=== PATIENT | female | born 1990 | race Caucasian/White ===

== ENCOUNTER → 2018-10-27 15:14 | Outpatient (CLI) | payer OTHER, MEDICAID, SELFPAY | PROVIDERS: PCP Family Medicine; Visit Provider Physician Assistant | DX: N89.8 Other specified noninflammatory disorders of vagina (principal) | CPT/HCPCS: 87210 ==

== ENCOUNTER → 2018-11-17 19:17 | Outpatient (CLI) | payer OTHER, MEDICAID, SELFPAY ==
[2018-11-17 21:14] LABS: Urine N gonorrhoeae NOT DETECTED
[2018-11-17 21:57] LABS: Urine Chlamydia NOT DETECTED
== END ==
PROVIDERS: PCP Family Medicine; Visit Provider Physician Assistant
DX: R35.0 Frequency of micturition (principal); Z11.3 Encounter for screening for infections with a predominantly sexual mode of transmission
CPT/HCPCS: 87086; 87491; 87591

== ENCOUNTER → 2018-12-09 16:30 | Outpatient (CLI) | payer OTHER, MEDICAID, SELFPAY ==
[2018-12-09 18:22] LABS: HCG Quantitative /Beta subunit < 2.39 mIU/mL
== END ==
PROVIDERS: PCP Family Medicine; Visit Provider Physician Assistant
DX: R35.0 Frequency of micturition (principal)
CPT/HCPCS: 36415; 84702

== ENCOUNTER → 2019-03-30 14:42 | Outpatient (CLI) | payer OTHER, MEDICAID, SELFPAY ==
[2019-03-30 15:50] LABS: HCG Quantitative /Beta subunit < 2.39 mIU/mL
== END ==
PROVIDERS: PCP Family Medicine; Visit Provider Obstetrics & Gynecology
DX: Z34.81 Encounter for supervision of other normal pregnancy, first trimester (principal)
CPT/HCPCS: 36415; 84702

== ENCOUNTER 2019-05-26 11:27 | Emergency (ER) | payer OTHER, MEDICAID, SELFPAY ==
[2019-05-26 11:30] VITALS: BP 105/52; PULSE 74; RESP 16; TEMP 36.8; O2SAT 97
[2019-05-26 11:52] LABS: Bacteria Urine None Seen
--- NOTE | 2019-05-26 12:01 | DI.US.S_ITS ---
PROCEDURE: US OB <= 14 WEEKS FETUS INDICATIONS: CRAMPING OUTSIDE/PRIOR DATING DATA: Last menstrual period (LMP): Unknown. LMP-based estimated date of delivery (PORSCHE): Unknown. First dating scan (date and location): 05/26/19. Estimated date of delivery (PORSCHE) from first dating scan: 01/21/20. TECHNIQUE: Real-time scanning was performed of the fetus and maternal pelvic organs, with image documentation. Endovaginal scanning was also performed to better visualize the fetus and maternal ovaries. COMPARISON: None. FINDINGS: Embryo: Possible early gestational sac is noted within the endometrium and measures 1 cm in diameter. Estimated gestational age is 5 weeks 5 days. No pole is seen. No cardiac activity is detected. Measurement variability in dating: +/- 4 weeks by LMP, +/- 7 days by mean sac diameter (use before 6 weeks gestation if crown-rump length not able to be measured), +/- 5 days by crown-rump length (up to 8 weeks 6 days gestation), +/- 7 days by crown-rump length (up to 13 weeks 6 days gestation). Maternal organs: 2 cm corpus luteal cyst is noted in left ovary. Right ovary is not well seen on this study Limited images through the kidneys demonstrate no hydronephrosis. IMPRESSION: 1. Single gestational sac seen within the endometrium. No pole or cardiac activity is detected. Followup with serial beta-hCG level and ultrasound is recommended for evaluation of viable . Dictated by: Randy Tineo M.D. on 05/26/2019 at 12:44 Approved by: Randy Tineo M.D. on 05/26/2019 at 12:46
[2019-05-26 12:03] LABS: Culture Indicated Urine Specimen Cultured; Hyaline Casts Urine 0-1/LPF; Mucus Urine 2+ (Negative); RBC Urine 10-30/HPF (0-5/HPF); Squamous Epithelial Cell Urine 1-5 /HPF (0-5/HPF); WBC Urine 5-10/HPF (0-5/HPF)
--- NOTE | 2019-05-26 12:06 | ED.PREGNANCY ---
HPI - <MOSHE Chang - Last Filed: 05/26/19 18:48> General Chief complaint: Urogenital-Female Stated complaint: 6 wks prg in pain Time Seen by Provider: 05/26/19 11:44 Source: patient Mode of arrival: ambulatory Limitations: no limitations History of Present Illness HPI Narrative: 28-year-old female , presents emergency department today complaining of lower abdominal cramping starting yesterday when she was moving linen to different floors while at work. States the cramping in her lower pelvic region started yesterday afternoon and resolved this morning, but returned later today while she was at work. Patient states she has had nausea and vomiting with this and reports 1 episode of syncope a few weeks ago, she felt lightheaded during this time had not been drinking a lot of fluid and had not eaten, she felt weak and collapsed on the floor but was able to hear her grandmother around her. Patient also reports she has had worsening vision over the past few months, was recently seen by her eye doctor and her prescription was updated significantly. She does not have a new prescription at this time. Does report eye strain and a 2/10 dull aching headache that occurs behind her eyes mostly during the day. Denies vaginal bleeding, vaginal spotting, vomiting at this time, recent syncope, double vision, vision loss, confusion, denies hitting her, chest pain, shortness of breath, abdominal pain other than lower pelvic cramping, or increased swelling in her legs. MD Complaint: abdominal pain Onset (ago): day(s) Pain Consistency: intermittent Location: abdomen Severity: moderate Severity scale (1-10): 4 Quality: Cramping Radiation: abdomen Relieving factors: none Exacerbating factors: none Date of Last Menstrual Period: 04/11/19 Patient : Yes Related Data Previous Rx's Medication Instructions Recorded cephalexin 500 mg PO BID 5 Days #10 cap 05/26/19 Allergies Allergy/AdvReac Type Severity Reaction Status Date / Time amoxicillin Allergy Severe UNK Verified 11/17/18 18:45 Penicillins Allergy Severe UNK Verified 11/17/18 18:45 Review of Systems <MOSHE Chang - Last Filed: 05/26/19 18:48> Review of Systems REVIEW OF SYSTEMS: GENERAL: Denies fever or chills. HENT: No head trauma, hearing loss or sore throat. EYES: No loss of vision, double vision. See HPI. CARDIOVASCULAR: No chest pain , see HPI. RESPIRATORY: No shortness of breath or cough. GASTROINTESTINAL: Complains of vomiting, see HPI. GENITOURINARY: Complains of lower abdominal cramping, see HPI. MUSCULOSKELETAL: No pain, weakness, or deformities. INTEGUMENTARY: No rash, lesions, or pruritus. NEURO: No numbness, tingling, memory loss, or confusion. PSYCH: No behavior or mood changes. PMFSH - <MOSHE Chang - Last Filed: 05/26/19 18:48> Past Medical History Medical history: Reports non-contributory Date of Last Menstrual Period: 04/11/19 Patient : Yes Exam <MOSHE Chang - Last Filed: 05/26/19 18:48> Initial Vital Signs Initial Vital Signs: Vital Signs Temperature 98.2 F 05/26/19 11:30 Pulse Rate 74 05/26/19 11:30 Respiratory Rate 16 05/26/19 11:30 Blood Pressure 105/52 L 05/26/19 11:30 Pulse Oximetry 97 05/26/19 11:30 PHYSICAL EXAMINATION: GENERAL: Well groomed, alert, and cooperative. Answers questions promptly and appropriately. Vital signs noted. HENT: Normocephalic, atraumatic. Oral mucosa is pink and moist. EYES: PERRLA, EOMIs, conjunctiva pink, sclera white, no periorbital swelling. NECK: Full range of motion. Nontender with palpation to cervical spine. CHEST: Normal to inspection and without deformities. CARDIOVASCULAR: S1 and S2 sounds normal. Regular rate and rhythm, no murmurs, clicks, or bruits. No pedal edema. RESPIRATORY: Normal respiratory rate, trachea midline, airway patent. No stridor, nasal flaring or accessory muscle use. Lungs are clear in all smith without wheeze, rhonchi, or crackles. GASTROINTESTINAL: Bowel sounds normoactive. Abdomen is soft and non-tender. No organomegaly. MUSCULOSKELETAL: Normal gait and coordination. Equal tone and mass bilaterally. No spinal tenderness or deformities. EXTREMITIES: CMS intact. Moves all extremities. SKIN: Warm, dry, soft, appropriate color for ethnicity. No lesions, rashes, or wounds. NEURO: Alert and Oriented X 3. CN III-XII intact. Good coordination. No ataxia, or sensory deficits, or cognitive issues. PSYCH: Appropriate affect and mood. <Chasity Toussaint DO - Last Filed: 05/27/19 07:16> Initial Vital Signs Initial Vital Signs: Vital Signs Temperature 98.2 F 05/26/19 11:30 Pulse Rate 74 05/26/19 11:30 Respiratory Rate 16 05/26/19 11:30 Blood Pressure 105/52 L 05/26/19 11:30 Pulse Oximetry 97 05/26/19 11:30 Scores <MOSHE Chang - Last Filed: 05/26/19 18:48> Nexus Score for C-Spine Focal Neurologic deficit present: No Midline spinal tenderness present: No Altered level of conciousness present: No Intoxication present: No Distracting Injury Present: No Nexus Criteria for C-spine: 0 Course <MOSHE Chang - Last Filed: 05/26/19 18:48> Orders Ordered: Discontinued Medications Sodium Chloride (Normal Saline 0.9%) 1,000 mls @ 1,000 mls/hr IV BOLUS ONE Stop: 05/26/19 13:00 Last Infusion: 05/26/19 13:53 Dose: 0 mls/hr Admin: 05/26/19 12:18 Dose: 1,000 mls/hr Reevaluation(s) Reevaluation #1: After administration of 1 L of normal saline, patient stated she felt much better and the cramping decreased. At this point patient was wanting to return home. Follow up instructions discussed. Consultations Consultation #1: Patient staffed with Dr. Toussaint. Vital Signs - 8 hr 05/26/19 11:30 05/26/19 14:23 Temperature 98.2 F Pulse Rate 74 70 Respiratory Rate 16 16 Blood Pressure 105/52 L Blood Pressure [Right Arm] 104/64 Pulse Oximetry 97 100 <Chasity Toussaint DO - Last Filed: 05/27/19 07:16> Orders Ordered: Discontinued Medications Sodium Chloride (Normal Saline 0.9%) 1,000 mls @ 1,000 mls/hr IV BOLUS ONE Stop: 05/26/19 13:00 Last Infusion: 05/26/19 13:53 Dose: 0 mls/hr Admin: 05/26/19 12:18 Dose: 1,000 mls/hr Vital Signs - 8 hr 05/26/19 11:30 05/26/19 14:23 Temperature 98.2 F Pulse Rate 74 70 Respiratory Rate 16 16 Blood Pressure 105/52 L Blood Pressure [Right Arm] 104/64 Pulse Oximetry 97 100 MDM - OB/Uterine Contractions <MOSHE Chang - Last Filed: 05/26/19 18:48> Differential Diagnosis Likely normal delivery at term Medical Records Attestation: I reviewed the patient's medical records. Lab Data Attestation: I reviewed the patient's lab results. Result diagrams: 05/26/19 12:10 05/26/19 12:10 Lab Results 05/26/19 05/26/19 05/26/19 Range/Units 11:51 12:10 12:10 WBC 13.0 H (4.5-11.0) X10^3/uL RBC 3.95 L (4.0-5.2) X10^6/uL Hgb 13.1 (12.0-16.0) g/dL Hct 39.4 (36-46) % MCV 99.6 (80-100) fL MCH 33.1 (26-34) PG MCHC 33.3 (30-36) % RDW 13.7 (11.6-14.8) % Plt Count 286 (150-400) X10^3/uL Neut % (Auto) 77.3 H (50-75) % Lymph % (Auto) 14.8 L (25-40) % [place] % (Auto) 5.6 (3-14) % Eos % (Auto) 1.9 L (2-4) % Baso % (Auto) 0.4 (0-2) % Neut # (Auto) 04620 H (1831-7671) /uL Lymph # (Auto) 1900 (8304-1324) /uL [place] # (Auto) 700 (0-900) /uL Eos # (Auto) 300 (0-450) /uL Baso # (Auto) 0 (0-100) /uL Sodium 140 (137-145) mmol/L Potassium 3.9 (3.4-5.1) mmol/L Chloride 106 (98-107) mmol/L Carbon Dioxide 25 (22-32) mmol/L BUN 8 (7-17) mg/dL Creatinine 0.60 (0.52-1.04) mg/dL Estimated GFR > 60.0 (>60) mL/min BUN/Creatinine Ratio 13.3 (6-22) Glucose 80 (70-100) mg/dL Calcium 8.9 (8.4-10.2) mg/dL Total Bilirubin 0.4 (0.2-1.3) mg/dL AST 13 L (14-36) IU/L ALT 13 (9-52) IU/L Alkaline Phosphatase 52 (38-126) U/L Total Protein 6.6 (6.3-8.2) g/dL Albumin 3.9 (3.5-5.0) g/dL Globulin 2.7 (1.7-4.1) g/dL Albumin/Globulin Ratio 1.4 (1.0-2.8) HCG, Quant 98246 mIU/mL Urine RBC 10-30/hpf H (0-5/HPF) Urine WBC 5-10/hpf H (0-5/HPF) Ur Squamous Epith Cells 1-5 /hpf (0-5/HPF) Urine Bacteria None seen (None) Hyaline Casts 0-1/lpf (None) Urine Mucus 2+ H (Negative) Ur Culture Indicated? Specimen cultured Blood Type 05/26/19 Range/Units 12:10 WBC (4.5-11.0) X10^3/uL RBC (4.0-5.2) X10^6/uL Hgb (12.0-16.0) g/dL Hct (36-46) % MCV (80-100) fL MCH (26-34) PG MCHC (30-36) % RDW (11.6-14.8) % Plt Count (150-400) X10^3/uL Neut % (Auto) (50-75) % Lymph % (Auto) (25-40) % [place]undy % (Auto) (3-14) % Eos % (Auto) (2-4) % Baso % (Auto) (0-2) % Neut # (Auto) (4721-8215) /uL Lymph # (Auto) (2940-3545) /uL Dundy # (Auto) (0-900) /uL Eos # (Auto) (0-450) /uL Baso # (Auto) (0-100) /uL Sodium (137-145) mmol/L Potassium (3.4-5.1) mmol/L Chloride (98-107) mmol/L Carbon Dioxide (22-32) mmol/L BUN (7-17) mg/dL Creatinine (0.52-1.04) mg/dL Estimated GFR (>60) mL/min BUN/Creatinine Ratio (6-22) Glucose (70-100) mg/dL Calcium (8.4-10.2) mg/dL Total Bilirubin (0.2-1.3) mg/dL AST (14-36) IU/L ALT (9-52) IU/L Alkaline Phosphatase (38-126) U/L Total Protein (6.3-8.2) g/dL Albumin (3.5-5.0) g/dL Globulin (1.7-4.1) g/dL Albumin/Globulin Ratio (1.0-2.8) HCG, Quant mIU/mL Urine RBC (0-5/HPF) Urine WBC (0-5/HPF) Ur Squamous Epith Cells (0-5/HPF) Urine Bacteria (None) Hyaline Casts (None) Urine Mucus (Negative) Ur Culture Indicated? Blood Type O Positive Point of Care Testing Test Results Positive Urine Dip Bedside Urine Glucose Negative Bedside Urine Bilirubin + 1 Bedside Urine Ketone +/- 5 Urine Specific [place] 1.025 Bedside Urine Occult Blood +++ Bedside Urine pH 5.5 Bedside Urine Protein +/- 15 Bedside Urine Urobilinogen +/- 1mg Bedside Urine Nitrite - Negative Bedside Urine Leukocytes + 70 Esterase MDM Narrative Medical decision making narrative: I suspect that patient has a mild UTI, due to positive leukocytes in her urine, and slightly elevated WBC. Due to patient being , medication was given to treat this condition, cephalexin was used as her allergies penicillin were only rash, and this is safe in . I uncertain the direct cause of her lower abdominal cramping, however less suspicion for a miscarriage due to live gestational sac implanted in uterus, lack of vaginal bleeding,and appropriate levels of serum HCG. Less likely tubal , as gestational sac was seen within the uterus. Strict return precautions given and follow-up instructions discussed. <Chasity Toussaint DO - Last Filed: 05/27/19 07:16> Lab Data Lab Results 05/26/19 05/26/19 05/26/19 Range/Units 11:51 12:10 12:10 WBC 13.0 H (4.5-11.0) X10^3/uL RBC 3.95 L (4.0-5.2) X10^6/uL Hgb 13.1 (12.0-16.0) g/dL Hct 39.4 (36-46) % MCV 99.6 (80-100) fL MCH 33.1 (26-34) PG MCHC 33.3 (30-36) % RDW 13.7 (11.6-14.8) % Plt Count 286 (150-400) X10^3/uL Neut % (Auto) 77.3 H (50-75) % Lymph % (Auto) 14.8 L (25-40) % Dundy % (Auto) 5.6 (3-14) % Eos % (Auto) 1.9 L (2-4) % Baso % (Auto) 0.4 (0-2) % Neut # (Auto) 29368 H (3723-7511) /uL Lymph # (Auto) 1900 (1294-6584) /uL Dundy # (Auto) 700 (0-900) /uL Eos # (Auto) 300 (0-450) /uL Baso # (Auto) 0 (0-100) /uL Sodium 140 (137-145) mmol/L Potassium 3.9 (3.4-5.1) mmol/L Chloride 106 (98-107) mmol/L Carbon Dioxide 25 (22-32) mmol/L BUN 8 (7-17) mg/dL Creatinine 0.60 (0.52-1.04) mg/dL Estimated GFR > 60.0 (>60) mL/min BUN/Creatinine Ratio 13.3 (6-22) Glucose 80 (70-100) mg/dL Calcium 8.9 (8.4-10.2) mg/dL Total Bilirubin 0.4 (0.2-1.3) mg/dL AST 13 L (14-36) IU/L ALT 13 (9-52) IU/L Alkaline Phosphatase 52 (38-126) U/L Total Protein 6.6 (6.3-8.2) g/dL Albumin 3.9 (3.5-5.0) g/dL Globulin 2.7 (1.7-4.1) g/dL Albumin/Globulin Ratio 1.4 (1.0-2.8) HCG, Quant 46305 mIU/mL Urine RBC 10-30/hpf H (0-5/HPF) Urine WBC 5-10/hpf H (0-5/HPF) Ur Squamous Epith Cells 1-5 /hpf (0-5/HPF) Urine Bacteria None seen (None) Hyaline Casts 0-1/lpf (None) Urine Mucus 2+ H (Negative) Ur Culture Indicated? Specimen cultured Blood Type 05/26/19 Range/Units 12:10 WBC (4.5-11.0) X10^3/uL RBC (4.0-5.2) X10^6/uL Hgb (12.0-16.0) g/dL Hct (36-46) % MCV (80-100) fL MCH (26-34) PG MCHC (30-36) % RDW (11.6-14.8) % Plt Count (150-400) X10^3/uL Neut % (Auto) (50-75) % Lymph % (Auto) (25-40) % [place]undy % (Auto) (3-14) % Eos % (Auto) (2-4) % Baso % (Auto) (0-2) % Neut # (Auto) (0350-6357) /uL Lymph # (Auto) (5726-3715) /uL [place]undy # (Auto) (0-900) /uL Eos # (Auto) (0-450) /uL Baso # (Auto) (0-100) /uL Sodium (137-145) mmol/L Potassium (3.4-5.1) mmol/L Chloride (98-107) mmol/L Carbon Dioxide (22-32) mmol/L BUN (7-17) mg/dL Creatinine (0.52-1.04) mg/dL Estimated GFR (>60) mL/min BUN/Creatinine Ratio (6-22) Glucose (70-100) mg/dL Calcium (8.4-10.2) mg/dL Total Bilirubin (0.2-1.3) mg/dL AST (14-36) IU/L ALT (9-52) IU/L Alkaline Phosphatase (38-126) U/L Total Protein (6.3-8.2) g/dL Albumin (3.5-5.0) g/dL Globulin (1.7-4.1) g/dL Albumin/Globulin Ratio (1.0-2.8) HCG, Quant mIU/mL Urine RBC (0-5/HPF) Urine WBC (0-5/HPF) Ur Squamous Epith Cells (0-5/HPF) Urine Bacteria (None) Hyaline Casts (None) Urine Mucus (Negative) Ur Culture Indicated? Blood Type O Positive Point of Care Testing Test Results Positive Urine Dip Bedside Urine Glucose Negative Bedside Urine Bilirubin + 1 Bedside Urine Ketone +/- 5 Urine Specific [place] 1.025 Bedside Urine Occult Blood +++ Bedside Urine pH 5.5 Bedside Urine Protein +/- 15 Bedside Urine Urobilinogen +/- 1mg Bedside Urine Nitrite - Negative Bedside Urine Leukocytes + 70 Esterase Discharge Plan Departure Patient Disposition: Home Clinical Impression: UTI (urinary tract infection) Discharge Date/Time: 05/26/19 14:29 Interventions: ED Discharge Assessment Last Done: 05/26/19 14:28 Instructions: DI for Urinary Tract Infection (UTI) Activity Restrictions/Additional Instructions: Thank you for entrusting me with your care today. As discussed, her laboratory work and ultrasound show a healthy gestational sac within the uterus. However follow-up with her OB is recommended for further testing. Your urinalysis showed and urinary tract infection, I have prescribed a medication that is safe to take during . Please monitor yourself for hives, shortness of breath, chest pain, nausea vomiting or diarrhea, if these occur please return emergency department. Additionally return if you of heavy bleeding. Prescriptions: New cephalexin 500 mg capsule 500 mg PO BID 5 Days Qty: 10 RF: 0 Referrals: Criselda Griffin MD [Primary Care Provider] - <Chasity Toussaint DO - Last Filed: 05/27/19 07:16> Cosign ED Attending Coscindyature Attestation: I was immediately available in the department for consultation. Documentation has been reviewed. I agree with assessment and plan.
--- NOTE | 2019-05-26 12:10 | ED_ITS ---
HPI - <MOHSE Chang - Last Filed: 05/26/19 18:48> General Chief complaint: Urogenital-Female Stated complaint: 6 wks prg in pain Time Seen by Provider: 05/26/19 11:44 Source: patient Mode of arrival: ambulatory Limitations: no limitations History of Present Illness HPI Narrative: 28-year-old female , presents emergency department today complaining of lower abdominal cramping starting yesterday when she was moving linen to different floors while at work. States the cramping in her lower pelvic region started yesterday afternoon and resolved this morning, but retur nora later today while she was at work. Patient states she has had nausea and vomiting with this and reports 1 episode of syncope a few weeks ago, she felt lightheaded during this time had not been drinking a lot of fluid and had not eaten, she felt weak and collapsed on the floor but was able to hear her grandmother around her. Patient also reports she has had worsening vision over the past few months, was recently seen by her eye doctor and her prescription was updated significantly. She does not have a new prescription at this time. Does report eye strain and a 2/10 dull aching headache that occurs behind her eyes mostly during the day. Denies vaginal bleeding, vaginal spotting, vomiting at this time, recent syncope, double vision, vision loss, confusion, denies hitting her, chest pain, shortness of breath, abdominal pain other than lower pelvic cramping, or increased swelling in her legs. MD Complaint: abdominal pain Onset (ago): day(s) Pain Consistency: intermittent Location: abdomen Severity: moderate Severity scale (1-10): 4 Quality: Cramping Radiation: abdomen Relieving factors: none Exacerbating factors: none Date of Last Menstrual Period: 04/11/19 Patient : Yes Related Data Previous Rx's Medication Instructions Recorded cephalexin 500 mg PO BID 5 Days #10 cap 05/26/19 Allergies Allergy/AdvReac Type Severity Reaction Status Date / Time amoxicillin Allergy Severe UNK Verified 11/17/18 18:45 Penicillins Allergy Severe UNK Verified 11/17/18 18:45 Review of Systems <MOSHE Chang - Last Filed: 05/26/19 18:48> Review of Systems REVIEW OF SYSTEMS: GENERAL: Denies fever or chills. HENT: No head trauma, hearing loss or sore throat. EYES: No loss of vision, double vision. See HPI. CARDIOVASCULAR: No chest pain , see HPI. RESPIRATORY: No shortness of breath or cough. GASTROINTESTINAL: Complains of vomiting, see HPI. GENITOURINARY: Complains of lower abdominal cramping, see HPI. MUSCULOSKELETAL: No pain, weakness, or deformities. INTEGUMENTARY: No rash, lesions, or pruritus. NEURO: No numbness, tingling, memory loss, or confusion. PSYCH: No behavior or mood changes. PMFSH - <MOSHE Chang - Last Filed: 05/26/19 18:48> Past Medical History Medical history: Reports non-contributory Date of Last Menstrual Period: 04/11/19 Patient : Yes Exam <MOSHE Chang - Last Filed: 05/26/19 18:48> Initial Vital Signs Initial Vital Signs: Vital Signs Temperature 98.2 F 05/26/19 11:30 Pulse Rate 74 05/26/19 11:30 Respiratory Rate 16 05/26/19 11:30 Blood Pressure 105/52 L 05/26/19 11:30 Pulse Oximetry 97 05/26/19 11:30 PHYSICAL EXAMINATION: GENERAL: Well groomed, alert, and cooperative. Answers questions promptly and appropriately. Vital signs noted. HENT: Normocephalic, atraumatic. Oral mucosa is pink and moist. EYES: PERRLA, EOMIs, conjunctiva pink, sclera white, no periorbital swelling. NECK: Full range of motion. Nontender with palpation to cervical spine. CHEST: Normal to inspection and without deformities. CARDIOVASCULAR: S1 and S2 sounds normal. Regular rate and rhythm, no murmurs, clicks, or bruits. No pedal edema. RESPIRATORY: Normal respiratory rate, trachea midline, airway patent. No stridor, nasal flaring or accessory muscle use. Lungs are clear in all smith without wheeze, rhonchi, or crackles. GASTROINTESTINAL: Bowel sounds normoactive. Abdomen is soft and non-tender. No organomegaly. MUSCULOSKELETAL: Normal gait and coordination. Equal tone and mass bilaterally. No spinal tenderness or deformities. EXTREMITIES: CMS intact. Moves all extremities. SKIN: Warm, dry, soft, appropriate color for ethnicity. No lesions, rashes, or wounds. NEURO: Alert and Oriented X 3. CN III-XII intact. Good coordination. No ataxia, or sensory deficits, or cognitive issues. PSYCH: Appropriate affect and mood. <Chasity Toussaint DO - Last Filed: 05/27/19 07:16> Initial Vital Signs Initial Vital Signs: Vital Signs Temperature 98.2 F 05/26/19 11:30 Pulse Rate 74 05/26/19 11:30 Respiratory Rate 16 05/26/19 11:30 Blood Pressure 105/52 L 05/26/19 11:30 Pulse Oximetry 97 05/26/19 11:30 Scores <MOSHE Chang - Last Filed: 05/26/19 18:48> Nexus Score for C-Spine Focal Neurologic deficit present: No Midline spinal tenderness present: No Altered level of conciousness present: No Intoxication present: No Distracting Injury Present: No Nexus Criteria for C-spine: 0 Course <MOSHE Chang - Last Filed: 05/26/19 18:48> Orders Ordered: Discontinued Medications Sodium Chloride (Normal Saline 0.9%) 1,000 mls @ 1,000 mls/hr IV BOLUS ONE Stop: 05/26/19 13:00 Last Infusion: 05/26/19 13:53 Dose: 0 mls/hr Admin: 05/26/19 12:18 Dose: 1,000 mls/hr Reevaluation(s) Reevaluation #1: After administration of 1 L of normal saline, patient stated she felt much better and the cramping decreased. At this point patient was wanting to return home. Follow up instructions discussed. Consultations Consultation #1: Patient staffed with Dr. Toussaint. Vital Signs - 8 hr 05/26/19 11:30 05/26/19 14:23 Temperature 98.2 F Pulse Rate 74 70 Respiratory Rate 16 16 Blood Pressure 105/52 L Blood Pressure [Right Arm] 104/64 Pulse Oximetry 97 100 <Chasity Toussaint DO - Last Filed: 05/27/19 07:16> Orders Ordered: Discontinued Medications Sodium Chloride (Normal Saline 0.9%) 1,000 mls @ 1,000 mls/hr IV BOLUS ONE Stop: 05/26/19 13:00 Last Infusion: 05/26/19 13:53 Dose: 0 mls/hr Admin: 05/26/19 12:18 Dose: 1,000 mls/hr Vital Signs - 8 hr 05/26/19 11:30 05/26/19 14:23 Temperature 98.2 F Pulse Rate 74 70 Respiratory Rate 16 16 Blood Pressure 105/52 L Blood Pressure [Right Arm] 104/64 Pulse Oximetry 97 100 MDM - OB/Uterine Contractions <MOSHE Chang - Last Filed: 05/26/19 18:48> Differential Diagnosis Likely normal delivery at term Medical Records Attestation: I reviewed the patient's medical records. Lab Data Attestation: I reviewed the patient's lab results. Result diagrams: 05/26/19 12:10 05/26/19 12:10 Lab Results 05/26/19 05/26/19 05/26/19 Range/Units 11:51 12:10 12:10 WBC 13.0 H (4.5-11.0) X10^3/uL RBC 3.95 L (4.0-5.2) X10^6/uL Hgb 13.1 (12.0-16.0) g/dL Hct 39.4 (36-46) % MCV 99.6 (80-100) fL MCH 33.1 (26-34) PG MCHC 33.3 (30-36) % RDW 13.7 (11.6-14.8) % Plt Count 286 (150-400) X10^3/uL Neut % (Auto) 77.3 H (50-75) % Lymph % (Auto) 14.8 L (25-40) % Donley % (Auto) 5.6 (3-14) % Eos % (Auto) 1.9 L (2-4) % Baso % (Auto) 0.4 (0-2) % Neut # (Auto) 37506 H (1714-8538) /uL Lymph # (Auto) 1900 (1410-7206) /uL Donley # (Auto) 700 (0-900) /uL Eos # (Auto) 300 (0-450) /uL Baso # (Auto) 0 (0-100) /uL Sodium 140 (137-145) mmol/L Potassium 3.9 (3.4-5.1) mmol/L Chloride 106 (98-107) mmol/L Carbon Dioxide 25 (22-32) mmol/L BUN 8 (7-17) mg/dL Creatinine 0.60 (0.52-1.04) mg/dL Estimated GFR > 60.0 (>60) mL/min BUN/Creatinine Ratio 13.3 (6-22) Glucose 80 (70-100) mg/dL Calcium 8.9 (8.4-10.2) mg/dL Total Bilirubin 0.4 (0.2-1.3) mg/dL AST 13 L (14-36) IU/L ALT 13 (9-52) IU/L Alkaline Phosphatase 52 (38-126) U/L Total Protein 6.6 (6.3-8.2) g/dL Albumin 3.9 (3.5-5.0) g/dL Globulin 2.7 (1.7-4.1) g/dL Albumin/Globulin Ratio 1.4 (1.0-2.8) HCG, Quant 93973 mIU/mL Urine RBC 10-30/hpf H (0-5/HPF) Urine WBC 5-10/hpf H (0-5/HPF) Ur Squamous Epith Cells 1-5 /hpf (0-5/HPF) Urine Bacteria None seen (None) Hyaline Casts 0-1/lpf (None) Urine Mucus 2+ H (Negative) Ur Culture Indicated? Specimen cultured Blood Type 05/26/19 Range/Units 12:10 WBC (4.5-11.0) X10^3/uL RBC (4.0-5.2) X10^6/uL Hgb (12.0-16.0) g/dL Hct (36-46) % MCV (80-100) fL MCH (26-34) PG MCHC (30-36) % RDW (11.6-14.8) % Plt Count (150-400) X10^3/uL Neut % (Auto) (50-75) % Lymph % (Auto) (25-40) % Donley % (Auto) (3-14) % Eos % (Auto) (2-4) % Baso % (Auto) (0-2) % Neut # (Auto) (2260-2636) /uL Lymph # (Auto) (1878-2405) /uL Donley # (Auto) (0-900) /uL Eos # (Auto) (0-450) /uL Baso # (Auto) (0-100) /uL Sodium (137-145) mmol/L Potassium (3.4-5.1) mmol/L Chloride (98-107) mmol/L Carbon Dioxide (22-32) mmol/L BUN (7-17) mg/dL Creatinine (0.52-1.04) mg/dL Estimated GFR (>60) mL/min BUN/Creatinine Ratio (6-22) Glucose (70-100) mg/dL Calcium (8.4-10.2) mg/dL Total Bilirubin (0.2-1.3) mg/dL AST (14-36) IU/L ALT (9-52) IU/L Alkaline Phosphatase (38-126) U/L Total Protein (6.3-8.2) g/dL Albumin (3.5-5.0) g/dL Globulin (1.7-4.1) g/dL Albumin/Globulin Ratio (1.0-2.8) HCG, Quant mIU/mL Urine RBC (0-5/HPF) Urine WBC (0-5/HPF) Ur Squamous Epith Cells (0-5/HPF) Urine Bacteria (None) Hyaline Casts (None) Urine Mucus (Negative) Ur Culture Indicated? Blood Type O Positive Point of Care Testing Test Results Positive Urine Dip Bedside Urine Glucose Negative Bedside Urine Bilirubin + 1 Bedside Urine Ketone +/- 5 Urine Specific Champion 1.025 Bedside Urine Occult Blood +++ Bedside Urine pH 5.5 Bedside Urine Protein +/- 15 Bedside Urine Urobilinogen +/- 1mg Bedside Urine Nitrite - Negative Bedside Urine Leukocytes + 70 Esterase MDM Narrative Medical decision making narrative: I suspect that patient has a mild UTI, due to positive leukocytes in her urine, and slightly elevated WBC. Due to patient being , medication was given to treat this condition, cephalexin was used as her allergies penicillin were only rash, and this is safe in . I uncertain the direct cause of her lower abdominal cramping, however less suspicion for a miscarriage due to live gestational sac implanted in uterus, lack of vaginal bleeding,and appropriate levels of serum HCG. Less likely tubal , as gestational sac was seen within the uterus. Strict return precautions given and follow-up instructions discussed. <Chasity Toussaint DO - Last Filed: 05/27/19 07:16> Lab Data Lab Results 05/26/19 05/26/19 05/26/19 Range/Units 11:51 12:10 12:10 WBC 13.0 H (4.5-11.0) X10^3/uL RBC 3.95 L (4.0-5.2) X10^6/uL Hgb 13.1 (12.0-16.0) g/dL Hct 39.4 (36-46) % MCV 99.6 (80-100) fL MCH 33.1 (26-34) PG MCHC 33.3 (30-36) % RDW 13.7 (11.6-14.8) % Plt Count 286 (150-400) X10^3/uL Neut % (Auto) 77.3 H (50-75) % Lymph % (Auto) 14.8 L (25-40) % Donley % (Auto) 5.6 (3-14) % Eos % (Auto) 1.9 L (2-4) % Baso % (Auto) 0.4 (0-2) % Neut # (Auto) 76291 H (1271-3455) /uL Lymph # (Auto) 1900 (8949-7076) /uL Donley # (Auto) 700 (0-900) /uL Eos # (Auto) 300 (0-450) /uL Baso # (Auto) 0 (0-100) /uL Sodium 140 (137-145) mmol/L Potassium 3.9 (3.4-5.1) mmol/L Chloride 106 (98-107) mmol/L Carbon Dioxide 25 (22-32) mmol/L BUN 8 (7-17) mg/dL Creatinine 0.60 (0.52-1.04) mg/dL Estimated GFR > 60.0 (>60) mL/min BUN/Creatinine Ratio 13.3 (6-22) Glucose 80 (70-100) mg/dL Calcium 8.9 (8.4-10.2) mg/dL Total Bilirubin 0.4 (0.2-1.3) mg/dL AST 13 L (14-36) IU/L ALT 13 (9-52) IU/L Alkaline Phosphatase 52 (38-126) U/L Total Protein 6.6 (6.3-8.2) g/dL Albumin 3.9 (3.5-5.0) g/dL Globulin 2.7 (1.7-4.1) g/dL Albumin/Globulin Ratio 1.4 (1.0-2.8) HCG, Quant 15016 mIU/mL Urine RBC 10-30/hpf H (0-5/HPF) Urine WBC 5-10/hpf H (0-5/HPF) Ur Squamous Epith Cells 1-5 /hpf (0-5/HPF) Urine Bacteria None seen (None) Hyaline Casts 0-1/lpf (None) Urine Mucus 2+ H (Negative) Ur Culture Indicated? Specimen cultured Blood Type 05/26/19 Range/Units 12:10 WBC (4.5-11.0) X10^3/uL RBC (4.0-5.2) X10^6/uL Hgb (12.0-16.0) g/dL Hct (36-46) % MCV (80-100) fL MCH (26-34) PG MCHC (30-36) % RDW (11.6-14.8) % Plt Count (150-400) X10^3/uL Neut % (Auto) (50-75) % Lymph % (Auto) (25-40) % Donley % (Auto) (3-14) % Eos % (Auto) (2-4) % Baso % (Auto) (0-2) % Neut # (Auto) (4920-1606) /uL Lymph # (Auto) (6716-6530) /uL Donley # (Auto) (0-900) /uL Eos # (Auto) (0-450) /uL Baso # (Auto) (0-100) /uL Sodium (137-145) mmol/L Potassium (3.4-5.1) mmol/L Chloride (98-107) mmol/L Carbon Dioxide (22-32) mmol/L BUN (7-17) mg/dL Creatinine (0.52-1.04) mg/dL Estimated GFR (>60) mL/min BUN/Creatinine Ratio (6-22) Glucose (70-100) mg/dL Calcium (8.4-10.2) mg/dL Total Bilirubin (0.2-1.3) mg/dL AST (14-36) IU/L ALT (9-52) IU/L Alkaline Phosphatase (38-126) U/L Total Protein (6.3-8.2) g/dL Albumin (3.5-5.0) g/dL Globulin (1.7-4.1) g/dL Albumin/Globulin Ratio (1.0-2.8) HCG, Quant mIU/mL Urine RBC (0-5/HPF) Urine WBC (0-5/HPF) Ur Squamous Epith Cells (0-5/HPF) Urine Bacteria (None) Hyaline Casts (None) Urine Mucus (Negative) Ur Culture Indicated? Blood Type O Positive Point of Care Testing Test Results Positive Urine Dip Bedside Urine Glucose Negative Bedside Urine Bilirubin + 1 Bedside Urine Ketone +/- 5 Urine Specific Champion 1.025 Bedside Urine Occult Blood +++ Bedside Urine pH 5.5 Bedside Urine Protein +/- 15 Bedside Urine Urobilinogen +/- 1mg Bedside Urine Nitrite - Negative Bedside Urine Leukocytes + 70 Esterase Discharge Plan Departure Patient Disposition: Home Clinical Impression: UTI (urinary tract infection) Discharge Date/Time: 05/26/19 14:29 Interventions: ED Discharge Assessment Last Done: 05/26/19 14:28 Instructions: DI for Urinary Tract Infection (UTI) Activity Restrictions/Additional Instructions: Thank you for entrusting me with your care today. As discussed, her laboratory work and ultrasound show a healthy gestational sac within the uterus. However follow-up with her OB is recommended for further testing. Your urinalysis showed and urinary tract infection, I have prescribed a medication that is safe to take during . Please monitor yourself for hives, shortness of breath, chest pain, nausea vomiting or diarrhea, if these occur please return emergency department. Additionally return if you of heavy bleeding. Prescriptions: New cephalexin 500 mg capsule 500 mg PO BID 5 Days Qty: 10 RF: 0 Referrals: Criselda Griffin MD [Primary Care Provider] - <Chasity Toussaint DO - Last Filed: 05/27/19 07:16> Cosign ED Attending Miature Attestation: I was immediately available in the department for consultation. Documentation has been reviewed. I agree with assessment and plan.
--- NOTE | 2019-05-26 12:14 | PC.NURSE ---
PIV placed, bloodwork drawn and labelled at bedside after 2 [employer] supervisor check with pt, conveyed to lab via tube system
[2019-05-26] MEDS: SODIUM CHLORIDE 0.9% 1,000 ML 1000 ML IV (12:18)
[2019-05-26 12:25] LABS: Add Manual Diff / Slide Review NO; Basophils Absolute Auto 0 /uL (0-100); Basophils Percent Auto 0.4 % (0-2); Eosinophils Absolute Auto 300 /uL (0-450); Eosinophils Percent Auto 1.9 % (2-4); Hematocrit 39.4 % (36-46); Hemoglobin 13.1 g/dL (12.0-16.0); Lymphocytes Absolute Auto 1900 /uL (1100-4500); Lymphocytes Percent Auto 14.8 % (25-40); Mean Corpuscular HGB Conc 33.3 % (30-36); Mean Corpuscular Hemoglobin 33.1 PG (26-34); Mean Corpuscular Volume 99.6 fL (80-100); Monocytes Absolute Auto 700 /uL (0-900); Monocytes Percent Auto 5.6 % (3-14); Neutrophils Absolute Auto 10100 /uL (1500-7000); Neutrophils Percent Auto 77.3 % (50-75); Platelet Count 286 X10^3/uL (150-400); Red Blood Cell Count 3.95 X10^6/uL (4.0-5.2); Red Cell Distribution Width 13.7 % (11.6-14.8)
[2019-05-26 12:36] LABS: Alanine Aminotransferase 13 IU/L (9-52); Albumin 3.9 g/dL (3.5-5.0); Albumin Globulin Ratio 1.4 (1.0-2.8); Alkaline Phosphatase 52 U/L (38-126); Aspartate Aminotransferase 13 IU/L (14-36); BUN Creatinine Ratio 13.3 (6-22); Bilirubin Total 0.4 mg/dL (0.2-1.3); Blood Urea Nitrogen 8 mg/dL (7-17); Calcium 8.9 mg/dL (8.4-10.2); Carbon Dioxide 25 mmol/L (22-32); Chloride 106 mmol/L (98-107); Estimated Glomerular Filt Rate > 60.0 mL/min (>60); Globulin 2.7 g/dL (1.7-4.1); Glucose 80 mg/dL (70-100); HEMOLYSIS < 15 (0-50); Potassium 3.9 mmol/L (3.4-5.1); Sodium 140 mmol/L (137-145); Total Protein 6.6 g/dL (6.3-8.2)
[2019-05-26 12:53] LABS: HCG Quantitative /Beta subunit 10829 mIU/mL
[2019-05-26 14:23] VITALS: BP 104/64; PULSE 70; RESP 16; O2SAT 100
== END 2019-05-26 14:29 | disposition home or self-care (01) ==
PROVIDERS: Emergency Provider Nurse Practitioner; PCP Family Medicine
DX: O23.41 Unspecified infection of urinary tract in pregnancy, first trimester (principal); Z3A.01 Less than 8 weeks gestation of pregnancy
CPT/HCPCS: 36415; 36591; 76801; 76817; 80053; 81003; 81015; 81025; 84702; 85025; 86900; 86901; 87077; 87086; 96360; 96361; 99283; 99284

== ENCOUNTER → 2019-05-28 10:38 | Outpatient (CLI) | payer OTHER, MEDICAID, SELFPAY ==
[2019-05-28 12:22] LABS: HCG Quantitative /Beta subunit 16099 mIU/mL
== END ==
PROVIDERS: PCP Family Medicine; Visit Provider Obstetrics & Gynecology
DX: O20.0 Threatened abortion (principal)
CPT/HCPCS: 36415; 84702

== ENCOUNTER → 2019-06-06 09:29 | Outpatient (CLI) | payer OTHER, MEDICAID, SELFPAY ==
--- NOTE | 2019-06-06 09:31 | DI.US.S_ITS ---
PROCEDURE: US OB <= 14 WEEKS FETUS INDICATIONS: DATING OUTSIDE/PRIOR DATING DATA: Last menstrual period (LMP): Unknown. LMP-based estimated date of delivery (PORSCHE): Unknown. First dating scan (date and location): 06/06/19, [facility], based upon crown-rump length Estimated date of delivery (PORSCHE) from first dating scan: 01/21/20. TECHNIQUE: Real-time scanning was performed of the fetus and maternal pelvic organs, with image documentation. Endovaginal scanning was also performed to better visualize the fetus and maternal ovaries. COMPARISON: [facility], , OB <= 14 WEEKS FETUS, 05/26/2019, 13:05. FINDINGS: Embryo: A single live intrauterine is seen. The measured heart rate is 133 beats per minute. The crown-rump length measures 1.1 cm, corresponding to an estimated gestational age of 7 weeks 1 day. It is too early for detailed anatomic assessment. By visual inspection, the amount of amniotic fluid is within normal limits. Along the left fundus, there is apparent subchorionic hemorrhage seen and measures 1.9 x 1.3 x 1 cm. Measurement variability in dating: +/- 4 weeks by LMP, +/- 7 days by mean sac diameter (use before 6 weeks gestation if crown-rump length not able to be measured), +/- 5 days by crown-rump length (up to 8 weeks 6 days gestation), +/- 7 days by crown-rump length (up to 13 weeks 6 days gestation). Maternal organs: Ovaries are unremarkable, with an apparent left corpus luteum. Limited images through the kidneys demonstrate no hydronephrosis. Incidental note is made of maternal horseshoe kidney. IMPRESSION: A single live intrauterine is seen. Subchorionic hemorrhage is incidentally noted. 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 Dictated by: Arron Kearney M.D. on 06/06/2019 at 11:11 Approved by: Arron Kearney M.D. on 06/06/2019 at 11:14
== END ==
PROVIDERS: PCP Family Medicine; Visit Provider Obstetrics & Gynecology
DX: Z34.81 Encounter for supervision of other normal pregnancy, first trimester (principal); Z3A.08 8 weeks gestation of pregnancy
CPT/HCPCS: 76801; 76817

== ENCOUNTER → 2019-06-24 13:24 | Outpatient (CLI) | payer OTHER, MEDICAID, SELFPAY ==
[2019-06-24 13:49] LABS: Appearance Urine UA SL CLOUDY; Bilirubin Urine UA NEGATIVE (NEGATIVE); Color Urine UA YELLOW; Glucose Urine UA NEGATIVE (Negative); Ketones Urine UA NEGATIVE (NEGATIVE); Leukocyte Esterase Urine UA NEGATIVE (NEGATIVE); Nitrite Urine UA NEGATIVE (Negative); Occult Blood Urine UA NEGATIVE (Negative); Protein Urine UA NEGATIVE (Negative); Specific Gravity Urine UA >=1.030 (1.000-1.035); Urobilinogen Urine UA 0.2 E.U./dL (0.2)
[2019-06-24 13:51] LABS: Add Manual Diff / Slide Review NO; Basophils Absolute Auto 100 /uL (0-100); Basophils Percent Auto 0.5 % (0-2); Eosinophils Absolute Auto 200 /uL (0-450); Eosinophils Percent Auto 1.4 % (2-4); Hematocrit 36.2 % (36-46); Hemoglobin 12.1 g/dL (12.0-16.0); Lymphocytes Absolute Auto 2400 /uL (1100-4500); Lymphocytes Percent Auto 20.7 % (25-40); Mean Corpuscular HGB Conc 33.5 % (30-36); Mean Corpuscular Hemoglobin 33.2 PG (26-34); Mean Corpuscular Volume 99.3 fL (80-100); Monocytes Absolute Auto 600 /uL (0-900); Monocytes Percent Auto 5.1 % (3-14); Neutrophils Absolute Auto 8200 /uL (1500-7000); Neutrophils Percent Auto 72.3 % (50-75); Platelet Count 258 X10^3/uL (150-400); Red Blood Cell Count 3.65 X10^6/uL (4.0-5.2); Red Cell Distribution Width 13.6 % (11.6-14.8); White Blood Cell Count 11.3 X10^3/uL (4.5-11.0)
[2019-06-24 16:06] LABS: Hepatitis B Surface Antigen NEGATIVE s/c (NEGATIVE); Rubella Antibody IgG 51.6 IU/mL (>15)
[2019-06-24 16:24] LABS: Hep C Virus Ab w/Reflex Quant NEGATIVE s/c (NEGATIVE)
[2019-06-26 16:08] LABS: RPR Screen Nonreactive (Nonreactive)
[2019-06-29 16:49] LABS: HIV 1 & 2 Ab/Ag 4th Gen Combo NEGATIVE (NEGATIVE)
== END ==
PROVIDERS: PCP Family Medicine; Visit Provider Obstetrics & Gynecology
DX: Z34.81 Encounter for supervision of other normal pregnancy, first trimester (principal)
CPT/HCPCS: 36415; 80055; 81003; 86787; 86803; 86850; 86900; 86901; 87086; 87389

== ENCOUNTER 2019-06-28 16:13 | Emergency (ER) | payer OTHER, MEDICAID, SELFPAY ==
[2019-06-28 16:14] VITALS: BP 132/86; PULSE 130; RESP 22; TEMP 36.4; O2SAT 97
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
[2019-06-28 16:30] VITALS: BP 114/80; PULSE 104; RESP 22; O2SAT 95
[2019-06-28 16:43] LABS: Bacteria Urine None Seen; RBC Urine None Seen (0-5/HPF)
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
[2019-06-28 16:51] LABS: Squamous Epithelial Cell Urine 10-30 /HPF (0-5/HPF); WBC Urine 5-10/HPF (0-5/HPF)
[2019-06-28 16:52] LABS: Calcium Oxalate Crystals Urine Few; Culture Indicated Urine Cult Not Indicated; Mucus Urine 2+ (Negative)
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
[2019-06-28] MEDS: SODIUM CHLORIDE 0.9% 1,000 ML 1000 ML IV (16:59)
[2019-06-28 17:11] VITALS: BP 102/70; PULSE 89; RESP 19
[2019-06-28 17:12] LABS: Add Manual Diff / Slide Review NO; Basophils Absolute Auto 0 /uL (0-100); Basophils Percent Auto 0.2 % (0-2); Eosinophils Absolute Auto 100 /uL (0-450); Eosinophils Percent Auto 0.8 % (2-4); Hemoglobin 11.8 g/dL (12.0-16.0); Lymphocytes Absolute Auto 2100 /uL (1100-4500); Lymphocytes Percent Auto 12.4 % (25-40); Mean Corpuscular HGB Conc 33.7 % (30-36); Mean Corpuscular Hemoglobin 33.4 PG (26-34); Mean Corpuscular Volume 99.2 fL (80-100); Monocytes Absolute Auto 800 /uL (0-900); Monocytes Percent Auto 4.9 % (3-14); Neutrophils Absolute Auto 13800 /uL (1500-7000); Neutrophils Percent Auto 81.7 % (50-75); Platelet Count 246 X10^3/uL (150-400); Red Blood Cell Count 3.53 X10^6/uL (4.0-5.2); White Blood Cell Count 16.9 X10^3/uL (4.5-11.0)
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
[2019-06-28 17:18] LABS: Alanine Aminotransferase 22 IU/L (9-52); Albumin 4.1 g/dL (3.5-5.0); Albumin Globulin Ratio 1.5 (1.0-2.8); Alkaline Phosphatase 46 U/L (38-126); Aspartate Aminotransferase 18 IU/L (14-36); Bilirubin Total 0.6 mg/dL (0.2-1.3); Blood Urea Nitrogen 7 mg/dL (7-17); Calcium 8.8 mg/dL (8.4-10.2); Carbon Dioxide 21 mmol/L (22-32); Chloride 103 mmol/L (98-107); Estimated Glomerular Filt Rate > 60.0 mL/min (>60); Globulin 2.7 g/dL (1.7-4.1); Glucose 80 mg/dL (70-100); HEMOLYSIS < 15 (0-50); Lipase 115 U/L (23-300); Potassium 3.4 mmol/L (3.4-5.1); Sodium 136 mmol/L (137-145); Total Protein 6.8 g/dL (6.3-8.2)
[2019-06-28 17:30] VITALS: BP 92/56; PULSE 83; RESP 23; O2SAT 98
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
[2019-06-28 17:58] LABS: HCG Quantitative /Beta subunit 69423 mIU/mL
[2019-06-28 18:00] VITALS: BP 95/56; PULSE 94; RESP 19; O2SAT 98
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
== END 2019-06-28 19:07 | disposition home or self-care (01) ==
PROVIDERS: Emergency Provider Emergency Medicine; PCP Family Medicine
DX: O26.91 Pregnancy related conditions, unspecified, first trimester (principal); S50.10XA Contusion of unspecified forearm, initial encounter; Y04.2XXA Assault by strike against or bumped into by another person, initial encounter; Z3A.10 10 weeks gestation of pregnancy
CPT/HCPCS: 36591; 73130; 76801; 80053; 81003; 81015; 81025; 83690; 84702; 85025; 86900; 86901; 87086; 93041; 96360; 96361; 99284

== ENCOUNTER → 2019-07-01 11:47 | Outpatient (CLI) | payer OTHER, MEDICAID, SELFPAY ==
[2019-07-01 17:27] LABS: Urine N gonorrhoeae NOT DETECTED
[2019-07-01 19:50] LABS: Urine Chlamydia NOT DETECTED
== END ==
PROVIDERS: PCP Family Medicine; Visit Provider Obstetrics & Gynecology
DX: Z34.81 Encounter for supervision of other normal pregnancy, first trimester (principal)
CPT/HCPCS: 87491; 87591

== ENCOUNTER → 2019-07-01 12:05 | Outpatient (CLI) | payer OTHER, MEDICAID, SELFPAY ==
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
== END ==
PROVIDERS: PCP Family Medicine; Visit Provider Family Medicine
DX: T14.8XXA Other injury of unspecified body region, initial encounter (principal); M24.812 Other specific joint derangements of left shoulder, not elsewhere classified
CPT/HCPCS: 73030; 73110

== ENCOUNTER 2019-08-07 10:21 | Emergency (ER) | payer OTHER, MEDICAID, SELFPAY ==
[2019-08-07 10:38] VITALS: BP 105/59; PULSE 87; RESP 18; TEMP 36.6; O2SAT 100
--- NOTE | 2019-08-07 10:45 | DI.US.S_ITS ---
PROCEDURE: US OB LIMITED INDICATIONS: PAIN OUTSIDE/PRIOR DATING DATA: Last menstrual period (LMP): 04/11/19. LMP-based estimated date of delivery (PORSCHE): 01/16/20. First dating scan (date and location): 06/06/19. Estimated date of delivery (PORSCHE) from first dating scan: 01/22/20. TECHNIQUE: Real-time scanning was performed of the fetus, with image documentation. Endovaginal scanning: Not performed COMPARISON: [facility], [facility], 11/22/2014, 14:41. FINDINGS: A single living intrauterine gestation is present. Presentation: Breech Placenta: Placental position is anterior, without placenta previa. However, the placental edge comes in close proximity to the internal os. No evidence for placental abruption. heart rate: 145 beats per minute. Maternal cervical canal: 3.4 cm long. Normal lower limit is 2.5 cm. Estimated gestational age from initial scan: 16 weeks and 0 days. 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 IMPRESSION: Single living intrauterine gestation. No placenta previa; however, the lower placental edge measures a short distance from the internal cervical os. No placental abruption identified. Recommend continued clinical and imaging surveillance. This area can be reevaluated on followup routine second trimester anatomic screening survey. Dictated by: Seferino Rutherford M.D. on 08/07/2019 at 10:27 Approved by: Seferino Rutherford M.D. on 08/07/2019 at 10:34
[2019-08-07 11:44] LABS: Amorphous Sediment Urine 2+; Bacteria Urine Many (>30); Culture Indicated Urine Cult Not Indicated; RBC Urine 0-1/HPF (0-5/HPF); Squamous Epithelial Cell Urine 5-10 /HPF (0-5/HPF); WBC Urine 1-5/HPF (0-5/HPF)
[2019-08-07] MEDS: ACETAMINOPHEN 325 MG TABLET 650 MG PO (12:06)
[2019-08-07 12:47] VITALS: BP 106/78; PULSE 76; RESP 16; O2SAT 100
--- NOTE | 2019-08-07 20:30 | ED.ABDPAIN ---
HPI - Abdominal Pain <MOSHE Trinidad - Last Filed: 08/08/19 01:23> General Chief Complaint: Abdominal Pain Stated Complaint: Stomach and Back pain Time Seen by Provider: 08/07/19 11:25 Source: patient Mode of arrival: ambulatory Limitations: no limitations History of Present Illness HPI narrative: This is a 29-year-old female, former smoker, came in with low bilateral abdominal and back pain for weeks but today she felt increase in severity of pain. The patient was told she has hemorrhagic gestational sac per Dr. Ibrahim per US test and is being monitored during last OB visit. She is 16 week EGA and is AB1 with LMP 04/11/19. She has associated symptoms such as vomiting and nausea which started today. She reports pain is constant she sharp and cramping. She reports she had diarrhea for 1 week in previous week but now she feels constipated and has been taking increased fiber and water intake for this. Patient does not want to take medications including Tylenol but with this pain she had to take 2 tabs of Tylenol once a day. Patient is concerned since she had deliver her 1st child prematurely at 27 weeks by due to breech presentation. She denies urinary symptoms. Related Data Home Medications Medication Instructions Recorded Confirmed prenat.vits,tennille,ofq-btom-kpnkv 1 tab PO DAILY 06/06/19 07/26/19 Previous Rx's Medication Instructions Recorded hydroxyprogest(PF)(preg presv) 275 275 mg SUBCUT QWEEK #4.4 ml 06/24/19 mg/1.1 mL subcut auto-inject ondansetron HCl 4 mg tablet 4 mg PO BID-TID PRN #20 tab 06/24/19 arm brace #1 each 07/01/19 arm brace #1 each 07/05/19 cephalexin [Keflex] 500 mg PO BID 3 Days #6 cap 08/07/19 hydroxyzine HCl 25 mg tablet 25 mg PO Q6-8H PRN #30 tab 08/09/19 venlafaxine 37.5 mg See Rx Instructions PO DAILY #60 08/09/19 tablet,extended release 24 hr tab Allergies Allergy/AdvReac Type Severity Reaction Status Date / Time amoxicillin Allergy Severe Hives Verified 08/07/19 10:44 Penicillins Allergy Severe UNK Verified 08/07/19 10:44 Review of Systems <MOSHE Trinidad - Last Filed: 08/08/19 01:23> Review of Systems ROS Unobtainable: All systems reviewed & are unremarkable except as noted in HPI and below PFSH <MOSHE Trinidad - Last Filed: 08/08/19 01:23> Medical History Acne (Chronic) Anxiety (Chronic) Depression (Chronic) Foot pain (Chronic 2006) Surgical History Anesthesia (Resolved) History of surgery (Resolved 1999) History of third molar tooth extraction (Resolved ~2008) Status post left foot surgery (Resolved ~2009) Family History Grandfather Heart attack Brother No problems noted. Brother No problems noted. Father No problems noted. Grandmother No problems noted. Grandfather No problems noted. Grandmother No problems noted. Mother No problems noted. Social History marital status: unmarried,single number of children: 1 caregiver/support person: No housing: apartment pets and animals: No education level: college occupational status: employed current occupational exposures/hazards: No seatbelt use: always helmet use: Yes water heater temp set < 120 deg: Yes working smoke detector in home: Yes fire extinguisher in home: Yes carbon monox detector in home: Yes firearms in home: No do you feel safe at home: Yes Smoking Status: Former smoker substance use type: does not use during the past year weight has: increased > 10 lbs well-balanced diet: about half the time daily servings fruits/ve-4 caffeine: Yes eating out: 1-3 times/week Type(s) of exercise: walking frequency: 3-4 times per week duration: decline to answer Family History Grandfather Heart attack Brother No problems noted. Brother No problems noted. Father No problems noted. Grandmother No problems noted. Grandfather No problems noted. Grandmother No problems noted. Mother No problems noted. Social History marital status: unmarried,single number of children: 1 caregiver/support person: No housing: apartment pets and animals: No education level: college occupational status: employed current occupational exposures/hazards: No seatbelt use: always helmet use: Yes water heater temp set < 120 deg: Yes working smoke detector in home: Yes fire extinguisher in home: Yes carbon monox detector in home: Yes firearms in home: No do you feel safe at home: Yes Smoking Status: Former smoker substance use type: does not use during the past year weight has: increased > 10 lbs well-balanced diet: about half the time daily servings fruits/ve-4 caffeine: Yes eating out: 1-3 times/week Type(s) of exercise: walking frequency: 3-4 times per week duration: decline to answer Exam <MOSHE Trinidad - Last Filed: 08/08/19 01:23> Narrative Exam Narrative: GEN: Alert, oriented x 3, well appearing and nourished, and in no acute distress. Head: Normal cephalic, atraumatic. No scalp or temporal tenderness, palpable mass or rash. EYES: Pupils are equal, round, and reactive to light and accommodation. Extraocular muscles are intact bilaterally. There is no subconjunctival hemorrhage, exudate and sclera non-icteric. ENT: Bilateral auditory canals and tympanic membranes clear. Hearing grossly intact. Nose without bleeding, purulent discharge or deviation. Facial sinuses nontender to palpate. Mucous membrane moist, no mucosal lesion. Throat without erythema, tonsillar hypertrophy or exudate. Uvula in midline, airway patent. Neck: Trachea in midline. No JVD, non-tender without lymphadenopathy. No masses or thyroid megaly. Supple, non-tender and no meningeal signs. CARDIAC: Normal regular rate and rhythm without murmurs, gallops, or rubs. No chest wall tenderness. No peripheral edema, cyanosis or pallor. Capillary refill is less than 2 seconds. RESPIRATORY: Lungs are cleat to auscultate bilaterally. No cough, wheezes, rales, or rhonchi. No stridor, respiratory distress, increase work of breathing, or accessary muscle used. ABD: Tender to palpate in left lower quadrant. Abdomen soft and non-distended. No guarding or rebound tenderness to palpate. Bowel sounds are normal in all 4 quadrants. There is no palpable masses or organomegaly. EXT: Full painless ROM of all extremities with no loss of sensation, strength, effusion or edema. SKIN: Warm, dry, normal color for patient. No erythema, lesions or rash over visible areas. BACK: Nontender without deformity or crepitance. No flank tenderness. NEUROLOGICAL: Alert and oriented to place, time and person. Sensation and motor function intact bilaterally. No facial droops, dysphasia. PSYCHIATRIC: Good judgement and reason, without hallucinations, abnormal affect or abnormal behaviors during the examination. Patient is not suicidal. Initial Vital Signs Initial Vital Signs: Vital Signs Temperature 97.9 F 08/07/19 10:38 Pulse Rate 87 08/07/19 10:38 Respiratory Rate 18 08/07/19 10:38 Blood Pressure 105/59 L 08/07/19 10:38 Pulse Oximetry 100 08/07/19 10:38 <aCssie Slater DO - Last Filed: 08/09/19 18:34> Initial Vital Signs Initial Vital Signs: Vital Signs Temperature 97.9 F 08/07/19 10:38 Pulse Rate 87 08/07/19 10:38 Respiratory Rate 18 08/07/19 10:38 Blood Pressure 105/59 L 08/07/19 10:38 Pulse Oximetry 100 08/07/19 10:38 Scores <MOSHE Trinidad - Last Filed: 08/08/19 01:23> GCS Lance coma scale eye opening: Spontaneous Lance coma scale verbal response: Orientated Lance coma scale motor response: Obey commands [place] coma scale total score: 15 Course <MOSHE Trinidad - Last Filed: 08/08/19 01:23> Orders Ordered: Discontinued Medications Acetaminophen (Tylenol) 650 mg PO NOW ONE Stop: 08/07/19 11:44 Last Admin: 08/07/19 12:06 Dose: 650 mg Documented by: GARRETT Vital Signs Vital signs: Vital Signs - 8 hr 08/07/19 12:47 Pulse Rate 76 Respiratory Rate 16 Blood Pressure 106/78 Pulse Oximetry 100 <Cassie Slater DO - Last Filed: 08/09/19 18:34> Orders Ordered: Discontinued Medications Acetaminophen (Tylenol) 650 mg PO NOW ONE Stop: 08/07/19 11:44 Last Admin: 08/07/19 12:06 Dose: 650 mg Documented by: GARRETT Vital Signs Vital signs: Vital Signs - 8 hr 08/07/19 12:47 Pulse Rate 76 Respiratory Rate 16 Blood Pressure 106/78 Pulse Oximetry 100 MDM - Abdominal Pain <Avila Gibbs-DavidMOSHE rivera - Last Filed: 08/08/19 01:23> Differential Diagnosis Differential diagnosis: Likely abdominal pain and other (UTI, placenta previa, placenta abruptio) Medical Records Attestation: I reviewed the patient's medical records. Lab Data Labs: Lab Results 08/07/19 Range/Units 11:10 Urine RBC 0-1/hpf (0-5/HPF) Urine WBC 1-5/hpf (0-5/HPF) Ur Squamous Epith Cells 5-10 /hpf H (0-5/HPF) Amorphous Sediment 2+ Urine Bacteria Many (>30) H (None) Ur Culture Indicated? Cult not indicated Point of care testing: Point of Care Testing Test Results Positive Urine Dip Bedside Urine Glucose Negative Bedside Urine Bilirubin - Negative Bedside Urine Ketone - Negative Urine Specific [place] 1.010 Bedside Urine Occult Blood - Negative Bedside Urine pH 8.0 Bedside Urine Protein +/- 15 Bedside Urine Urobilinogen - Negative Bedside Urine Nitrite - Negative Bedside Urine Leukocytes +/- 15 Esterase Imaging Data US-OB : Radiologist's impression: [address] [address] Ultrasound Report Signed Patient: Chap[place]ito Johnson [facility]#: [id number] : 1990Acct:[id number] Age/Sex: 29 / FDate of Service: 08/07/19 Loc: ED Accession Number: [id number] Procedure: US OB limited Ordering Provider: Cassie Slater D.O. PROCEDURE: US OB LIMITED INDICATIONS: PAIN OUTSIDE/PRIOR DATING DATA: Last menstrual period (LMP): 04/11/19. LMP-based estimated date of delivery (PORSCHE): 01/16/20. First dating scan (date and location): 06/06/19. Estimated date of delivery (PORSCHE) from first dating scan: 01/22/20. TECHNIQUE: Real-time scanning was performed of the fetus, with image documentation. Endovaginal scanning: Not performed COMPARISON: [facility], [facility] [facility], 11/22/2014, 14:41. FINDINGS: A single living intrauterine gestation is present. Presentation: Breech Placenta: Placental position is anterior, without placenta previa. However, the placental edge comes in close proximity to the internal os. No evidence for placental abruption. heart rate: 145 beats per minute. Maternal cervical canal: 3.4 cm long. Normal lower limit is 2.5 cm. Estimated gestational age from initial scan: 16 weeks and 0 days. 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 IMPRESSION: Single living intrauterine gestation. No placenta previa; however, the lower placental edge measures a short distance from the internal cervical os. No placental abruption identified. Recommend continued clinical and imaging surveillance. This area can be reevaluated on followup routine second trimester anatomic screening survey. Dictated by: Seferino Rutherford M.D. on 08/07/2019 at 10:27 Approved by: Seferino Rutherford M.D. on 08/07/2019 at 10:34 MDM Narrative Medical decision making narrative: This patient presents to ED with low abdominal pain and L low back pain which has been constant since yesterday and she had nausea and vomiting today. Patient denies fever and chills stable in ED and afebrile. Urine test shows +/-15 urine leukocytes esterase without nitrite. Micro test shows many bacteria with squamous epithelial cell. Although it was not indicated for culture, urine culture has been ordered and waiting for C&S test. OB ultrasound was ordered and shows no acute findings such as, placenta abruptio and shows single living intrauterine gestation with heart rate of 145 per minute. Patient did not have any vaginal bleeding or unusual discharge. Tylenol prior DC to home. Patient was prescribed with Keflex 500 mg b.i.d. dose for 3 days for possible UTI prior waiting for the culture test result. Patient advised to take [id number] Tylenol which is safe for during as needed for discomfort. Patient advised to follow up with Dr. Ibrahim by calling her office next week and return precautions were discussed with patient. Patient agrees with treatment plan and no further questions were expressed at this time. <Cassie Slater, DO - Last Filed: 08/09/19 18:34> Lab Data Labs: Lab Results 08/07/19 Range/Units 11:10 Urine RBC 0-1/hpf (0-5/HPF) Urine WBC 1-5/hpf (0-5/HPF) Ur Squamous Epith Cells 5-10 /hpf H (0-5/HPF) Amorphous Sediment 2+ Urine Bacteria Many (>30) H (None) Ur Culture Indicated? Cult not indicated Point of care testing: Point of Care Testing Test Results Positive Urine Dip Bedside Urine Glucose Negative Bedside Urine Bilirubin - Negative Bedside Urine Ketone - Negative Urine Specific [place] 1.010 Bedside Urine Occult Blood - Negative Bedside Urine pH 8.0 Bedside Urine Protein +/- 15 Bedside Urine Urobilinogen - Negative Bedside Urine Nitrite - Negative Bedside Urine Leukocytes +/- 15 Esterase Discharge Plan Departure Patient Disposition: Home Clinical Impression: Abdominal pain during in second trimester UTI (urinary tract infection) Qualifiers: Urinary tract infection type: site unspecified Hematuria presence: without hematuria Qualified Code(s): N39.0 - Urinary tract infection, site not specified Discharge Date/Time: 08/07/19 12:48 Instructions: DI for Urinary Tract Infection (UTI), DI for Abdominal Pain -- Early Activity Restrictions/Additional Instructions: You have been diagnosed with [abdominal pain during in 2nd trimester. Ultrasound test today shows no placenta previa or abruptio and 1 single living in intra urine with normal heart tone. Your urine test does not show obvious infection at this time but is is being cultured. You will receive a phone call if you need a treatment with different antibiotic medication from ED next 2-4 days]. What to do: *Take your medications as directed. You take aopf-izn-ccvfqwh Tylenol as needed for discomfort up to 4 times a day extra strength 2 tabs for discomfort. *Follow up with your primary care provider/Dr. Ibrahim in 2-3 days, call for an appointment. Let them know you were seen in the ED and that we asked you to be seen in follow up. *Return to ED if you have any new, worsening, or concerning symptoms, such as [vaginal bleeding, severe abdominal pain, chest pain, breathing difficulty, unable to tolerate fluids, or any acute concerns]. Prescriptions: New cephalexin [Keflex] 500 mg capsule 500 mg PO BID 3 Days Qty: 6 RF: 0 No Action (DME) Wrist Brace misc See Dose Instructions .ROUTE .MEDSUPPLY Qty: 1 RF: 0 venlafaxine 37.5 mg tablet extended release 24hr See Rx Instructions PO DAILY Qty: 60 RF: 1 (DME) Wrist Brace misc See Dose Instructions .ROUTE .MEDSUPPLY Qty: 1 RF: 0 hydroxyzine HCl 25 mg tablet 25 mg PO Q6-8H PRN (Reason: severe anxiety) Qty: 30 RF: 0 Da[place]hin (PF) 275 mg/1.1 mL auto-injector 275 mg SUBCUT QWEEK Qty: 4.4 RF: 7 ondansetron HCl [Zofran] 4 mg tablet 4 mg PO BID-TID PRN (Reason: nausea and vomiting) Qty: 20 RF: 2 prenat.vits,tennille,ykq-doio-gjiul tablet 1 tab PO DAILY RF: 0 Referrals: Deborah Ibrahim MD [Physician] - Criselda Griffin MD [Primary Care Provider] -
== END 2019-08-07 12:48 | disposition home or self-care (01) ==
PROVIDERS: Emergency Medicine; Emergency Provider Nurse Practitioner Family; PCP Family Medicine
DX: O26.892 Other specified pregnancy related conditions, second trimester (principal); R10.9 Unspecified abdominal pain; N39.0 Urinary tract infection, site not specified; Z3A.16 16 weeks gestation of pregnancy
CPT/HCPCS: 76815; 81003; 81015; 81025; 87077; 87086; 99282; 99283

== ENCOUNTER 2019-08-10 17:00 | Emergency (ER) | payer OTHER, MEDICAID, SELFPAY ==
[2019-08-10 17:02] VITALS: BP 96/59; PULSE 91; RESP 20; TEMP 36.9; O2SAT 98
--- NOTE | 2019-08-10 17:11 | DI.RAD.S_ITS ---
PROCEDURE: XR CHEST 2V INDICATIONS: Chest pain and shortness of breath TECHNIQUE: 2 views of the chest were acquired. COMPARISON: None. FINDINGS: Surgical changes and devices: None. Lungs and pleura: Lungs are clear. No pleural effusions or pneumothorax. Mediastinum: Mediastinal contours are normal. Heart size is normal. Bones and chest wall: No suspicious bony abnormalities. Soft tissues appear unremarkable. IMPRESSION: No acute cardiopulmonary process is seen. Dictated by: Arron Kearney M.D. on 08/10/2019 at 17:41 Approved by: Arron Kearney M.D. on 08/10/2019 at 17:41
[2019-08-10 17:40] LABS: Add Manual Diff / Slide Review NO; Basophils Absolute Auto 100 /uL (0-100); Basophils Percent Auto 0.4 % (0-2); Eosinophils Absolute Auto 0 /uL (0-450); Eosinophils Percent Auto 0.3 % (2-4); Hematocrit 34.2 % (36-46); Hemoglobin 11.6 g/dL (12.0-16.0); Lymphocytes Absolute Auto 1600 /uL (1100-4500); Lymphocytes Percent Auto 11.6 % (25-40); Monocytes Absolute Auto 400 /uL (0-900); Monocytes Percent Auto 3.2 % (3-14); Neutrophils Absolute Auto 11300 /uL (1500-7000); Neutrophils Percent Auto 84.5 % (50-75); Platelet Count 241 X10^3/uL (150-400); Red Blood Cell Count 3.42 X10^6/uL (4.0-5.2); Red Cell Distribution Width 13.4 % (11.6-14.8); White Blood Cell Count 13.3 X10^3/uL (4.5-11.0)
[2019-08-10 17:53] LABS: Albumin 3.6 g/dL (3.5-5.0); Albumin Globulin Ratio 1.3 (1.0-2.8); Alkaline Phosphatase 41 U/L (38-126); Aspartate Aminotransferase 16 IU/L (14-36); BUN Creatinine Ratio 17.5 (6-22); Bilirubin Total 0.4 mg/dL (0.2-1.3); Blood Urea Nitrogen 7 mg/dL (7-17); Calcium 8.7 mg/dL (8.4-10.2); Carbon Dioxide 21 mmol/L (22-32); Creatine Kinase 47 U/L (30-135); Estimated Glomerular Filt Rate > 60.0 mL/min (>60); Globulin 2.7 g/dL (1.7-4.1); Glucose 114 mg/dL (70-100); Total Protein 6.3 g/dL (6.3-8.2)
[2019-08-10 17:59] LABS: Chloride 106 mmol/L (98-107); HEMOLYSIS < 15 (0-50); Potassium 3.9 mmol/L (3.4-5.1); Sodium 136 mmol/L (137-145)
[2019-08-10 18:02] LABS: Alanine Aminotransferase < 6 IU/L (9-52)
[2019-08-10 18:05] LABS: Troponin I < 0.012 ng/mL (0.01-0.034)
[2019-08-10 18:30] VITALS: BP 110/78; PULSE 72; RESP 18; O2SAT 98
--- NOTE | 2019-08-10 18:43 | ED.CHESTPAIN ---
HPI - Chest Pain General Chief Complaint: Chest Pain Stated Complaint: chest pain, eye pain s/p allergic rxn earlier Time Seen by Provider: 08/10/19 18:43 Source: patient Mode of arrival: ambulatory Limitations: no limitations History of Present Illness HPI narrative: The patient is a 29-year-old female currently 4 months who took Bentyl fact seen today for the 1st time. She took it this morning she had changes in her vision she felt like she was breathing fast. She was seen evaluated Lisa Gray who told her it was anxiety. She called her PCP office all few hours later because she was having some chest discomfort and she came here for further evaluation. She still has some mild chest discomfort but overall is feeling much better. She feels like she had a reaction to the venalfaxine. She took hydroxyzine for the 1st time last evening for anxiety she did not have any sort of reaction to that. At no time did she have any lip swelling or tongue swelling difficulty breathing rash or hives. She did not notice her chest pain and till all of her other symptoms have subsided. Her chest pain is nonradiating. She denies any nausea or diaphoresis. MD complaint: chest pain Pain location: substernal Severity: mild Pain radiation: none Relieving factors: nothing Exacerbating factors: nothing Related Data Home Medications Medication Instructions Recorded Confirmed prenat.vits,tennille,mck-[id number] 1 tab PO DAILY 06/06/19 07/26/19 Previous Rx's Medication Instructions Recorded hydroxyprogest(PF)(preg presv) 275 275 mg SUBCUT QWEEK #4.4 ml 06/24/19 mg/1.1 mL subcut auto-inject ondansetron HCl 4 mg tablet 4 mg PO BID-TID PRN #20 tab 06/24/19 arm brace #1 each 07/01/19 arm brace #1 each 07/05/19 cephalexin [Keflex] 500 mg PO BID 3 Days #6 cap 08/07/19 hydroxyzine HCl 25 mg tablet 25 mg PO Q6-8H PRN #30 tab 08/09/19 venlafaxine 37.5 mg See Rx Instructions PO DAILY #60 08/09/19 tablet,extended release 24 hr tab Allergies Allergy/AdvReac Type Severity Reaction Status Date / Time amoxicillin Allergy Severe Hives Verified 08/07/19 10:44 Penicillins Allergy Severe UNK Verified 08/07/19 10:44 Review of Systems Review of Systems Narrative: GENERAL: Denies chills, fatigue, malaise, fever, sweats, travel HEENT: Denies sinus pain, ear pain, sore throat, difficulty swallowing, neck pain RESPIRATORY: Denies dyspnea, cough, wheezing, hemoptysis, sputum. CARDIOVASCULAR: See HPI GASTROINTESTINAL: Denies nausea, vomiting, abdominal pain, diarrhea, constipation, melena. : Denies dysuria, frequency, incontinence, hematuria, urinary retention, flank pain. MUSCULOSKELETAL: Denies weakness, joint pain, or bony pain SKIN: No rash, no erythema, no pruritus NEUROLOGIC: Denies weakness, dizziness, headache, numbness, change in speech, confusion PSYCHIATRIC: No concerning psychosocial issues. 12 point review of systems is negative except for those stated above and HPI [facility] Medical History Acne (Chronic) Anxiety (Chronic) Depression (Chronic) Foot pain (Chronic 2006) Surgical History Anesthesia (Resolved) History of surgery (Resolved 1999) History of third molar tooth extraction (Resolved ~2008) Status post left foot surgery (Resolved ~2009) Family History Grandfather Heart attack Brother No problems noted. Brother No problems noted. Father No problems noted. Grandmother No problems noted. Grandfather No problems noted. Grandmother No problems noted. Mother No problems noted. Social History marital status: unmarried,single number of children: 1 caregiver/support person: No housing: apartment pets and animals: No education level: college occupational status: employed current occupational exposures/hazards: No seatbelt use: always helmet use: Yes water heater temp set < 120 deg: Yes working smoke detector in home: Yes fire extinguisher in home: Yes carbon monox detector in home: Yes firearms in home: No do you feel safe at home: Yes Smoking Status: Former smoker substance use type: does not use during the past year weight has: increased > 10 lbs well-balanced diet: about half the time daily servings fruits/ve-4 caffeine: Yes eating out: 1-3 times/week Type(s) of exercise: walking frequency: 3-4 times per week duration: decline to answer Family History Grandfather Heart attack Brother No problems noted. Brother No problems noted. Father No problems noted. Grandmother No problems noted. Grandfather No problems noted. Grandmother No problems noted. Mother No problems noted. Social History marital status: unmarried,single number of children: 1 caregiver/support person: No housing: apartment pets and animals: No education level: college occupational status: employed current occupational exposures/hazards: No seatbelt use: always helmet use: Yes water heater temp set < 120 deg: Yes working smoke detector in home: Yes fire extinguisher in home: Yes carbon monox detector in home: Yes firearms in home: No do you feel safe at home: Yes Smoking Status: Former smoker substance use type: does not use during the past year weight has: increased > 10 lbs well-balanced diet: about half the time daily servings fruits/ve-4 caffeine: Yes eating out: 1-3 times/week Type(s) of exercise: walking frequency: 3-4 times per week duration: decline to answer Exam Initial Vital Signs Initial Vital Signs: Vital Signs Temperature 98.4 F 08/10/19 17:02 Pulse Rate 91 H 08/10/19 17:02 Respiratory Rate 20 08/10/19 17:02 Blood Pressure 96/59 L 08/10/19 17:02 Pulse Oximetry 98 08/10/19 17:02 GENERAL: Well-appearing, well-nourished and in no acute distress. HEENT: Head atraumatic,EOMI, pupils reactive, face symmetric, moist mucous membranes CARDIOVASCULAR: Regular rate and rhythm without murmurs, rubs or gallops. RESPIRATORY: Breath sounds equal bilaterally, no wheezes rales or rhonchi. ABDOMEN: Soft, nontender. Normoactive bowel sounds all 4 quadrants. No guarding or rebound. EXTREMITIES: Normal range of motion, no clubbing or edema. Neurovascularly intact NEUROLOGICAL: Alert and oriented x4.Normal gait and speech. Cranial nerves II through XII grossly intact. SKIN: Warm, dry, no laceration, no petechiae, no rashes or lesions. Scores HEART Score Heart Score history: Slightly Suspicious Heart Score EKG: Normal Heart Score Age: < 45 years old Heart Score risk factors: No known risk factors Heart Score troponin: < or = to normal limit Heart Score Total: 0 Course Orders Ordered: ED Orders 08/10/19 17:11 Chest [XR chest 2V] Stat EKG-12 Lead Stat 08/10/19 17:24 Complete Blood Count AUTO DIFF Stat Comprehensive Metabolic Panel Stat Troponin & CK Cardiac Panel Stat Vital Signs Vital signs: Vital Signs - 8 hr 08/10/19 18:30 Pulse Rate 72 Respiratory Rate 18 Blood Pressure [Left Arm] 110/78 Pulse Oximetry 98 MDM - Chest Pain Lab Data Attestation: I reviewed the patient's lab results. Result diagrams: 08/10/19 17:24 08/10/19 17:24 Labs: Lab Results 08/10/19 08/10/19 Range/Units 17:24 17:24 WBC 13.3 H (4.5-11.0) X10^3/uL RBC 3.42 L (4.0-5.2) X10^6/uL Hgb 11.6 L (12.0-16.0) g/dL Hct 34.2 L (36-46) % MCV 100.0 (80-100) fL MCH 34.0 (26-34) PG MCHC 34.0 (30-36) % RDW 13.4 (11.6-14.8) % Plt Count 241 (150-400) X10^3/uL Neut % (Auto) 84.5 H (50-75) % Lymph % (Auto) 11.6 L (25-40) % [place] % (Auto) 3.2 (3-14) % Eos % (Auto) 0.3 L (2-4) % Baso % (Auto) 0.4 (0-2) % Neut # (Auto) 70444 H (4375-4936) /uL Lymph # (Auto) 1600 (3547-8230) /uL [place] # (Auto) 400 (0-900) /uL Eos # (Auto) 0 (0-450) /uL Baso # (Auto) 100 (0-100) /uL Sodium 136 L (137-145) mmol/L Potassium 3.9 (3.4-5.1) mmol/L Chloride 106 (98-107) mmol/L Carbon Dioxide 21 L (22-32) mmol/L BUN 7 (7-17) mg/dL Creatinine 0.40 L (0.52-1.04) mg/dL Estimated GFR > 60.0 (>60) mL/min BUN/Creatinine Ratio 17.5 (6-22) Glucose 114 H (70-100) mg/dL Calcium 8.7 (8.4-10.2) mg/dL Total Bilirubin 0.4 (0.2-1.3) mg/dL AST 16 (14-36) IU/L ALT < 6 L (9-52) IU/L Alkaline Phosphatase 41 (38-126) U/L Total Creatine Kinase 47 (30-135) U/L CK-MB (CK-2) TNP CK-MB (CK-2) Rel Index TNP Troponin I < 0.012 (0.01-0.034) ng/mL Total Protein 6.3 (6.3-8.2) g/dL Albumin 3.6 (3.5-5.0) g/dL Globulin 2.7 (1.7-4.1) g/dL Albumin/Globulin Ratio 1.3 (1.0-2.8) Imaging Data Chest x-ray: Radiologist's impression: PROCEDURE: XR CHEST 2V INDICATIONS: Chest pain and shortness of breath TECHNIQUE: 2 views of the chest were acquired. COMPARISON: None. FINDINGS: Surgical changes and devices: None. Lungs and pleura: Lungs are clear. No pleural effusions or pneumothorax. Mediastinum: Mediastinal contours are normal. Heart size is normal. Bones and chest wall: No suspicious bony abnormalities. Soft tissues appear unremarkable. IMPRESSION: No acute cardiopulmonary process is seen. Dictated by: Arron Kearney M.D. on 08/10/2019 at 17:41 ECG Data Attestation: I personally reviewed and interpreted this ECG as follows: Prior ECG tracings: not available for review Interpretation: Normal sinus rhythm rate 73 p.r. interval [address] changes no T-wave inversions MDM Narrative Medical decision making narrative: The patient overall feeling much better. This likely reaction to medication. She is no longer going to take this medication. I recommend she discuss this with her PCP Discharge Plan Departure Patient Disposition: Home Clinical Impression: Atypical chest pain Adverse reaction to antidepressant drug Qualifiers: Encounter type: initial encounter Qualified Code(s): T43.205A - Adverse effect of unspecified antidepressants, initial encounter Discharge Date/Time: 08/10/19 19:06 Instructions: DI for Atypical Chest Pain Activity Restrictions/Additional Instructions: *You have been diagnosed with atypical chest pain and likely medication reaction. *What to do: Recommend you do not take that medication any longer. Please discuss with her PCP in regards to other medications *Continue to take medications as directed *Follow up with your primary care provider in 2-3 days *Return to ER if you should have increasing chest pain shortness of breath dizziness lightheadedness visual change or any new, worsening or concerning symptoms Prescriptions: No Action (DME) Wrist Brace misc See Dose Instructions .ROUTE .MEDSUPPLY Qty: 1 RF: 0 venlafaxine 37.5 mg tablet extended release 24hr See Rx Instructions PO DAILY Qty: 60 RF: 1 (DME) Wrist Brace misc See Dose Instructions .ROUTE .MEDSUPPLY Qty: 1 RF: 0 hydroxyzine HCl 25 mg tablet 25 mg PO Q6-8H PRN (Reason: severe anxiety) Qty: 30 RF: 0 [place] (PF) 275 mg/1.1 mL auto-injector 275 mg SUBCUT QWEEK Qty: 4.4 RF: 7 ondansetron HCl [Zofran] 4 mg tablet 4 mg PO BID-TID PRN (Reason: nausea and vomiting) Qty: 20 RF: 2 prenat.vits,tennille,[id number]-[id number]-[id number] tablet 1 tab PO DAILY RF: 0 cephalexin [Keflex] 500 mg capsule 500 mg PO BID 3 Days Qty: 6 RF: 0 Referrals: Criselda Griffin MD [Primary Care Provider] -
== END 2019-08-10 19:06 | disposition home or self-care (01) ==
PROVIDERS: Emergency Medicine; Emergency Provider Emergency Medicine; Family Provider Family Medicine; PCP Family Medicine
DX: O26.899 Other specified pregnancy related conditions, unspecified trimester (principal); R07.89 Other chest pain; T43.205A Adverse effect of unspecified antidepressants, initial encounter
CPT/HCPCS: 36415; 71046; 80053; 82550; 84484; 85025; 93005; 99282; 99285

== ENCOUNTER → 2019-08-22 14:57 | Outpatient (CLI) | payer OTHER, MEDICAID, SELFPAY ==
[2019-08-25 21:59] LABS: AFP, Serum 23.5 ng/mL; Brief History NTD NG; Calc Gestational Age 18.1; Cigarette Smoker NO; Donated Egg N; Donor Egg Age NOT GIVEN; Estriol, Free 1.23 ng/mL; Inhibin A, Dimeric 251 pg/mL; Maternal Weight 145 lbs; Number of Fetuses 1; Previous Pregnancy Down Syndro N; hCG, MoM 0.61; hCG, Serum 14.7 IU/mL
== END ==
PROVIDERS: Family Provider Family Medicine; PCP Family Medicine; Visit Provider Obstetrics & Gynecology
DX: Z34.82 Encounter for supervision of other normal pregnancy, second trimester (principal); Z3A.18 18 weeks gestation of pregnancy
CPT/HCPCS: 36415; 82105; 82677; 84702; 86336

== ENCOUNTER → 2019-09-05 13:18 | Outpatient (CLI) | payer OTHER, MEDICAID, SELFPAY ==
--- NOTE | 2019-09-05 13:20 | DI.US.S_ITS ---
PROCEDURE: US OB >= 14 WEEKS FETUS INDICATIONS: ANATOMY OUTSIDE/PRIOR DATING DATA: Last menstrual period (LMP): 04/11/2019. LMP-based estimated date of delivery (PORSCHE): 01/16/2020. First dating scan (date and location): 06/06/2019. Estimated date of delivery (PORSCHE) from first dating scan: 01/31/2019. TECHNIQUE: Real-time scanning was performed of the fetus, with image documentation and biometric measurements. COMPARISON: [facility], , OB >= 14 WEEKS FETUS, 08/22/2019, 14:43. FINDINGS: General: A single living intrauterine gestation is present. Presentation: Breech. Placenta: Placental position is anterior. Marginal. Amniotic fluid index: 14.1 cm, normal range is 5-24 cm. heart rate: 160 beats per minute. Maternal cervical canal: 5.8 cm long. Normal lower limit is 2.5 cm. biometrics: Biparietal diameter: 4.9 cm. 20 weeks 6/7 days. Head circumference: 18.5 cm. 20 weeks 6/7 days. Abdominal circumference: 15.1 cm. 20 weeks 2/7 days. Femur length: 3.2 cm. 19 weeks 6/7 days. Estimated gestational age from initial scan: 20 weeks 1/7 days. Composite gestational age from present scan: 20 weeks 3/7 days. Estimated weight and percentile: 340 g. 50 percentile. Measurement variability for biometric dating: +/- 7 days from 14 weeks to 15 weeks 6 days gestation, +/- 10 days from 16 weeks to 21 weeks 6 days gestation, +/- 2 weeks from 22 weeks to 27 weeks 6 days gestation, +/- 3 weeks for 28 weeks gestation or later. weight reference: 4500 g or EFW >90/95% is considered macrosomia or large for gestational age. EFW <10% is small for gestational age. EFW 5% or less is considered intra-uterine growth restriction. Anatomic survey: Neuro: Ventricles are non-dilated at less than 10 mm. Cisterna magna is normal at 3-11 mm. Cerebellum is normal in size and morphology. Nuchal skin fold: Normal at less than 6 mm between 14-21 weeks gestational age. Face: Nose and lips, facial profile are normal. Spine: No evidence for spina bifida. Heart: 4-chambered heart is present, with normal ventricular outflow tracts. Questionable left ventricle echogenic focus does not appear bright enough to suggest calcification of papillary muscle. Diaphragm: Diaphragm is intact. Stomach: Left-sided stomach is present. Kidneys: No hydronephrosis. Normal is less than 5 mm in 2nd trimester, less than 7 mm in 3rd trimester. Cord: 3-vessel cord has orthotopic insertion. Bladder: Normal in size. Extremities: All 4 extremities identified. IMPRESSION: 1. [place] living intrauterine at 20 weeks 3/7 days based on today's ultrasound. This is concordant with the external assessment. There is expected interval growth. 2. Normal amniotic fluid. Marginal placenta previa. Followup ultrasound is recommended. 3. profiles not well-seen. Otherwise normal anatomic survey. Dictated by: Norman Goldsmith M.D. on 09/05/2019 at 15:37 Approved by: Norman Goldsmith M.D. on 09/05/2019 at 15:47
== END ==
PROVIDERS: PCP Family Medicine; Visit Provider Obstetrics & Gynecology
DX: Z34.82 Encounter for supervision of other normal pregnancy, second trimester (principal); Z3A.20 20 weeks gestation of pregnancy
CPT/HCPCS: 76811

== ENCOUNTER → 2019-09-12 12:25 | Outpatient (CLI) | payer OTHER, MEDICAID, SELFPAY | PROVIDERS: PCP Family Medicine; Visit Provider Obstetrics & Gynecology | DX: O26.892 Other specified pregnancy related conditions, second trimester (principal); R10.2 Pelvic and perineal pain; Z34.82 Encounter for supervision of other normal pregnancy, second trimester; Z3A.21 21 weeks gestation of pregnancy | CPT/HCPCS: 87086 ==

== ENCOUNTER 2019-11-11 21:08 | Observation (INO) | payer OTHER, MEDICAID, SELFPAY ==
[2019-11-11 21:58] LABS: Bacteria Urine None Seen; RBC Urine None Seen (0-5/HPF)
[2019-11-11 22:00] LABS: Appearance Urine UA CLEAR; Bilirubin Urine UA NEGATIVE (NEGATIVE); Color Urine UA YELLOW; Glucose Urine UA NEGATIVE (Negative); Ketones Urine UA 1+ (NEGATIVE); Leukocyte Esterase Urine UA NEGATIVE (NEGATIVE); Nitrite Urine UA NEGATIVE (Negative); Occult Blood Urine UA NEGATIVE (Negative); Protein Urine UA TRACE (Negative); Urobilinogen Urine UA 0.2 E.U./dL (0.2)
[2019-11-11] MEDS: NIFEdipine 10 MG CAPSULE PO ×4 (22:21→23:24)
[2019-11-11 22:27] LABS: Culture Indicated Urine Cult Not Indicated; Mucus Urine 1+ (Negative); Squamous Epithelial Cell Urine 1-5 /HPF (0-5/HPF); WBC Urine 0-1/HPF (0-5/HPF)
[2019-11-11 22:40] LABS: UR Morphine/Opiate cutoff 300 Negative (Negative); Ur Creatinine 50 (Normal); Ur Specific Gravity 1.025 (Normal); Urine Amphetamines Negative (Negative); Urine Barbiturates Negative (Negative); Urine Benzodiazepines Negative (Negative); Urine Cocaine Negative (Negative); Urine MDMA Negative (Negative); Urine Methadone Negative (Negative); Urine Methamphetamines Negative (Negative); Urine Oxycodone Negative (Negative); Urine Phencyclidine Negative (Negative); Urine Tetrahydrocannabinol Positive (Negative); Urine Tricyclic Antidepressant Negative (Negative); Urine pH 5 (Normal)
--- NOTE | 2019-11-11 23:45 | PM.OBTRLD ---
Visit Information Visit Information Date of evaluation: 11/11/19 Primary OB Provider: Deborah Ibrahim On-call OB Provider: Tiara Sandhu Reason for Evaluation: Yes pre-term labor [facility] Social History marital status: unmarried,single number of children: 1 caregiver/support person: No housing: apartment pets and animals: No education level: college occupational status: employed current occupational exposures/hazards: No seatbelt use: always helmet use: Yes water heater temp set < 120 deg: Yes working smoke detector in home: Yes fire extinguisher in home: Yes carbon monox detector in home: Yes firearms in home: No do you feel safe at home: Yes Smoking Status: Former smoker substance use type: does not use during the past year weight has: increased > 10 lbs well-balanced diet: about half the time daily servings fruits/ve-4 caffeine: Yes eating out: 1-3 times/week Type(s) of exercise: walking frequency: 3-4 times per week duration: decline to answer Review of Systems Review of Systems Narrative: Patient came in complaining of contractions starting approximately 1 hour before admission. She had been doing more physical activity this week. No vaginal bleeding. No leakage of fluid. Good movement. ROS Unobtainable: All systems reviewed & are unremarkable except as noted in HPI and below Exam Narrative Exam Narrative: Abdomen is soft, nontender. Extremities without edema and nontender Objective Labs Labs: Laboratory Results - last 24 hr 11/11/19 11/11/19 21:45 21:45 Urine Color Yellow Urine Appearance Clear Urine pH 6.0 Ur Specific [place] 1.020 Urine Protein Trace H Urine Glucose (UA) Negative Urine Ketones 1+ H Urine Occult Blood Negative Urine Nitrate Negative Urine Bilirubin Negative Urine Urobilinogen 0.2 Ur Leukocyte Esterase Negative Urine RBC None seen Urine WBC 0-1/hpf Ur Squamous Epith Cells 1-5 /hpf Urine Bacteria None seen Urine Mucus 1+ H Ur Culture Indicated? Cult not indicated U Morph 300 ng/mL cutoff Negative Ur Oxycodone Screen Negative Urine Methadone Screen Negative Ur Barbiturates Screen Negative U Tricyclic Antidepress Negative Ur Phencyclidine Scrn Negative Ur Amphetamines Screen Negative U Methamphetamines Scrn Negative Ur MDMA Scrn (Ecstasy) Negative U Benzodiazepines Scrn Negative Urine Cocaine Screen Negative U Marijuana (THC) Screen Positive H Evaluation Evaluation Baseline heart rate: 140 Variability: Moderate (11-25) monitor accelerations: Present monitor decelerations: Absent Contraction Frequency (minutes): 3 Uterine Contraction Intensity: Mild Category of Tracing: I Cervical dilation (cm): 0 station: -4 Laboratory results: Laboratory Tests 11/11/19 11/11/19 21:45 21:45 Urine Color Yellow Urine Appearance Clear Urine pH 6.0 Ur Specific [place] 1.020 Urine Protein Trace H Urine Glucose (UA) Negative Urine Ketones 1+ H Urine Occult Blood Negative Urine Nitrate Negative Urine Bilirubin Negative Urine Urobilinogen 0.2 Ur Leukocyte Esterase Negative Urine RBC None seen Urine WBC 0-1/hpf Ur Squamous Epith Cells 1-5 /hpf Urine Bacteria None seen Urine Mucus 1+ H Ur Culture Indicated? Cult not indicated U Morph 300 ng/mL cutoff Negative Ur Oxycodone Screen Negative Urine Methadone Screen Negative Ur Barbiturates Screen Negative U Tricyclic Antidepress Negative Ur Phencyclidine Scrn Negative Ur Amphetamines Screen Negative U Methamphetamines Scrn Negative Ur MDMA Scrn (Ecstasy) Negative U Benzodiazepines Scrn Negative Urine Cocaine Screen Negative U Marijuana (THC) Screen Positive H Diagnosis, Plan/Disposition Final Diagnosis (1) 29 weeks gestation of : Current Visit: Yes Status: Acute (2) uterine contractions in third trimester, antepartum: Current Visit: Yes Status: Acute Plan/Disposition Plan: Patient with contractions that resolved with p.o. fluid hydration and nifedipine x3. Patient was sent home with oral long-acting nifedipine to keep her appointment on 11/14 or return sooner if contractions recur. OB Disposition: home
[2019-11-11] MEDS: NIFEdipine 30 MG TAB ER PO (23:59)
[2019-11-12 00:07] LABS: Fetal Fibronectin Negative
== END 2019-11-11 23:55 | disposition home or self-care (01) ==
PROVIDERS: Specialist; Admitting Provider Obstetrics & Gynecology; PCP Family Medicine; Visit Provider Obstetrics & Gynecology
DX: O47.03 False labor before 37 completed weeks of gestation, third trimester (principal); Z3A.29 29 weeks gestation of pregnancy
CPT/HCPCS: 59025; 59050; 80305; 81001; 82731; G0378; G0379

== ENCOUNTER → 2019-11-28 11:44 | Outpatient (CLI) | payer OTHER, MEDICAID, SELFPAY ==
[2019-11-28 13:34] LABS: Hematocrit 32.9 % (36-46); Hemoglobin 11.4 g/dL (12.0-16.0)
[2019-11-28 13:52] LABS: GTT (PREG) 1 Hour PP 50gm Dose 171 mg/dL (76-139)
== END ==
PROVIDERS: PCP Family Medicine; Visit Provider Obstetrics & Gynecology
DX: Z34.82 Encounter for supervision of other normal pregnancy, second trimester (principal)
CPT/HCPCS: 36415; 82950; 85014; 85018

== ENCOUNTER → 2019-12-05 08:05 | Outpatient (CLI) | payer OTHER, MEDICAID, SELFPAY ==
[2019-12-05 10:03] LABS: Glucose Fasting Gestational 69 mg/dL (76-95)
[2019-12-05 11:13] LABS: Glucose 2 Hour Gest 93 mg/dL (76-155)
[2019-12-05 11:13] LABS: Glucose 1 Hour Gest 117 mg/dL (76-180)
[2019-12-05 11:35] LABS: Glucose Tol Interp,Gestational INTERPRETATION
[2019-12-05 12:08] LABS: Glucose 3 Hour Gest 91 mg/dL (76-140)
== END ==
PROVIDERS: PCP Family Medicine
DX: O99.810 Abnormal glucose complicating pregnancy (principal); Z34.83 Encounter for supervision of other normal pregnancy, third trimester
CPT/HCPCS: 36415; 82951; 82952

== ENCOUNTER 2019-12-16 16:28 | Observation (INO) | payer OTHER, MEDICAID, SELFPAY ==
--- NOTE | 2019-12-16 17:16 | PM.OBTRLD ---
Visit Information Visit Information Date of evaluation: 12/16/19 Primary OB Provider: Dawson Walker On-call OB Provider: Rosalina Branham Reason for Evaluation: Yes other Comments/Additional reasons for admission: Patient comes in due to pelvic pressure without contractions and mid back pain. She has had increased frequency of urination but no pain with urination. She has a h/o delivery at 27 weeks via and is on [place] this . Vital Signs Vital Signs: Temperature 36.7? blood pressure 95/55 heart rate 84 PFSH Social History marital status: unmarried,single number of children: 1 caregiver/support person: No housing: apartment pets and animals: No education level: college occupational status: employed current occupational exposures/hazards: No seatbelt use: always helmet use: Yes water heater temp set < 120 deg: Yes working smoke detector in home: Yes fire extinguisher in home: Yes carbon monox detector in home: Yes firearms in home: No do you feel safe at home: Yes Smoking Status: Former smoker substance use type: does not use during the past year weight has: increased > 10 lbs well-balanced diet: about half the time daily servings fruits/ve-4 caffeine: Yes eating out: 1-3 times/week Type(s) of exercise: walking frequency: 3-4 times per week duration: decline to answer Evaluation Evaluation Baseline heart rate: 130 Variability: Moderate (11-25) monitor accelerations: Present monitor decelerations: Absent Diagnosis, Plan/Disposition Final Diagnosis (1) 34 weeks gestation of : Current Visit: No Status: Acute (2) H/O: : Current Visit: No Status: Chronic (3) H/O delivery, currently : Current Visit: No Status: Chronic Plan/Disposition Plan: 29 year old at 34+5 weeks gestation with pelvic pressure and back pain. No significant contractions on the monitor and last CL was 4.5 cm 4 days ago. RN checked patient on arrival due to complaints of pressure and cervix was closed. UA showed 1+ LE and few bacteria. Will send for culture and treat if indicated. Patient will follow up in clinic as scheduled next week. OB Disposition: home
[2019-12-16 17:37] LABS: Appearance Urine UA CLEAR; Bilirubin Urine UA NEGATIVE (NEGATIVE); Color Urine UA YELLOW; Glucose Urine UA NEGATIVE (Negative); Ketones Urine UA NEGATIVE (NEGATIVE); Leukocyte Esterase Urine UA 1+ (NEGATIVE); Nitrite Urine UA NEGATIVE (Negative); Occult Blood Urine UA NEGATIVE (Negative); Protein Urine UA NEGATIVE (Negative); Specific Gravity Urine UA <=1.005 (1.000-1.035); Urobilinogen Urine UA 0.2 E.U./dL (0.2)
[2019-12-16 17:39] LABS: Bacteria Urine Few (2-10); Culture Indicated Urine Specimen Cultured; RBC Urine 0-1/HPF (0-5/HPF); Squamous Epithelial Cell Urine 0-1 /HPF (0-5/HPF); WBC Urine 1-5/HPF (0-5/HPF); pH Urine UA 6.5 (4.5-8.0)
[2019-12-16 17:40] LABS: Urine Comments LEU ESTERASE +
== END 2019-12-16 18:35 | disposition home or self-care (01) ==
PROVIDERS: Family Medicine; PCP Family Medicine
DX: O09.219 Supervision of pregnancy with history of pre-term labor, unspecified trimester (principal); O26.893 Other specified pregnancy related conditions, third trimester; Z98.891 History of uterine scar from previous surgery; Z3A.34 34 weeks gestation of pregnancy; R10.2 Pelvic and perineal pain; M54.9 Dorsalgia, unspecified
CPT/HCPCS: 59025; 59050; 81001; 87077; 87086; G0378; G0379

== ENCOUNTER → 2019-12-19 12:21 | Outpatient (CLI) | payer OTHER, MEDICAID, SELFPAY ==
[2019-12-20 09:57] LABS: Strep Grp B PCR NEG for Grp B Strep
== END ==
PROVIDERS: PCP Family Medicine; Visit Provider Obstetrics & Gynecology
DX: Z34.83 Encounter for supervision of other normal pregnancy, third trimester (principal)
CPT/HCPCS: 87653

== ENCOUNTER 2020-01-03 13:41 | Observation (INO) | payer OTHER, MEDICAID, SELFPAY ==
--- NOTE | 2020-01-03 15:07 | PM.OBTRLD ---
Visit Information Visit Information Date of evaluation: 01/03/20 Primary OB Provider: Dawson Walker On-call OB Provider: Criselda Griffin Reason for Evaluation: Yes rupture of membranes Comments/Additional reasons for admission: Pt with concerns for LOF. [facility] Social History marital status: unmarried,single number of children: 1 caregiver/support person: No housing: apartment pets and animals: No education level: college occupational status: employed current occupational exposures/hazards: No seatbelt use: always helmet use: Yes water heater temp set < 120 deg: Yes working smoke detector in home: Yes fire extinguisher in home: Yes carbon monox detector in home: Yes firearms in home: No do you feel safe at home: Yes Smoking Status: Former smoker substance use type: does not use during the past year weight has: increased > 10 lbs well-balanced diet: about half the time daily servings fruits/ve-4 caffeine: Yes eating out: 1-3 times/week Type(s) of exercise: walking frequency: 3-4 times per week duration: decline to answer Evaluation Evaluation Baseline heart rate: 130 Variability: Moderate (11-25) monitor accelerations: Present monitor decelerations: Absent Diagnosis, Plan/Disposition Final Diagnosis (1) uterine contractions in third trimester, antepartum: Current Visit: No Status: Acute (2) 37 weeks gestation of : Current Visit: Yes Status: Acute Plan/Disposition Plan: Amnisure negative - no concern for ROM. Very infrequent contractions on monitoring. FHT reassuring. Stable to d/c home. OB Disposition: home
== END 2020-01-03 15:00 | disposition home or self-care (01) ==
PROVIDERS: PCP Family Medicine
DX: Z34.83 Encounter for supervision of other normal pregnancy, third trimester (principal); Z3A.37 37 weeks gestation of pregnancy
CPT/HCPCS: 59025; 59050; 59200; 84112; G0378; G0379

== ENCOUNTER 2020-01-16 07:59 | Inpatient (IN) | payer OTHER, MEDICAID, SELFPAY ==
[2020-01-16] MEDS: LACTATED RINGERS 1,000 ML 120 ML IV ×2 (08:30→10:36)
[2020-01-16 08:46] LABS: Add Manual Diff / Slide Review NO; Basophils Absolute Auto 100 /uL (0-100); Basophils Percent Auto 0.5 % (0-2); Eosinophils Absolute Auto 100 /uL (0-450); Eosinophils Percent Auto 0.5 % (2-4); Hematocrit 32.8 % (36-46); Hemoglobin 11.2 g/dL (12.0-16.0); Lymphocytes Absolute Auto 1600 /uL (1100-4500); Lymphocytes Percent Auto 9.9 % (25-40); Mean Corpuscular HGB Conc 34.1 % (30-36); Mean Corpuscular Hemoglobin 34.1 PG (26-34); Mean Corpuscular Volume 99.9 fL (80-100); Monocytes Absolute Auto 700 /uL (0-900); Monocytes Percent Auto 4.6 % (3-14); Neutrophils Absolute Auto 13500 /uL (1500-7000); Neutrophils Percent Auto 84.5 % (50-75); Platelet Count 266 X10^3/uL (150-400); Red Blood Cell Count 3.28 X10^6/uL (4.0-5.2); Red Cell Distribution Width 13.8 % (11.6-14.8)
[2020-01-16 09:13] VITALS: BP 100/55
[2020-01-16] MEDS: CEFOTETAN 2 GM/50 ML PIGGYBACK IV (10:19)
--- NOTE | 2020-01-16 10:33 | SUR.OPER ---
Supine on Padded OR bed, head on pillow, safety belt at thigh, arms secured on padded arm boards at <90 degrees abduction. Bump under right buttock. Legs uncrossed with pillow under knees, gel pad to heels, tape over blanket to lower legs.
--- NOTE | 2020-01-16 10:41 | SUR.OPER ---
FHT's 120. TOB 1033 live male. Cord blood x 2 and placenta to OB with OB Rn.
--- NOTE | 2020-01-16 11:01 | PM.GYNOP.1 ---
Operative Date/Time/Diagnoses Date of procedure: 01/16/20 Time of procedure: 11:01 Pre-op diagnosis: Term intrauterine History prior section Desire for repeat section Post-op diagnosis: same Procedure & Clinicians Procedure: Procedures Operation Date: 01/16/20 09:45 Actual Procedures Side Surgeon p Repeat Section Dawson Walker MD Indications: Term intrauterine History of prior section Desire for repeat section Surgeon: Dawson Walker Administrative Representative: Paula Santiago Anesthesia Type: Spinal Operative Notes Findings: Live-born male Normal tubes and ovaries Closure Type: primary Specimen(s): none Applied: catheter Estimated blood loss (mL): 500 Blood products transfused: none Procedure in detail: The patient was placed supine and anesthetized. She is placed in the dorsal lithotomy position examined under anesthesia. The head which have been well down the pelvis appeared higher up. The patient was then draped and prepared in the usual fashion. Transverse incision was made across the old scar. Subcutaneous was incised to the fascia. This was white blood finger dissection. Fascia was incised with a knife transversely each direction. Pyramidalis muscles were incised in the midline. This was widened by blunt finger dissection. Perineum was picked up and incised but the bladder flap had been extended high and was pushed down words. The bladder was well out of the way though it would appear this was extraperitoneal. Transverse incision was then made in uterine muscles and a perforating incision was made centrally and this was widened by blunt finger dissection. Membranes were ruptured and fluid was clear. Was a vertex presentation. Patient was delivered without difficulty. Cord was clamped incised cord blood was obtained. Infant was passed to the respiratory therapist and nursery pronounced the male infant normal in good condition. The placenta was removed by cord traction. All membranes were stripped from the endometrial cavity and the endometrial cavity is massaged with a lap sponge. Lateral edges of grasped with Allis Arnoldo clamps. Uterine incision was closed in imbricating fashion using a two layer technique with 1. Her period no bleeding points were seen. 2nd layer was then performed an imbricating fashion without difficulty. There was no bladder flap to close is is appeared to be extraperitoneal. Parietal peritoneum was closed with a running three 0 Vicryl suture. Area was copiously irrigated. For pyramidal is muscles reapproximated the midline using 1. Vicryl suture. Fascia was then closed with two continuous 1. Vicryl suture. Subcutaneous tissue was copiously irrigated. Subcutaneous tissue was closed in two layers. 1st layer was closed with interrupted three 0 Vicryl suture. The 2nd was closed using a Clement needle in a subcuticular stitch using three 0 Monocryl. At the end of procedure the wound was dry. There is minimal vaginal bleeding. Urine was clear. Patient was taken to the recovery room in satisfactory condition. Complications: none Post-operative Condition: stable Disposition: PACU Plan for aftercare: Routine care an obstetric
[2020-01-16 11:15] VITALS: BP 99/50; PULSE 79; RESP 17; O2SAT 92
[2020-01-16 11:16] VITALS: BP 94/60; PULSE 72; RESP 10; TEMP 36.1; O2SAT 96
[2020-01-16 11:25] VITALS: BP 90/52; PULSE 64; RESP 21; O2SAT 95
--- NOTE | 2020-01-16 11:36 | SUR.PHASEI ---
Transferred patient to center in stable condition. VSS. Report given to Tricia. Bedside check of patient done on arrival to Birthing center
[2020-01-16] MEDS: KETOROLAC 30 MG/ML VIAL IV ×2 (12:20→18:36)
[2020-01-16] MEDS: diphenhydrAMINE 50 MG/ML VIAL 25 MG IV ×2 (12:45→13:45)
[2020-01-16] MEDS: HYDROCODONE/ACET 5/325 TABLET 1 TAB PO ×2 (13:09→17:13)
[2020-01-16] MEDS: LACTATED RINGERS 1,000 ML 100 ML IV (13:11)
[2020-01-16] MEDS: hydrOXYzine pamoate 25 MG CAPSULE 50 MG PO (17:10)
[2020-01-16 17:13] VITALS: TEMP 36.6
[2020-01-16] MEDS: DOCUSATE 250 MG CAPSULE PO (18:42)
[2020-01-16] MEDS: FERROUS GLUCONATE 324 MG TABLET PO (18:43)
[2020-01-17] MEDS: hydrOXYzine pamoate 25 MG CAPSULE 50 MG PO (05:56)
[2020-01-17] MEDS: LACTATED RINGERS 1,000 ML 100 ML IV (05:56)
[2020-01-17] MEDS: KETOROLAC 30 MG/ML VIAL IV ×2 (05:56)
[2020-01-17] MEDS: HYDROCODONE/ACET 5/325 TABLET 1 TAB PO ×2 (05:56→16:09)
[2020-01-17 06:55] LABS: Hematocrit 29.2 % (36-46)
[2020-01-17 07:00] VITALS: BP 93/59; PULSE 65; RESP 18; TEMP 36.9
--- NOTE | 2020-01-17 08:14 | PM.OBPN.1 ---
Subjective - OB Subjective Patient comments: no complaints [place] baby status: doing well feeding status: exclusively breast feeding Narrative: Baby and mother doing well Date Patient Seen: 01/17/20 Time Patient Seen: 08:15 Exam Vital Signs (past 8 hours): Oxygen Delivery Method Room Air Narrative Exam Narrative: Fundus U minus three Incision with Aquacel dressing Lochia scant Objective Labs Result Diagrams: 01/17/20 06:30 Labs: Laboratory Results - last 24 hr 01/16/20 01/16/20 01/17/20 08:20 08:20 06:30 WBC 16.0 H RBC 3.28 L Hgb 11.2 L 10.0 L Hct 32.8 L 29.2 L MCV 99.9 MCH 34.1 H MCHC 34.1 RDW 13.8 Plt Count 266 Neut % (Auto) 84.5 H Lymph % (Auto) 9.9 L Cameron % (Auto) 4.6 Eos % (Auto) 0.5 L Baso % (Auto) 0.5 Neut # (Auto) 48667 H Lymph # (Auto) 1600 Cameron # (Auto) 700 Eos # (Auto) 100 Baso # (Auto) 100 Blood Type O Positive Antibody Screen Negative Assessment & Plan Assessment and Plan (1) examination following delivery: Problem details: DC hep lock Ambulating Status: Acute Current Visit: Yes Time Spent With Patient Time: Total time spent is greater than 50% in coordination of care (as documented) at patient's floor/unit and/or counseling patient: Time with patient: less than 15 minutes
[2020-01-17] MEDS: IBUPROFEN 600 MG TABLET PO (16:09)
--- NOTE | 2020-01-17 17:56 | PM.OBDS.1 ---
Discharge Providers Provider Date of admission: 01/16/20 07:59 Discharge Date: 01/17/20 Primary care physician: Criselda Griffin MD Consults: 01/16/20 11:55 Consult to Tarp Repairer Routine Comment: Discharge provider: Dawson Walker MD Summary Hospital Course Date Patient Seen: 01/17/20 Time Patient Seen: 17:57 Procedures: Spinal anesthesia Repeat section Hospital Course: Patient is a 29 year two para one with history of prior section. Patient was admitted for elective repeat section. Patient underwent elective repeat section without incident. She was delivered of a live-born female without difficulties. Postoperative she did well. She remained afebrile with stable vital signs and progressively was ambulate and taking p.o. well. She was discharged home for follow-up in one week for dressing Peripartum Data Delivery Method: Section Status at Discharge Cognitive/behavioral status at discharge: oriented Functional status at discharge: independent ambulation Overall status at discharge: patient is progressing back to baseline Time Spent with Patient Time attestation: Total time spent providing and/or coordinating discharge services: Time spent: Less than 30 minutes Specific discharge activities: May shower Limit stair Objective Labs Result Diagrams: 01/17/20 06:30 Labs: Laboratory Results - last 24 hr 01/17/20 06:30 Hgb 10.0 L Hct 29.2 L Exam Vital Signs (past 8 hours): Oxygen Delivery Method Room Air Narrative Exam Narrative: Fundus U minus two Incision covered by Aquacel dressing Lochia scant Discharge Plan Discharge Plan Patient Disposition: Home Discharge orders & Medications Prescriptions: New oxycodone 10 mg Tablet 10 mg PO Q4HR PRN (Reason: Pain, Severe (7-10)) Qty: 10 RF: 0 ibuprofen 600 mg Tablet 600 mg PO Q6HR PRN (Reason: Fever/Mild Pain (1-3)) Qty: 16 RF: 0 Tkv-V-Rdtnol Cream 1 applic topical PRN PRN (Reason: ) Qty: 1 RF: 0 docusate sodium 250 mg Capsule 250 mg PO DAILY Qty: 16 RF: 0 ferrous gluconate 324 mg (38 mg iron) Tablet 324 mg PO DAILY Qty: 30 RF: 0 Prenatabs Rx 29 mg iron- 1 mg Tablet 1 tab PO DAILY Qty: 30 RF: 0 Discontinued hydroxyzine HCl 25 mg tablet 25 mg PO Q6-8H PRN (Reason: severe anxiety) Qty: 30 RF: 3 maternity support belt See Rx Instructions .ROUTE .COMPLEX Qty: 1 RF: 0 prenat.vits,tennille,asr-dvih-nhzve tablet 1 tab PO DAILY RF: 0 No Action (DME) Wrist Brace misc See Dose Instructions .ROUTE .MEDSUPPLY Qty: 1 RF: 0 (DME) Wrist Brace misc See Dose Instructions .ROUTE .MEDSUPPLY Qty: 1 RF: 0 (DME) Double Electric Breast Pump Qty: 1 RF: 0 Follow up/Referrals: Criselda Griffin MD [Primary Care Provider] - Dawson Walker MD [Physician] - 1 Week Discharge Health Status Multidrug resistant organism: No MDRO Diet/Activity/Treatments Diet: Diet as Tolerated Activity: Up ad kathia Skin/Wound/Dressing Care Skin care: Keep Aquacel dressing dry Report to your healthcare provider any signs of infection, such as:: chills, fever, increased pain, unusual drainage and unusual redness Dressing: Aquacel dressing Visit Report/Discharge Packet Instructions: DI for Prescription Opioid Use Discharge Data Primary Care Provider: Criselda Griffin
== END 2020-01-17 19:05 | disposition home or self-care (01) | DRG 540 ==
PROVIDERS: PCP Family Medicine
PROC: 10D00Z1 Extraction of Products of Conception, Low, Open Approach (ICD-10-PCS; CPT 59514; principal; 2020-01-16 09:45)
DX: O34.219 Maternal care for unspecified type scar from previous cesarean delivery (principal); Z3A.39 39 weeks gestation of pregnancy; Z37.0 Single live birth; D62 Acute posthemorrhagic anemia
CPT/HCPCS: 36415; 59050; 59514; 85014; 85018; 85025; 86850; 86900; 86901; J1200; J1885; J2274; J2405; J2704

== ENCOUNTER 2020-03-09 18:40 | Emergency (ER) | payer OTHER, MEDICAID, SELFPAY ==
[2020-03-09 18:50] VITALS: BP 101/64; PULSE 82; RESP 14; TEMP 37.1; O2SAT 97; BMI 29.2
--- NOTE | 2020-03-09 19:11 | DI.RAD.S_ITS ---
PROCEDURE: XR CHEST 2V INDICATIONS: chest pain, productive cough TECHNIQUE: 2 views of the chest were acquired. COMPARISON: [facility], CR, XR CHEST 2V, 08/10/2019, 17:27. FINDINGS: Surgical changes and devices: None. Lungs and pleura: Lungs are clear. No pleural effusions or pneumothorax. Mediastinum: Mediastinal contours are normal. Heart size is normal. Bones and chest wall: No suspicious bony abnormalities. Soft tissues appear unremarkable. IMPRESSION: No acute cardiopulmonary findings. Dictated by: Ida Parson M.D. on 03/09/2020 at 19:30 Approved by: Ida Parson M.D. on 03/09/2020 at 19:30
[2020-03-09 20:04] LABS: Add Manual Diff / Slide Review NO; Basophils Absolute Auto 100 /uL (0-100); Basophils Percent Auto 0.9 % (0-2); Eosinophils Absolute Auto 300 /uL (0-450); Eosinophils Percent Auto 3.8 % (2-4); Hemoglobin 12.9 g/dL (12.0-16.0); Lymphocytes Absolute Auto 2200 /uL (1100-4500); Lymphocytes Percent Auto 28.8 % (25-40); Mean Corpuscular Hemoglobin 32.7 PG (26-34); Monocytes Absolute Auto 500 /uL (0-900); Monocytes Percent Auto 5.9 % (3-14); Neutrophils Absolute Auto 4700 /uL (1500-7000); Neutrophils Percent Auto 60.6 % (50-75); Platelet Count 280 X10^3/uL (150-400); Red Blood Cell Count 3.96 X10^6/uL (4.0-5.2); Red Cell Distribution Width 13.5 % (11.6-14.8); White Blood Cell Count 7.7 X10^3/uL (4.5-11.0)
[2020-03-09 20:14] LABS: Alanine Aminotransferase 8 IU/L (<35); Albumin 3.8 g/dL (3.5-5.0); Albumin Globulin Ratio 1.4 (1.0-2.8); Alkaline Phosphatase 75 U/L (38-126); Aspartate Aminotransferase 14 IU/L (14-36); BUN Creatinine Ratio 9.5 (6-22); Bilirubin Total 0.1 mg/dL (0.2-1.3); Blood Urea Nitrogen 8 mg/dL (7-17); Calcium 9.1 mg/dL (8.4-10.2); Carbon Dioxide 24 mmol/L (22-32); Chloride 109 mmol/L (98-107); Creatine Kinase 31 U/L (30-135); D Dimer < 200 ng/mL (<230); Estimated Glomerular Filt Rate > 60.0 mL/min (>60); Globulin 2.8 g/dL (1.7-4.1); Glucose 88 mg/dL (70-100); HEMOLYSIS < 15 (0-50); Sodium 138 mmol/L (137-145); Total Protein 6.6 g/dL (6.3-8.2)
[2020-03-09 20:15] VITALS: BP 95/68; PULSE 68; RESP 25; O2SAT 97
[2020-03-09 20:15] LABS: Lipase 63 U/L (23-300)
[2020-03-09 20:26] LABS: Troponin I < 0.012 ng/mL (0.01-0.034)
[2020-03-09 20:30] VITALS: BP 97/55; PULSE 72; O2SAT 96
[2020-03-09] MEDS: ALBUTEROL HFA 60 PUFF/8 GM INH INH (20:36)
[2020-03-09 21:00] VITALS: BP 95/52; PULSE 65; RESP 27; O2SAT 94
[2020-03-09] MEDS: ACETAMINOPHEN 325 MG TABLET 650 MG PO (21:05)
--- NOTE | 2020-03-09 21:19 | ED.SOB ---
HPI - SOB/Dyspnea <MOSHE Trinidad - Last Filed: 03/09/20 22:58> General Chief Complaint: Shortness of Breath/Dyspnea Stated Complaint: COUGH CHEST DISCOMFORT SOB Time Seen by Provider: 03/09/20 18:59 Source: patient Mode of arrival: Ambulatory Limitations: no limitations History of Present Illness HPI Narrative: This is a 29-year-old female, smoker, presents to ED with productive cough for several months with 2 week period of chest pain. Patient reports her discomfort locates in all over chest and right posterior shoulder and sore throat which started today. Patient reports her phlegm is sometimes clear, green, black color with specks of blood. Patient denies fever, chills, nausea or vomiting, calf pain. Patient states she has frequent back pain after epidural injection during in 01/12/20. Patient is not sure her chest pain is related to her anxiety. She contacted her primary care physician, Dr. Griffin's office in request of antibiotic medication and she was instructed to go to ED for an evaluation and treatment. Patient is smoking to cope with her depression, anxiety and also has an eating disorder with over eating and anorexia and bulimia. Patient currently sees counseling therapy and denies homicidal or suicidal ideation. Patient denies history of DVT, blood clots, PE, prolonged bed rest except in 01/12/20. Related Data Previous Rx's Medication Instructions Recorded arm brace #1 each 07/01/19 arm brace #1 each 07/05/19 Double Electric Breast Pump #1 ea 11/21/19 docusate sodium 250 mg PO DAILY #16 cap 01/17/20 lanolin [[id number]] 1 applic TOPICAL PRN PRN #1 g 01/17/20 vit,[id number] 1 tab PO DAILY #30 tab 01/17/20 [Prenatabs Rx] hydrocodone 5 mg-acetaminophen 325 1 tab PO Q8H PRN #20 tab 02/22/20 mg tablet prednisone 50 mg PO DAILY #5 tab 03/09/20 Allergies Allergy/AdvReac Type Severity Reaction Status Date / Time amoxicillin Allergy Severe Hives Verified 03/09/20 18:57 Penicillins Allergy Severe UNK Verified 03/09/20 18:57 venlafaxine AdvReac Severe loss of Verified 03/09/20 18:57 control of her eyes, visual changes, vomiting Review of Systems <MOSHE Trinidad - Last Filed: 03/09/20 22:58> Review of Systems Narrative: General: Denies fever, chills, fatigue, malaise, sweats. HEENT: Denies sinus pain, ear pain, (+) sore throat, difficulty swallowing, dizziness. Respiratory: See HPI Cardiovascular: Denies (+) chest pain and right posterior shoulder pain, palpitations, orthopnea, edema. Gastrointestinal: Denies nausea, vomiting, abdominal pain, diarrhea, constipation, melena. : Denies dysuria, frequency, incontinence, hematuria, urinary retention. Musculoskeletal: Denies weakness, joint pain or bony pain. Skin: Denies rash, skin lesions, or other. Neurologic: Denies weakness, headache, numbness, change in speech, confusion, seizures, incoordination. Psychiatric: No concerning psychosocial issues. 12-point review of systems is negative except for those stated above. Patient History <MOSHE Trinidad - Last Filed: 03/09/20 22:58> Medical History Acne (Chronic) Anxiety (Chronic) Depression (Chronic) Eating disorder (Acute) Foot pain (Chronic 2006) Surgical History Anesthesia (Resolved) History of surgery (Resolved 1999) History of third molar tooth extraction (Resolved ~2008) Status post left foot surgery (Resolved ~2009) Family History Grandfather Heart attack Brother No problems noted. Brother No problems noted. Father No problems noted. Grandmother No problems noted. Grandfather No problems noted. Grandmother No problems noted. Mother No problems noted. Social History marital status: unmarried,single number of children: 1 caregiver/support person: No housing: apartment pets and animals: No education level: college occupational status: employed current occupational exposures/hazards: No seatbelt use: always helmet use: Yes water heater temp set < 120 deg: Yes working smoke detector in home: Yes fire extinguisher in home: Yes carbon monox detector in home: Yes firearms in home: No do you feel safe at home: Yes Smoking Status: Current every day smoker substance use type: does not use during the past year weight has: increased > 10 lbs well-balanced diet: about half the time daily servings fruits/ve-4 caffeine: Yes eating out: 1-3 times/week Type(s) of exercise: walking frequency: 3-4 times per week duration: decline to answer Smoking Status: Current every day smoker alcohol intake frequency: 0-2 drinks per day Substance Use Type: does not use Exam <MOSHE Trinidad - Last Filed: 03/09/20 22:58> Narrative Exam Narrative: GEN: Alert, oriented x 3, well appearing and nourished, and in no acute distress. Head: Normal cephalic, atraumatic. No scalp or temporal tenderness, palpable mass or rash. EYES: Pupils are equal, round, and reactive to light and accommodation. Extraocular muscles are intact bilaterally. There is no subconjunctival hemorrhage, exudate and sclera non-icteric. ENT: Hearing grossly intact. Nose without bleeding, purulent discharge. Mucous membrane moist, no mucosal lesion. Throat without erythema, tonsillar hypertrophy or exudate. Uvula in midline, airway patent. Neck: Trachea in midline. No JVD, non-tender without lymphadenopathy. No masses or thyroid megaly. Supple, non-tender and no meningeal signs. CARDIAC: Normal regular rate and rhythm without murmurs, gallops, or rubs. No chest wall tenderness. No peripheral edema, cyanosis or pallor. Capillary refill is less than 2 seconds. RESPIRATORY: Lungs are wheezing and rhonchi in bilateral upper lobes to auscultate. Occasional cough witnessed during exam. No stridor, respiratory distress, increase work of breathing, or accessary muscle used. ABD: Abdomen soft, nontender and non-distended. No guarding or rebound tenderness to palpate. Bowel sounds are normal in all 4 quadrants. There is no palpable masses or organomegaly. EXT: Full painless ROM of all extremities with no loss of sensation, strength, effusion or edema. SKIN: Warm, dry, normal color for patient. No erythema, lesions or rash over visible areas. BACK: Nontender without deformity or crepitance. No flank tenderness. NEUROLOGICAL: Alert and oriented to place, time and person. Sensation and motor function intact bilaterally. No facial droops, dysphasia. PSYCHIATRIC: Good judgement and reason, without hallucinations, abnormal affect or abnormal behaviors during the examination. Patient is not suicidal. Initial Vital Signs Initial Vital Signs: Vital Signs Temperature 98.8 F 03/09/20 18:50 Pulse Rate 82 03/09/20 18:50 Respiratory Rate 14 03/09/20 18:50 Blood Pressure 101/64 03/09/20 18:50 Pulse Oximetry 97 03/09/20 18:50 <Casimiro García DO - Last Filed: 03/09/20 23:23> Initial Vital Signs Initial Vital Signs: Vital Signs Temperature 98.8 F 03/09/20 18:50 Pulse Rate 82 03/09/20 18:50 Respiratory Rate 14 03/09/20 18:50 Blood Pressure 101/64 03/09/20 18:50 Pulse Oximetry 97 03/09/20 18:50 Scores <MOSHE Trinidad - Last Filed: 03/09/20 22:58> PERC Score Age greater than or equal to 50 years: No Heart rate greater than or equal to 100 bpm: No Room Air O2 Sat less than 95%: No Unilateral leg swelling: No Recent trauma or surgery: No Hemoptysis: Yes Prior PE or DVT: No Hormone Use: No Total PERC Score: 1 Wells' Criteria for PE Clinical signs and symptoms of DVT: No PE is #1 Dx or equally likely: No Heart rate > 100: No Immobilization at least 3 days or surg in previous 4 weeks: No History of PE or DVT: No Hemoptysis: Yes Malignancy w/Treatment within 6 months or palliative: No Wells' PE Score total: 1 Course <MOSHE Trinidad - Last Filed: 03/09/20 22:58> Orders Ordered: ED Orders 03/09/20 18:57 EKG-12 Lead Routine 03/09/20 19:11 XR chest 2V Stat 03/09/20 19:54 Complete Blood Count AUTO DIFF Stat Comprehensive Metabolic Panel Stat D Dimer Stat Lipase Stat Troponin & CK Cardiac Panel Stat Discontinued Medications Acetaminophen (Tylenol) 650 mg PO NOW ONE Stop: 03/09/20 21:01 Last Admin: 03/09/20 21:05 Dose: 650 mg Documented by: KASSIEEAVE Albuterol (Ventolin Hfa) 4 puff INH NOW ONE Stop: 03/09/20 19:13 Last Admin: 03/09/20 20:36 Dose: 4 puff Documented by: JOS Bacitracin (Bacitracin) 1 applic TOP NOW ONE Stop: 03/09/20 19:37 Diphtheria/Tetanus/Acell Pertussis (Adacel) 0.5 ml IM .ONCE ONE Stop: 03/09/20 19:37 Lidocaine/Sodium Bicarbonate (Buffered Lidocaine 10 Ml Syr) 10 ml INJ NOW ONE Stop: 03/09/20 19:37 Vital Signs Vital signs: Vital Signs - 8 hr 03/09/20 18:50 03/09/20 20:15 03/09/20 20:30 Temperature 98.8 F Pulse Rate 82 68 72 Respiratory Rate 14 25 H Blood Pressure 101/64 Blood Pressure [Left Arm] 95/68 97/55 L Pulse Oximetry 97 97 96 03/09/20 21:00 03/09/20 21:45 Temperature Pulse Rate 65 82 Respiratory Rate 27 H 16 Blood Pressure Blood Pressure [Left Arm] 95/52 L 95/62 Pulse Oximetry 94 100 <Casimiro García DO - Last Filed: 03/09/20 23:23> Orders Ordered: ED Orders 03/09/20 18:57 EKG-12 Lead Routine 03/09/20 19:11 XR chest 2V Stat 03/09/20 19:54 Complete Blood Count AUTO DIFF Stat Comprehensive Metabolic Panel Stat D Dimer Stat Lipase Stat Troponin & CK Cardiac Panel Stat Discontinued Medications Acetaminophen (Tylenol) 650 mg PO NOW ONE Stop: 03/09/20 21:01 Last Admin: 03/09/20 21:05 Dose: 650 mg Documented by: LESIA Albuterol (Ventolin Hfa) 4 puff INH NOW ONE Stop: 03/09/20 19:13 Last Admin: 03/09/20 20:36 Dose: 4 puff Documented by: JOS Bacitracin (Bacitracin) 1 applic TOP NOW ONE Stop: 03/09/20 19:37 Diphtheria/Tetanus/Acell Pertussis (Adacel) 0.5 ml IM .ONCE ONE Stop: 03/09/20 19:37 Lidocaine/Sodium Bicarbonate (Buffered Lidocaine 10 Ml Syr) 10 ml INJ NOW ONE Stop: 03/09/20 19:37 Vital Signs Vital signs: Vital Signs - 8 hr 03/09/20 18:50 03/09/20 20:15 03/09/20 20:30 Temperature 98.8 F Pulse Rate 82 68 72 Respiratory Rate 14 25 H Blood Pressure 101/64 Blood Pressure [Left Arm] 95/68 97/55 L Pulse Oximetry 97 97 96 03/09/20 21:00 03/09/20 21:45 Temperature Pulse Rate 65 82 Respiratory Rate 27 H 16 Blood Pressure Blood Pressure [Left Arm] 95/52 L 95/62 Pulse Oximetry 94 100 MDM - SOB/Dyspnea <Avila MOSHE Mobley - Last Filed: 03/09/20 22:58> Differential Diagnosis Differential diagnosis: Likely community acquired pneumonia, pulmonary embolism and other (bronchitis, atypical chest pain) Medical Records Attestation: I reviewed the patient's medical records. Lab Data Attestation: I reviewed the patient's lab results. Result diagrams: 03/09/20 19:54 03/09/20 19:54 Labs: Lab Results 03/09/20 03/09/20 03/09/20 Range/Units 19:54 19:54 19:54 WBC 7.7 (4.5-11.0) X10^3/uL RBC 3.96 L (4.0-5.2) X10^6/uL Hgb 12.9 (12.0-16.0) g/dL Hct 38.0 (36-46) % MCV 96.0 (80-100) fL MCH 32.7 (26-34) PG MCHC 34.0 (30-36) % RDW 13.5 (11.6-14.8) % Plt Count 280 (150-400) X10^3/uL Neut % (Auto) 60.6 (50-75) % Lymph % (Auto) 28.8 (25-40) % [place] % (Auto) 5.9 (3-14) % Eos % (Auto) 3.8 (2-4) % Baso % (Auto) 0.9 (0-2) % Neut # (Auto) 4700 (1843-6672) /uL Lymph # (Auto) 2200 (3300-7574) /uL [place] # (Auto) 500 (0-900) /uL Eos # (Auto) 300 (0-450) /uL Baso # (Auto) 100 (0-100) /uL D-Dimer < 200 (<230) ng/mL Sodium 138 (137-145) mmol/L Potassium 4.0 (3.4-5.1) mmol/L Chloride 109 H (98-107) mmol/L Carbon Dioxide 24 (22-32) mmol/L BUN 8 (7-17) mg/dL Creatinine 0.84 (0.52-1.04) mg/dL Estimated GFR > 60.0 (>60) mL/min BUN/Creatinine Ratio 9.5 (6-22) Glucose 88 (70-100) mg/dL Calcium 9.1 (8.4-10.2) mg/dL Total Bilirubin 0.1 L (0.2-1.3) mg/dL AST 14 (14-36) IU/L ALT 8 (<35) IU/L Alkaline Phosphatase 75 (38-126) U/L Total Creatine Kinase 31 (30-135) U/L CK-MB (CK-2) TNP CK-MB (CK-2) Rel Index TNP Troponin I < 0.012 (0.01-0.034) ng/mL Total Protein 6.6 (6.3-8.2) g/dL Albumin 3.8 (3.5-5.0) g/dL Globulin 2.8 (1.7-4.1) g/dL Albumin/Globulin Ratio 1.4 (1.0-2.8) Lipase (23-300) U/L 03/09/20 Range/Units 19:54 WBC (4.5-11.0) X10^3/uL RBC (4.0-5.2) X10^6/uL Hgb (12.0-16.0) g/dL Hct (36-46) % MCV (80-100) fL MCH (26-34) PG MCHC (30-36) % RDW (11.6-14.8) % Plt Count (150-400) X10^3/uL Neut % (Auto) (50-75) % Lymph % (Auto) (25-40) % [place] % (Auto) (3-14) % Eos % (Auto) (2-4) % Baso % (Auto) (0-2) % Neut # (Auto) (0160-7662) /uL Lymph # (Auto) (6891-0561) /uL [place] # (Auto) (0-900) /uL Eos # (Auto) (0-450) /uL Baso # (Auto) (0-100) /uL D-Dimer (<230) ng/mL Sodium (137-145) mmol/L Potassium (3.4-5.1) mmol/L Chloride (98-107) mmol/L Carbon Dioxide (22-32) mmol/L BUN (7-17) mg/dL Creatinine (0.52-1.04) mg/dL Estimated GFR (>60) mL/min BUN/Creatinine Ratio (6-22) Glucose (70-100) mg/dL Calcium (8.4-10.2) mg/dL Total Bilirubin (0.2-1.3) mg/dL AST (14-36) IU/L ALT (<35) IU/L Alkaline Phosphatase (38-126) U/L Total Creatine Kinase (30-135) U/L CK-MB (CK-2) CK-MB (CK-2) Rel Index Troponin I (0.01-0.034) ng/mL Total Protein (6.3-8.2) g/dL Albumin (3.5-5.0) g/dL Globulin (1.7-4.1) g/dL Albumin/Globulin Ratio (1.0-2.8) Lipase 63 (23-300) U/L Imaging Data Chest x-ray: My Impression: [address] [address] XRay Report Signed Patient: Chapincito Johnson [facility]#: [id number] : 1990Acct:[id number] Age/Sex: 29 / FDate of Service: 03/09/20 Loc: ED Accession Number: [id number] Procedure: XR chest 2V Ordering Provider: Avila Mobley PROCEDURE: XR CHEST 2V INDICATIONS: chest pain, productive cough TECHNIQUE: 2 views of the chest were acquired. COMPARISON: [facility], , XR CHEST 2V, 08/10/2019, 17:27. FINDINGS: Surgical changes and devices: None. Lungs and pleura: Lungs are clear. No pleural effusions or pneumothorax. Mediastinum: Mediastinal contours are normal. Heart size is normal. Bones and chest wall: No suspicious bony abnormalities. Soft tissues appear unremarkable. IMPRESSION: No acute cardiopulmonary findings. Dictated by: Ida Parson M.D. on 03/09/2020 at 19:30 Approved by: Ida Parson M.D. on 03/09/2020 at 19:30 ECG Data Attestation: I personally reviewed and interpreted this ECG as follows: Interpretation: Sinus rhythm with sinus arrhythmia rate at 74. Normal axis. OH int 125, QRS duration 88, QT/QTC 378/[address] elevation or depression noted. No significant changes from previous EKG. MDM Narrative Medical decision making narrative: This is a 29-year-old female who presents to ED with productive cough with clear, green mucus or occasional hemoptysis for several months and 2 week duration of chest pain. Lung sounds were wheezing and rhonchi to auscultate in bilateral upper lobes without increased work of breathing or respiratory distress. Respiratory rate was 14 and O2 sat was 97% in room air. Chest x-ray indicates no acute findings. Patient was provided with 4 puffs of albuterol inhaler with spacer which improved short of breath. Wells criteria for pulmonary embolism score was 1. PERC score was 1 as a low risk. D-dimer was negative and no further imaging test was done today. EKG shows normal sinus rhythm with sinus arrhythmia rate at 74. Cardiac enzymes were negative. There was no leukocytosis today. Chemistry test for unremarkable. Patient was medicated with Tylenol for chest discomfort and this is likely due to costo chondritis from frequent coughing. Patient requested antibiotic medication treatment and discussed in detail that it is not indicated to treat her symptoms with antibiotic medication at this time since patient does not have fever, increased WBC, clear chest x-ray. Frequently bronchitis is likely from viral infection and patient encouraged to stop smoking. Patient discharged to home with albuterol inhaler with spacer. Patient advised to start prednisone from tomorrow morning for 5 day course. Return precautions were discussed with the patient and patient verbalized understanding and in agreement with treatment plan. Patient also advised to follow-up with PCP with her mood disorders and eating disorders. Patient again verbalized understanding and denies suicidal or homicidal ideation. <Casimiro García, DO - Last Filed: 03/09/20 23:23> Lab Data Labs: Lab Results 03/09/20 03/09/20 03/09/20 Range/Units 19:54 19:54 19:54 WBC 7.7 (4.5-11.0) X10^3/uL RBC 3.96 L (4.0-5.2) X10^6/uL Hgb 12.9 (12.0-16.0) g/dL Hct 38.0 (36-46) % MCV 96.0 (80-100) fL MCH 32.7 (26-34) PG MCHC 34.0 (30-36) % RDW 13.5 (11.6-14.8) % Plt Count 280 (150-400) X10^3/uL Neut % (Auto) 60.6 (50-75) % Lymph % (Auto) 28.8 (25-40) % [place] % (Auto) 5.9 (3-14) % Eos % (Auto) 3.8 (2-4) % Baso % (Auto) 0.9 (0-2) % Neut # (Auto) 4700 (8076-0333) /uL Lymph # (Auto) 2200 (7357-2109) /uL [place] # (Auto) 500 (0-900) /uL Eos # (Auto) 300 (0-450) /uL Baso # (Auto) 100 (0-100) /uL D-Dimer < 200 (<230) ng/mL Sodium 138 (137-145) mmol/L Potassium 4.0 (3.4-5.1) mmol/L Chloride 109 H (98-107) mmol/L Carbon Dioxide 24 (22-32) mmol/L BUN 8 (7-17) mg/dL Creatinine 0.84 (0.52-1.04) mg/dL Estimated GFR > 60.0 (>60) mL/min BUN/Creatinine Ratio 9.5 (6-22) Glucose 88 (70-100) mg/dL Calcium 9.1 (8.4-10.2) mg/dL Total Bilirubin 0.1 L (0.2-1.3) mg/dL AST 14 (14-36) IU/L ALT 8 (<35) IU/L Alkaline Phosphatase 75 (38-126) U/L Total Creatine Kinase 31 (30-135) U/L CK-MB (CK-2) TNP CK-MB (CK-2) Rel Index TNP Troponin I < 0.012 (0.01-0.034) ng/mL Total Protein 6.6 (6.3-8.2) g/dL Albumin 3.8 (3.5-5.0) g/dL Globulin 2.8 (1.7-4.1) g/dL Albumin/Globulin Ratio 1.4 (1.0-2.8) Lipase (23-300) U/L 03/09/20 Range/Units 19:54 WBC (4.5-11.0) X10^3/uL RBC (4.0-5.2) X10^6/uL Hgb (12.0-16.0) g/dL Hct (36-46) % MCV (80-100) fL MCH (26-34) PG MCHC (30-36) % RDW (11.6-14.8) % Plt Count (150-400) X10^3/uL Neut % (Auto) (50-75) % Lymph % (Auto) (25-40) % [place] % (Auto) (3-14) % Eos % (Auto) (2-4) % Baso % (Auto) (0-2) % Neut # (Auto) (8515-3630) /uL Lymph # (Auto) (8376-1454) /uL [place] # (Auto) (0-900) /uL Eos # (Auto) (0-450) /uL Baso # (Auto) (0-100) /uL D-Dimer (<230) ng/mL Sodium (137-145) mmol/L Potassium (3.4-5.1) mmol/L Chloride (98-107) mmol/L Carbon Dioxide (22-32) mmol/L BUN (7-17) mg/dL Creatinine (0.52-1.04) mg/dL Estimated GFR (>60) mL/min BUN/Creatinine Ratio (6-22) Glucose (70-100) mg/dL Calcium (8.4-10.2) mg/dL Total Bilirubin (0.2-1.3) mg/dL AST (14-36) IU/L ALT (<35) IU/L Alkaline Phosphatase (38-126) U/L Total Creatine Kinase (30-135) U/L CK-MB (CK-2) CK-MB (CK-2) Rel Index Troponin I (0.01-0.034) ng/mL Total Protein (6.3-8.2) g/dL Albumin (3.5-5.0) g/dL Globulin (1.7-4.1) g/dL Albumin/Globulin Ratio (1.0-2.8) Lipase 63 (23-300) U/L Discharge Plan Departure Patient Disposition: Home Clinical Impression: Bronchitis Discharge Date/Time: 03/09/20 21:50 Instructions: DI for Cough -- Adult, DI for Acute Bronchitis Activity Restrictions/Additional Instructions: You have been diagnosed with [cough, bronchitis. Chest x-ray does not show acute findings such as pneumonia. CBC does not show elevated white count indicating infection. Chemistry test were unremarkable. Troponin/cardiac enzymes were negative. D-dimer was normal. EKG was normal sinus rhythm. No indication of heart attack or blood clots.]. What to do: *Take your medications as directed. Please use dispensed albuterol inhaler 2 puffs every 4-6 hours as needed for chest tightness, frequent cough. You can take [id number] Tylenol and or Motrin as needed for discomfort. Tylenol 650-1000 mg 3 times a day as needed. Ibuprofen 400 mg 3 times a day as needed for discomfort with food. Prednisone 50 mg once a day for next 5 days. This medication has been transmitted to [facility] in [place]. *Follow up with your primary care provider in 2-3 days, call for an appointment. Let them know you were seen in the ED and that we asked you to be seen in follow up. *Return to ED if you have any new, worsening, or concerning symptoms, such as [increasing pain, breathing difficulty, unable to tolerate fluids, fever, suicidal ideation or homicidal ideation or any worsening symptoms or acute concerns. Also please discussed with your PCP with your current difficulty with emotions, anxiety, depression, eating disorders and please continue with counseling therapy.]. Prescriptions: New prednisone 50 mg tablet 50 mg PO DAILY Qty: 5 RF: 0 No Action hydrocodone-acetaminophen 5-325 mg tablet 1 tab PO Q8H PRN (Reason: pain) Qty: 20 RF: 0 (DME) Wrist Brace misc See Dose Instructions .ROUTE .MEDSUPPLY Qty: 1 RF: 0 (DME) Wrist Brace misc See Dose Instructions .ROUTE .MEDSUPPLY Qty: 1 RF: 0 (DME) Double Electric Breast Pump Qty: 1 RF: 0 docusate sodium 250 mg Capsule 250 mg PO DAILY Qty: 16 RF: 0 Ivr-F-Dchesy Cream 1 applic topical PRN PRN (Reason: ) Qty: 1 RF: 0 Prenatabs Rx 29 mg iron- 1 mg Tablet 1 tab PO DAILY Qty: 30 RF: 0 Referrals: Criselda Griffin MD [Primary Care Provider] - <Casimiro García DO - Last Filed: 03/09/20 23:23> Cosign ED Attending Cosignature Attestation: I was immediately available in the department for consultation. This documentation has been reviewed and I agree with assessment and plan. Supervised by Casimiro Gracía DO
[2020-03-09 21:45] VITALS: BP 95/62; PULSE 82; RESP 16; O2SAT 100
== END 2020-03-09 21:50 | disposition home or self-care (01) ==
PROVIDERS: Emergency Provider Nurse Practitioner Family; PCP Family Medicine
DX: J40 Bronchitis, not specified as acute or chronic (principal); R07.9 Chest pain, unspecified; R05 Cough
CPT/HCPCS: 71046; 80053; 82550; 83690; 84484; 85025; 85379; 93005; 93010; 94640; 99284

== ENCOUNTER → 2020-03-15 13:56 | Outpatient (CLI) | payer OTHER, MEDICAID, SELFPAY ==
[2020-03-17 02:09] LABS: COVID19 Sendout Not Detected (Not Detected)
== END ==
PROVIDERS: PCP Family Medicine; Visit Provider Family Medicine
DX: R05 Cough (principal)
CPT/HCPCS: 87635

== ENCOUNTER → 2020-10-24 16:09 | Outpatient (CLI) | payer OTHER, MEDICAID, SELFPAY ==
--- NOTE | 2020-10-24 16:12 | DI.RAD.S_ITS ---
PROCEDURE: XR SCAPULA RT INDICATIONS: fell from a stool on top of the toilet TECHNIQUE: 2 views of the scapula were acquired. COMPARISON: None. FINDINGS: Bones: No fractures or dislocations. No suspicious bony lesions. Visualized ribs appear intact. Soft tissues: Overlying soft tissues appear normal. IMPRESSION: Normal for age, source of current pain after trauma symptoms is not seen. Dictated by: Vito Abdullahi M.D. on 10/24/2020 at 16:39 Approved by: Vito Abdullahi M.D. on 10/24/2020 at 16:40
--- NOTE | 2020-10-24 16:12 | DI.RAD.S_ITS ---
PROCEDURE: XR CLAVICLE RT INDICATIONS: fell from a stool on top of the toilet TECHNIQUE: 2 views of the clavicle were acquired. COMPARISON: None. FINDINGS: Bones: No fractures or dislocations. No suspicious bony lesions. Soft tissues: No suspicious soft tissue calcifications. IMPRESSION: Normal for age, source of current pain after trauma symptoms is not seen. Dictated by: Vito Abdullahi M.D. on 10/24/2020 at 16:39 Approved by: Vito Abdullahi M.D. on 10/24/2020 at 16:39
--- NOTE | 2020-10-24 16:12 | DI.RAD.S_ITS ---
PROCEDURE: XR SHOULDER RT MIN 2V INDICATIONS: fell from a stool on top of the toilet TECHNIQUE: 3 views of the shoulder were acquired. COMPARISON: [facility], CR, XR SHOULDER LT MIN 2V, 07/01/2019, 12:11. FINDINGS: Bones: No fractures or dislocations. No suspicious bony lesions. Visualized ribs appear intact. Soft tissues: No suspicious soft tissue calcifications. IMPRESSION: No trauma found, no appreciable degenerative change seen. Dictated by: Vito Abdullahi M.D. on 10/24/2020 at 16:38 Approved by: Vito Abdullahi M.D. on 10/24/2020 at 16:39
== END ==
PROVIDERS: PCP Family Medicine; Referring Provider Nurse Practitioner Family; Visit Provider Nurse Practitioner Family
DX: M25.511 Pain in right shoulder (principal); M89.8X1 Other specified disorders of bone, shoulder
CPT/HCPCS: 73000; 73010; 73030

== ENCOUNTER → 2021-03-28 13:55 | Outpatient (CLI) | payer OTHER, MEDICAID, SELFPAY ==
[2021-03-28 15:16] LABS: HCG Quantitative /Beta subunit < 2.4 mIU/mL
== END ==
PROVIDERS: PCP Family Medicine; Referring Provider Family Medicine; Visit Provider Family Medicine
DX: Z32.01 Encounter for pregnancy test, result positive (principal)
CPT/HCPCS: 36415; 84702

== ENCOUNTER 2021-04-16 14:53 | Emergency (ER) | payer OTHER, MEDICAID, SELFPAY ==
[2021-04-16] VITALS (7 sets, daily range): BP systolic 112–125; BP diastolic 63–78; PULSE 61–102; RESP 20–23; TEMP 36.9; O2SAT 95–99
--- NOTE | 2021-04-16 15:04 | DI.RAD.S_ITS ---
PROCEDURE: XR CHEST 1V INDICATIONS: Chest pain TECHNIQUE: One view of the chest was acquired. COMPARISON: [facility], CR, XR CHEST 2V, 03/09/2020, 19:07. FINDINGS: Surgical changes and devices: None. Lungs and pleura: Lungs are clear. No pleural effusions or pneumothorax. Mediastinum: Mediastinal contours appear normal. Heart size is normal. Bones and chest wall: No suspicious bony lesions. Overlying soft tissues appear unremarkable. IMPRESSION: No acute disease. Dictated by: Bill Avila M.D. on 04/16/2021 at 15:41 Approved by: Bill Avila M.D. on 04/16/2021 at 15:42
--- NOTE | 2021-04-16 15:36 | PC.NURSE ---
pt states she was placed on fluoxetine 20mg QD. abruptly stopped and then started again some time later without consult from her Dr. Pt highly anxious and states am i going to ? reassured pt she was safe. made aware and order for EKG and CXR. NAD. resting in bed on cardiac monitoring
--- NOTE | 2021-04-16 15:53 | ED_ITS ---
HPI - Chest Pain General Chief Complaint: Chest Pain Stated Complaint: lots of chest pain Time Seen by Provider: 04/16/21 15:03 Source: patient Mode of arrival: Ambulatory Limitations: no limitations History of Present Illness HPI narrative: Patient is a 30-year-old female with a history of anxiety. Was on fluoxetine and hydroxyzine for while but several months ago. These medications. Approximately 4 days ago she started taking the fluoxetine again. This was done after her mother stated that she was starting to have quite a bit of anxiety/PTSD issues. Around the same time as starting the fluoxetine she was having chest discomfort. Describes it on both sides of her chest. Describes it as a pressure and also a sharp sensation. Has some associated shortness of breath with. She is very anxious about the symptoms. Related Data Previous Rx's Medication Instructions Recorded vit,[id number] 1 tab PO DAILY #30 tab 01/17/20 [Prenatabs Rx] fluoxetine 40 mg capsule 40 mg PO DAILY #30 cap 12/21/20 fluticasone propionate 50 1 spray INTRANASAL DAILY PRN #9.9 12/28/20 mcg/actuation nasal ml spray,suspension pseudoephedrine HCl 30 mg tablet 60 mg PO Q4-6H PRN #14 tab 12/28/20 hydroxyzine HCl 25 mg tablet 25 mg PO BEDTIME PRN #30 tab 04/16/21 Allergies Allergy/AdvReac Type Severity Reaction Status Date / Time amoxicillin Allergy Severe Hives Verified 12/28/20 17:17 Penicillins Allergy Severe UNK Verified 12/28/20 17:17 venlafaxine AdvReac Severe loss of Verified 12/28/20 17:17 control of her eyes, visual changes, vomiting Review of Systems Constitutional Constitutional: Reports system reviewed and no additional complaints, except as documented Cardiovascular Cardiovascular: Reports chest pain and Reports dyspnea Respiratory Respiratory: Reports dyspnea Gastrointestinal Gastrointestinal: Reports system reviewed and no additional complaints, except as documented Integumentary/Breasts Skin/Breast: Reports system reviewed and no additional complaints, except as documented Neurologic Neurologic: Reports system reviewed and no additional complaints, except as documented Psychiatric Psychiatric: Reports anxiety Hematologic/Lymphatic On Anticoagulants: No Allergic/Immunologic Allergic/Immunologic: Reports system reviewed and no additional complaints, except as documented Patient History Medical History Acne Anxiety Depression Eating disorder Foot pain (2006) Surgical History Anesthesia History of surgery (1999) History of third molar tooth extraction (~2008) Status post left foot surgery (~2009) Family History Grandfather Heart attack Brother No problems noted. Brother No problems noted. Father No problems noted. Grandmother No problems noted. Grandfather No problems noted. Grandmother No problems noted. Mother No problems noted. Social History marital status: unmarried,single number of children: 1 caregiver/support person: No housing: apartment pets and animals: No education level: college occupational status: employed current occupational exposures/hazards: No seatbelt use: always helmet use: Yes water heater temp set < 120 deg: Yes working smoke detector in home: Yes fire extinguisher in home: Yes carbon monox detector in home: Yes firearms in home: No do you feel safe at home: Yes Smoking Status: Current every day smoker substance use type: does not use during the past year weight has: increased > 10 lbs well-balanced diet: about half the time daily servings fruits/ve-4 caffeine: Yes eating out: 1-3 times/week Type(s) of exercise: walking frequency: 3-4 times per week duration: decline to answer Smoking Status: Current every day smoker alcohol intake frequency: 0-2 drinks per day Substance Use Type: does not use Exam Initial Vital Signs Initial Vital Signs: Vital Signs Temperature 98.5 F 04/16/21 14:57 Pulse Rate 83 04/16/21 14:57 Respiratory Rate 20 04/16/21 14:57 Blood Pressure 125/63 04/16/21 14:57 Pulse Oximetry 99 04/16/21 14:57 Const General: cooperative Limitations: mental status not altered HENMT Head: normal to inspection and normocephalic Chest Chest: No crepitus and No tenderness Resp Effort & Inspection: normal respiratory effort Auscultation: clear to auscultation bilaterally Cardio Rate: regular rate Rhythm: regular rhythm Skin Lesions: no lesions Rashes: no rashes Neuro General: patient alert and patient awake Cognition: normal cognition Speech: speech normal Extrem General: normal to inspection and capillary refill normal Psych Appearance: well kempt Speech and Movement: restless Mood: anxious mood Course Orders Ordered: Discontinued Medications Acetaminophen (Acetaminophen 325 Mg Tablet) 650 mg PO NOW ONE Stop: 04/16/21 16:43 Last Admin: 04/16/21 16:56 Dose: 650 mg Documented by: CARLO Lorazepam (Lorazepam 0.5 Mg Tablet) 1 mg PO NOW ONE Stop: 04/16/21 15:54 Last Admin: 04/16/21 16:08 Dose: 1 mg Documented by: LAKESHIA Vital Signs Vital signs: Vital Signs - 8 hr 04/16/21 14:57 04/16/21 15:09 04/16/21 15:10 Temperature 98.5 F Pulse Rate 83 102 H Respiratory Rate 20 Blood Pressure 125/63 112/78 Pulse Oximetry 99 96 98 04/16/21 15:30 Temperature Pulse Rate 73 Respiratory Rate 21 Blood Pressure Pulse Oximetry 97 MDM - Chest Pain Imaging Data Chest x-ray: Radiologist's Impression: [address] [id number] ReportSigned Patient: Chapinctio Johnson NMR#: [id number]: 1990Acct:[id number]/Sex: 30 / FDate of Service: 04/16/21Loc: EDAccession Number: [id number] Procedure: XR chest 1V Ordering Provider: Bereket Payne D.O. PROCEDURE: XR CHEST 1V INDICATIONS: Chest pain TECHNIQUE: One view of the chest was acquired. COMPARISON: [facility], , XR CHEST 2V, 03/09/2020, 19:07. FINDINGS: Surgical changes and devices: None. Lungs and pleura: Lungs are clear. No pleural effusions or pneumothorax. Mediastinum: Mediastinal contours appear normal. Heart size is normal. Bones and chest wall: No suspicious bony lesions. Overlying soft tissues appear unremarkable. IMPRESSION: No acute disease. Dictated by: Bill Avila M.D. on 04/16/2021 at 15:41 Approved by: Bill Avila M.D. on 04/16/2021 at 15:42 ECG Data Attestation: I personally reviewed and interpreted this ECG as follows: Prior ECG tracings: not available for review Interpretation: Sinus rhythm Ventricular rate is 73 Normal axis Normal QRS Sinus arrhythmia No ST T wave changes MDM Narrative Medical decision making narrative: Chest x-ray and EKG are unremarkable. She has a normal exam other than the obvious anxiety related to the symptoms. I hav e low suspicion for ACS, pneumonia, pulmonary embolism. Have very high suspicion that her symptoms are anxiety related. She was given Ativan and she does report improvement. I provided reassurance about her symptoms and encouraged her to continue to take the fluoxetine. She was given return precautions. I feel patient can be safely discharged home without further workup. She expressed understanding and agreement. Discharge Plan Departure Patient Disposition: Home Clinical Impression: Atypical chest pain, Anxiety Instructions: DI for Atypical Chest Pain, DI for Anxiety -- Adult Activity Restrictions/Additional Instructions: I recommend that you continue with the fluoxetine. Also recommend that you keep your appointment with your primary doctor next week. Return to the emergency department for any new or worsening symptoms Prescriptions: No Action fluticasone propionate [Flonase Allergy Relief] 50 mcg/actuation spray,suspension 1 spray intranasal DAILY PRN (Reason: nasal congestion) Qty: 9.9 RF: 0 pseudoephedrine HCl [Sudafed] 30 mg tablet 60 mg PO Q4-6H PRN (Reason: nasal congestion) Qty: 14 RF: 0 fluoxetine 40 mg capsule 40 mg PO DAILY Qty: 30 RF: 2 hydroxyzine HCl 25 mg tablet 25 mg PO BEDTIME PRN (Reason: sleep) Qty: 30 RF: 1 Prenatabs Rx 29 mg iron- 1 mg Tablet 1 tab PO DAILY Qty: 30 RF: 0 Referrals: Criselda Griffin MD [Primary Care Provider] -
[2021-04-16] MEDS: LORazepam 0.5 MG TABLET 1 MG PO (16:08)
[2021-04-16] MEDS: ACETAMINOPHEN 325 MG TABLET 650 MG PO (16:56)
== END 2021-04-16 17:27 | disposition home or self-care (01) ==
PROVIDERS: Emergency Provider Emergency Medicine; PCP Family Medicine
DX: R07.89 Other chest pain (principal); F41.9 Anxiety disorder, unspecified; R06.02 Shortness of breath
CPT/HCPCS: 71045; 93005; 99284

== ENCOUNTER 2021-04-19 19:30 | Emergency (ER) | payer OTHER, MEDICAID, SELFPAY ==
[2021-04-19 19:40] VITALS: BP 127/85; PULSE 108; RESP 22; TEMP 36.7; O2SAT 99
--- NOTE | 2021-04-19 20:46 | PC.NURSE ---
Pt states she stopped taking fluoxetine @ 6 weeks ago after it increased from 20-40 mg and she did not like how it made her feel & it gave her chest discomfort. Started taking again @ 40 mg last week and it gave her chest discomfort so she stopped taking it.
--- NOTE | 2021-04-19 21:37 | ED_ITS ---
HPI - Chest Pain General Chief Complaint: Chest Pain Stated Complaint: Chest Pain, Sores in Mouth and in Throat Time Seen by Provider: 04/19/21 21:37 Source: patient Mode of arrival: Ambulatory Limitations: no limitations History of Present Illness HPI narrative: Patient is a 30-year-old female who presents with chest heaviness ongoing for about 1 week. Her fluoxetine dose has change initially was increased and then she stopped it a few days ago thinking it was causing her chest heaviness. She was seen and evaluated here 3 days ago for the same. At the time blood work was not done. She says nothing makes her pain better or worse. She denies any shortness of breath. She also noticed some white spots in the back of her throat and thinks maybe that is contributing to her chest pain. She has no fever or chills. No other sick contacts. Quality: heaviness Related Data Previous Rx's Medication Instructions Recorded fluoxetine 40 mg capsule 40 mg PO DAILY #30 cap 12/21/20 hydroxyzine HCl 25 mg tablet 25 mg PO BEDTIME PRN #30 tab 04/16/21 Allergies Allergy/AdvReac Type Severity Reaction Status Date / Time amoxicillin Allergy Severe Hives Verified 04/19/21 20:44 Penicillins Allergy Severe UNK Verified 04/19/21 20:44 venlafaxine AdvReac Severe loss of Verified 04/19/21 20:44 control of her eyes, visual changes, vomiting Review of Systems Review of Systems Narrative: GENERAL: Denies chills, fatigue, malaise, fever, sweats, travel HEENT: Denies sinus pain, ear pain, sore throat, difficulty swallowing, neck pain RESPIRATORY: Denies dyspnea, cough, wheezing, hemoptysis, sputum. CARDIOVASCULAR: See HPI GASTROINTESTINAL: Denies nausea, vomiting, abdominal pain, diarrhea, constipation, melena. : Denies dysuria, frequency, incontinence, hematuria, urinary retention, flank pain. MUSCULOSKELETAL: Denies weakness, joint pain, or bony pain SKIN: No rash, no erythema, no pruritus NEUROLOGIC: Denies weakness, dizziness, headache, numbness, change in speech, confusion PSYCHIATRIC: No concerning psychosocial issues. 12 point review of systems is negative except for those stated above and HPI Patient History Medical History (Updated 04/19/21 @ 22:51 by Chasity Toussaint DO) Acne Anxiety Depression Eating disorder Foot pain (2006) Surgical History Anesthesia History of surgery (1999) History of third molar tooth extraction (~2008) Status post left foot surgery (~2009) Family History Grandfather Heart attack Brother No problems noted. Brother No problems noted. Father No problems noted. Grandmother No problems noted. Grandfather No problems noted. Grandmother No problems noted. Mother No problems noted. Social History marital status: unmarried,single number of children: 1 caregiver/support person: No housing: apartment pets and animals: No education level: college occupational status: employed current occupational exposures/hazards: No seatbelt use: always helmet use: Yes water heater temp set < 120 deg: Yes working smoke detector in home: Yes fire extinguisher in home: Yes carbon monox detector in home: Yes firearms in home: No do you feel safe at home: Yes Smoking Status: Current every day smoker substance use type: does not use during the past year weight has: increased > 10 lbs well-balanced diet: about half the time daily servings fruits/ve-4 caffeine: Yes eating out: 1-3 times/week Type(s) of exercise: walking frequency: 3-4 times per week duration: decline to answer Smoking Status: Current every day smoker alcohol intake frequency: 0-2 drinks per day Substance Use Type: marijuana Exam Initial Vital Signs Initial Vital Signs: Vital Signs Temperature 98.1 F 04/19/21 19:40 Pulse Rate 108 H 04/19/21 19:40 Respiratory Rate 22 04/19/21 19:40 Blood Pressure 127/85 04/19/21 19:40 Pulse Oximetry 99 04/19/21 19:40 GENERAL: Well-appearing, well-nourished and in no acute distress. HEENT: Head atraumatic,EOMI, pupils reactive, face symmetric, moist mucous membranes PHARYNX: Non erythematous no cervical lymphadenopathy no uvular swelling or deviation no exudate noted CARDIOVASCULAR: Regular rate and rhythm without murmurs, rubs or gallops. RESPIRATORY: Breath sounds equal bilaterally, no wheezes rales or rhonchi. ABDOMEN: Soft, nontender. Normoactive bowel sounds all 4 quadrants. No guarding or rebound. EXTREMITIES: Normal range of motion, no clubbing or edema. Neurovascularly in tact NEUROLOGICAL: Alert and oriented x4.Normal gait and speech. SKIN: Warm, dry, no laceration, no petechiae, no rashes or lesions. Scores HEART Score Heart Score history: Slightly Suspicious Heart Score EKG: Normal Heart Score Age: < 45 years old Heart Score risk factors: No known risk factors Heart Score troponin: < or = to normal limit Heart Score Total: 0 PERC Score Age greater than or equal to 50 years: No Heart rate greater than or equal to 100 bpm: No Room Air O2 Sat less than 95%: No Unilateral leg swelling: No Recent trauma or surgery: No Hemoptysis: No Prior PE or DVT: No Hormone Use: No Total PERC Score: 0 Course Orders Ordered: ED Orders 04/19/21 21:39 EKG-12 Lead Stat 04/19/21 21:56 XR chest 1V Stat 04/19/21 22:15 Complete Blood Count AUTO DIFF Stat Comprehensive Metabolic Panel Stat Lipase Stat Troponin & CK Cardiac Panel Stat Vital Signs Vital signs: Vital Signs - 8 hr 04/19/21 19:40 04/19/21 22:57 Temperature 98.1 F Pulse Rate 108 H 71 Respiratory Rate 22 16 Blood Pressure 127/85 149/69 H Pulse Oximetry 99 98 MDM - Chest Pain Lab Data Attestation: I reviewed the patient's lab results. Result diagrams: 04/19/21 22:15 04/19/21 22:15 Labs: Lab Results 04/19/21 04/19/21 Range/Units 22:15 22:15 WBC 12.6 H (4.5-11.0) X10^3/uL RBC 4.00 (4.0-5.2) X10^6/uL Hgb 13.1 (12.0-16.0) g/dL Hct 39.0 (36-46) % MCV 97.6 (80-100) fL MCH 32.6 (26-34) PG MCHC 33.5 (30-36) % RDW 13.6 (11.6-14.8) % Plt Count 294 (150-400) X10^3/uL Neut % (Auto) 69.7 (50-75) % Lymph % (Auto) 23.6 L (25-40) % [place] % (Auto) 4.7 (3-14) % Eos % (Auto) 1.6 L (2-4) % Baso % (Auto) 0.4 (0-2) % Neut # (Auto) 8800 H (2275-2538) /uL Lymph # (Auto) 3000 (9921-2765) /uL [place] # (Auto) 600 (0-900) /uL Eos # (Auto) 200 (0-450) /uL Baso # (Auto) 100 (0-100) /uL Sodium 137 (137-145) mmol/L Potassium 4.5 (3.4-5.1) mmol/L Chloride 105 (98-107) mmol/L Carbon Dioxide 26 (22-32) mmol/L BUN 13 (7-17) mg/dL Creatinine 0.84 (0.52-1.04) mg/dL Estimated GFR > 60.0 (>60) mL/min BUN/Creatinine Ratio 15.5 (6-22) Glucose 94 (70-100) mg/dL Calcium 9.1 (8.4-10.2) mg/dL Total Bilirubin 0.1 L (0.2-1.3) mg/dL AST 25 (14-36) IU/L ALT 17 (<35) IU/L Alkaline Phosphatase 83 (38-126) U/L Total Creatine Kinase 57 (30-135) U/L CK-MB (CK-2) TNP CK-MB (CK-2) Rel Index TNP Troponin I < 0.012 (0.01-0.034) ng/mL Total Protein 7.1 (6.3-8.2) g/dL Albumin 4.4 (3.5-5.0) g/dL Globulin 2.7 (1.7-4.1) g/dL Albumin/Globulin Ratio 1.6 (1.0-2.8) Lipase 95 (23-300) U/L Point of Care Testing Test Results Negative Rapid Strep A Negative Urine Dip Bedside Urine Glucose Negative Bedside Urine Bilirubin - Negative Bedside Urine Ketone - Negative Urine Specific [place] 1.015 Bedside Urine Occult Blood - Negative Bedside Urine pH 7.5 Bedside Urine Protein - Negative Bedside Urine Urobilinogen - Negative Bedside Urine Nitrite - Negative Bedside Urine Leukocytes - Negative Esterase Imaging Data Chest x-ray: Attestation: I personally reviewed and interpreted this imaging study as keshav esquivel: My Impression: No acute cardiopulmonary process Radiologist's Impression: Preliminary report No significant abnormalities ECG Data Attestation: I personally reviewed and interpreted this ECG as follows: Prior ECG tracings: available for review Interpretation: Normal sinus rhythm rate 77 p.r. interval 108 QRS [address] changes or T-wave inversions MDM Narrative Medical decision making narrative: The patient is having chest heaviness ongoing for a number of days no shortness of breath palpitations. EKG blood work overall reassuring. She is low risk heart score. Symptoms may or may not be related to fluoxetine and dosage. Discharge Plan Departure Patient Disposition: Home Clinical Impression: Atypical chest pain Instructions: DI for Atypical Chest Pain Activity Restrictions/Additional Instructions: *You have been diagnosed with atypical chest pain *What to do: At this time blood work EKG and x-ray are overall reassuring. You do not have strep. Please talk with your primary care provider about her fluoxetine dose in stopping. *Continue to take medications as directed *Follow up with your primary care provider in 2-3 days *Return to ER if you should have increasing chest pain shortness of breath fever chills or any new, worsening or concerning symptoms Prescriptions: No Action fluoxetine 40 mg capsule 40 mg PO DAILY Qty: 30 RF: 2 hydroxyzine HCl 25 mg tablet 25 mg PO BEDTIME PRN (Reason: sleep) Qty: 30 RF: 1 Referrals: Criselda Griffin MD [Primary Care Provider] -
--- NOTE | 2021-04-19 21:56 | DI.RAD.S_ITS ---
PROCEDURE: XR CHEST 1V INDICATIONS: chest pain TECHNIQUE: One view of the chest was acquired. COMPARISON: [facility], CR, XR CHEST 2V, 08/10/2019, 17:27. [facility], CR, XR CHEST 1V, 04/16/2021, 15:06. [facility], CR, XR CHEST 2V, 03/09/2020, 19:07. FINDINGS: Surgical changes and devices: None. Lungs and pleura: Lungs are clear. No pleural effusions or pneumothorax. Mediastinum: Mediastinal contours appear normal. Heart size is normal. Bones and chest wall: No suspicious bony lesions. Overlying soft tissues appear unremarkable. IMPRESSION: Normal portable chest. Note: No significant discrepancy from the preliminary report. Dictated by: Arron Kearney M.D. on 04/20/2021 at 9:59 Approved by: Arron Kearney M.D. on 04/20/2021 at 10:00
[2021-04-19 22:28] LABS: Add Manual Diff / Slide Review NO; Basophils Absolute Auto 100 /uL (0-100); Basophils Percent Auto 0.4 % (0-2); Eosinophils Absolute Auto 200 /uL (0-450); Eosinophils Percent Auto 1.6 % (2-4); Hemoglobin 13.1 g/dL (12.0-16.0); Lymphocytes Absolute Auto 3000 /uL (1100-4500); Lymphocytes Percent Auto 23.6 % (25-40); Mean Corpuscular HGB Conc 33.5 % (30-36); Mean Corpuscular Hemoglobin 32.6 PG (26-34); Mean Corpuscular Volume 97.6 fL (80-100); Monocytes Absolute Auto 600 /uL (0-900); Monocytes Percent Auto 4.7 % (3-14); Neutrophils Absolute Auto 8800 /uL (1500-7000); Neutrophils Percent Auto 69.7 % (50-75); Platelet Count 294 X10^3/uL (150-400); Red Cell Distribution Width 13.6 % (11.6-14.8); White Blood Cell Count 12.6 X10^3/uL (4.5-11.0)
[2021-04-19 22:35] LABS: Alanine Aminotransferase 17 IU/L (<35); Albumin 4.4 g/dL (3.5-5.0); Albumin Globulin Ratio 1.6 (1.0-2.8); Alkaline Phosphatase 83 U/L (38-126); Aspartate Aminotransferase 25 IU/L (14-36); BUN Creatinine Ratio 15.5 (6-22); Bilirubin Total 0.1 mg/dL (0.2-1.3); Blood Urea Nitrogen 13 mg/dL (7-17); Calcium 9.1 mg/dL (8.4-10.2); Carbon Dioxide 26 mmol/L (22-32); Chloride 105 mmol/L (98-107); Creatine Kinase 57 U/L (30-135); Estimated Glomerular Filt Rate > 60.0 mL/min (>60); Globulin 2.7 g/dL (1.7-4.1); Glucose 94 mg/dL (70-100); HEMOLYSIS < 15 (0-50); Lipase 95 U/L (23-300); Potassium 4.5 mmol/L (3.4-5.1); Sodium 137 mmol/L (137-145); Total Protein 7.1 g/dL (6.3-8.2)
[2021-04-19 22:47] LABS: Troponin I < 0.012 ng/mL (0.01-0.034)
[2021-04-19 22:57] VITALS: BP 149/69; PULSE 71; RESP 16; O2SAT 98
== END 2021-04-19 22:57 | disposition home or self-care (01) ==
PROVIDERS: Emergency Provider Emergency Medicine; PCP Family Medicine
DX: R07.89 Other chest pain (principal); Z36.85 Encounter for antenatal screening for Streptococcus B
CPT/HCPCS: 36415; 71045; 80053; 81003; 81025; 82550; 83690; 84484; 85025; 87880; 93005; 99284

== ENCOUNTER 2021-04-24 16:37 | Emergency (ER) | payer OTHER, MEDICAID, SELFPAY ==
[2021-04-24 16:44] VITALS: BP 119/75; PULSE 88; RESP 14; TEMP 37; O2SAT 97; BMI 28.3
[2021-04-24 17:16] LABS: Appearance Urine UA CLEAR; Bilirubin Urine UA NEGATIVE (NEGATIVE); Color Urine UA YELLOW; Glucose Urine UA TRACE g/dL (Negative); Ketones Urine UA NEGATIVE (NEGATIVE); Leukocyte Esterase Urine UA NEGATIVE (NEGATIVE); Nitrite Urine UA NEGATIVE (Negative); Occult Blood Urine UA 3+ (Negative); Protein Urine UA NEGATIVE (Negative); Urobilinogen Urine UA 0.2 E.U./dL (0.2)
[2021-04-24 17:23] LABS: pH Urine UA 6.5 (4.5-8.0)
[2021-04-24 17:29] LABS: Pregnancy Test Urine Negative (Negative)
[2021-04-24 17:59] LABS: Amorphous Sediment Urine 1+; Bacteria Urine Occasional (0-1); Culture Indicated Urine Cult Not Indicated; RBC Urine 1-5/HPF (0-5/HPF); Squamous Epithelial Cell Urine 1-5 /HPF (0-5/HPF); WBC Urine 0-1/HPF (0-5/HPF)
[2021-04-24 19:20] LABS: Urine Chlamydia NOT DETECTED; Urine N gonorrhoeae NOT DETECTED
--- NOTE | 2021-04-24 19:55 | ED_ITS ---
HPI - Female Genitourinary General Chief complaint: Abdominal Pain Stated complaint: sent from [facility], possible eptopic preg Time Seen by Provider: 04/24/21 17:31 Source: patient Mode of arrival: Ambulatory Limitations: no limitations History of Present Illness HPI Narrative: Patient concerned for . Patient is . Status post . Most recently 1 year ago. Patient is breast feeding. Patient also states she is very irregular with her periods, at times in her life she has gone 1 full year without a period. Patient seen at urgent care today had negative urine test. First menses complaint was 6 weeks ago. Had another 2 weeks ago. And then started another 1 today. Similar to past menses. Patient denies any nausea vomiting abdominal pain pelvic pain. No syncope or dizziness or dyspnea. No prior history anemia. No urinary complaints. At this time, patient agrees no indication for pelvic ultrasound. Does agree with blood work. Patient was seen by Dr. Ibrahim, last year here for delivery of the baby. Denies any vaginal discharge Related Data Previous Rx's Medication Instructions Recorded fluoxetine 40 mg capsule 40 mg PO DAILY #30 cap 12/21/20 hydroxyzine HCl 25 mg tablet 25 mg PO BEDTIME PRN #30 tab 04/16/21 Allergies Allergy/AdvReac Type Severity Reaction Status Date / Time amoxicillin Allergy Severe Hives Verified 04/24/21 16:47 Penicillins Allergy Severe UNK Verified 04/24/21 16:47 venlafaxine AdvReac Severe loss of Verified 04/24/21 16:47 control of her eyes, visual changes, vomiting Review of Systems Review of Systems Narrative: GENERAL: Denies chills, fatigue, malaise, fever, sweats. HEENT: Denies sinus pain, ear pain, sore throat RESPIRATORY: Denies dyspnea, cough CARDIOVASCULAR: Denies chest pain, palpitations, no syncope GASTROINTESTINAL: Denies nausea, vomiting, abdominal pain : Denies dysuria, frequency, hematuria, complains of vaginal bleeding, no pelvic pain, no back pain MUSCULOSKELETAL: denies muscle or bony pain SKIN: Denies rash, skin lesions NEUROLOGIC: Denies weakness, numbness, no dizziness ROS Unobtainable: All systems reviewed & are unremarkable except as noted in HPI and below Patient History Medical History (Updated 04/24/21 @ 20:52 by Jd Bal MD) Acne Anxiety Depression Eating disorder Foot pain (2006) Surgical History Anesthesia History of surgery (1999) History of third molar tooth extraction (~2008) Status post left foot surgery (~2009) Family History Grandfather Heart attack Brother No problems noted. Brother No problems noted. Father No problems noted. Grandmother No problems noted. Grandfather No problems noted. Grandmother No problems noted. Mother No problems noted. alcohol intake frequency: holidays/special occasions only Substance Use Type: marijuana Exam Narrative Exam Narrative: GENERAL: in no distress, not toxic not dyspneic HEAD: Normocephalic. EYES: Pupils equal round No scleral icterus. No injection no discharge, no pelvic conjunctivae ENT: Mucous membranes moist. NECK: Trachea midline. CARDIOVASCULAR: Regular rate and rhythm without murmurs RESPIRATORY: Clear to auscultation. Breath sounds equal bilaterally. No wheezes, rales, or rhonchi. GASTROINTESTINAL: Abdomen soft, non-tender EXTREMITIES: No gross deformities. BACK: No flank tenderness. NEURO: AOx4. SKIN: Warm and dry PSYCH: Not anxious, is cooperative Initial Vital Signs Initial Vital Signs: Vital Signs Temperature 98.6 F 04/24/21 16:44 Pulse Rate 88 04/24/21 16:44 Respiratory Rate 14 04/24/21 16:44 Blood Pressure 119/75 04/24/21 16:44 Pulse Oximetry 97 04/24/21 16:44 Course Course Course Narrative: No new issues during course of stay Orders Ordered: ED Orders 04/24/21 20:07 Complete Blood Count AUTO DIFF Stat Partial Thromboplastin Time Stat Test Serum,Qual Stat Prothrombin Time INR Stat Reevaluation(s) Reevaluation #1: Reviewed results with patient. She does not want a pelvic exam. Does not any swabs. She agrees with treatment plan and follow-up with primary care or OBGYN Time: 20:54 Vital Signs Vital signs: Vital Signs - 8 hr 04/24/21 21:09 04/24/21 21:16 Pulse Rate 82 62 Respiratory Rate 16 Blood Pressure 89/51 L 101/66 Pulse Oximetry 97 98 MDM - Female Genitourinary Differential Diagnosis Differential diagnosis: Likely other (Dysfunctional uterine bleeding) Medical Records Attestation: I reviewed the patient's medical records. Lab Data Attestation: I reviewed the patient's lab results. Result diagrams: 04/24/21 20:07 Labs: Lab Results 04/24/21 04/24/21 04/24/21 Range/Units 17:12 17:12 17:14 WBC (4.5-11.0) X10^3/uL RBC (4.0-5.2) X10^6/uL Hgb (12.0-16.0) g/dL Hct (36-46) % MCV (80-100) fL MCH (26-34) PG MCHC (30-36) % RDW (11.6-14.8) % Plt Count (150-400) X10^3/uL Neut % (Auto) (50-75) % Lymph % (Auto) (25-40) % [place] % (Auto) (3-14) % Eos % (Auto) (2-4) % Baso % (Auto) (0-2) % Neut # (Auto) (1516-6633) /uL Lymph # (Auto) (6986-6600) /uL [place] # (Auto) (0-900) /uL Eos # (Auto) (0-450) /uL Baso # (Auto) (0-100) /uL PT (10.1-12.7) SECONDS INR (0.9-1.3) APTT (26.4-36.2) SECONDS Serum , Qual (Negative) Urine Color Yellow Urine Appearance Clear Urine pH 6.5 (4.5-8.0) Ur Specific [place] 1.020 (1.000-1.035) Urine Protein Negative (Negative) Urine Glucose (UA) Trace H (Negative) g/dL Urine Ketones Negative (NEGATIVE) Urine Occult Blood 3+ H (Negative) Urine Nitrate Negative (Negative) Urine Bilirubin Negative (NEGATIVE) Urine Urobilinogen 0.2 (0.2) E.U./dL Ur Leukocyte Esterase Negative (NEGATIVE) Urine RBC 1-5/hpf (0-5/HPF) Urine WBC 0-1/hpf (0-5/HPF) Ur Squamous Epith Cells 1-5 /hpf (0-5/HPF) Amorphous Sediment 1+ Urine Bacteria Occasional (0-1) (None) Ur Culture Indicated? Cult not indicated Urine Test Negative (Negative) Ur Chlamydia DNA (PCR) Not detected N gonorrhoeae DNA (PCR) Not detected 04/24/21 04/24/21 04/24/21 Range/Units 20:07 20:07 20:07 WBC 8.3 (4.5-11.0) X10^3/uL RBC 3.80 L (4.0-5.2) X10^6/uL Hgb 12.6 (12.0-16.0) g/dL Hct 37.1 (36-46) % MCV 97.7 (80-100) fL MCH 33.2 (26-34) PG MCHC 34.0 (30-36) % RDW 13.8 (11.6-14.8) % Plt Count 252 (150-400) X10^3/uL Neut % (Auto) 61.6 (50-75) % Lymph % (Auto) 27.6 (25-40) % [place] % (Auto) 6.5 (3-14) % Eos % (Auto) 3.7 (2-4) % Baso % (Auto) 0.6 (0-2) % Neut # (Auto) 5100 (1238-2963) /uL Lymph # (Auto) 2300 (4485-5678) /uL [place] # (Auto) 500 (0-900) /uL Eos # (Auto) 300 (0-450) /uL Baso # (Auto) 100 (0-100) /uL PT 10.8 (10.1-12.7) SECONDS INR 1.0 (0.9-1.3) APTT 31 (26.4-36.2) SECONDS Serum , Qual Negative (Negative) Urine Color Urine Appearance Urine pH (4.5-8.0) Ur Specific [place] (1.000-1.035) Urine Protein (Negative) Urine Glucose (UA) (Negative) g/dL Urine Ketones (NEGATIVE) Urine Occult Blood (Negative) Urine Nitrate (Negative) Urine Bilirubin (NEGATIVE) Urine Urobilinogen (0.2) E.U./dL Ur Leukocyte Esterase (NEGATIVE) Urine RBC (0-5/HPF) Urine WBC (0-5/HPF) Ur Squamous Epith Cells (0-5/HPF) Amorphous Sediment Urine Bacteria (None) Ur Culture Indicated? Urine Test (Negative) Ur Chlamydia DNA (PCR) N gonorrhoeae DNA (PCR) MDM Narrative Medical decision making narrative: Appropriate for discharge home. Exam and laboratory studies are reassuring. Likely dysfunctional uterine bleeding. Patient saw Dr. Ibrahim last year. Will refer patient back to same office for a office follow-up. No vaginal discharge. No indication for pelvic swab at this time. Patient is not want pelvic swab. Discharge Plan Departure Patient Disposition: Home Clinical Impression: DUB (dysfunctional uterine bleeding) Instructions: DI for Abnormal Uterine Bleeding Activity Restrictions/Additional Instructions: See family doctor or call provided OBGYN office tomorrow for office recheck next week. No sexual activity until seen by the office. Return if worse if any questions or concerns. Prescriptions: No Action fluoxetine 40 mg capsule 40 mg PO DAILY Qty: 30 RF: 2 hydroxyzine HCl 25 mg tablet 25 mg PO BEDTIME PRN (Reason: sleep) Qty: 30 RF: 1 Referrals: Tiara Sandhu MD [Physician] - Criselda Griffin MD [Primary Care Provider] -
[2021-04-24 20:15] LABS: Add Manual Diff / Slide Review NO; Basophils Absolute Auto 100 /uL (0-100); Basophils Percent Auto 0.6 % (0-2); Eosinophils Absolute Auto 300 /uL (0-450); Eosinophils Percent Auto 3.7 % (2-4); Hematocrit 37.1 % (36-46); Hemoglobin 12.6 g/dL (12.0-16.0); Lymphocytes Absolute Auto 2300 /uL (1100-4500); Lymphocytes Percent Auto 27.6 % (25-40); Mean Corpuscular Hemoglobin 33.2 PG (26-34); Mean Corpuscular Volume 97.7 fL (80-100); Monocytes Absolute Auto 500 /uL (0-900); Monocytes Percent Auto 6.5 % (3-14); Neutrophils Absolute Auto 5100 /uL (1500-7000); Neutrophils Percent Auto 61.6 % (50-75); Platelet Count 252 X10^3/uL (150-400); Red Cell Distribution Width 13.8 % (11.6-14.8); White Blood Cell Count 8.3 X10^3/uL (4.5-11.0)
[2021-04-24 20:21] LABS: Prothrombin Time 10.8 SECONDS (10.1-12.7)
[2021-04-24 20:24] LABS: PTT Partial Thromboplastin Tim 31 SECONDS (26.4-36.2)
[2021-04-24 20:44] LABS: Pregnancy Test Serum,Qual Negative (Negative)
[2021-04-24 21:09] VITALS: BP 89/51; PULSE 82; RESP 16; O2SAT 97
[2021-04-24 21:16] VITALS: BP 101/66; PULSE 62; O2SAT 98
== END 2021-04-24 21:27 | disposition home or self-care (01) ==
PROVIDERS: Emergency Medicine; Emergency Provider Emergency Medicine; PCP Family Medicine
DX: N93.8 Other specified abnormal uterine and vaginal bleeding (principal)
CPT/HCPCS: 36415; 81001; 81025; 84703; 85025; 85610; 85730; 87491; 87591; 99282; 99283

== ENCOUNTER 2021-04-25 17:05 | Emergency (ER) | payer OTHER, MEDICAID, SELFPAY ==
[2021-04-25 17:41] VITALS: BP 111/72; PULSE 85; RESP 14; TEMP 37.2; O2SAT 96; BMI 28.3
--- NOTE | 2021-04-25 18:38 | ED_ITS ---
HPI - Abdominal Pain General Chief Complaint: Abdominal Pain Stated Complaint: abd pain, chest pain, low BP Time Seen by Provider: 04/25/21 18:31 Source: patient Mode of arrival: Ambulatory Limitations: no limitations History of Present Illness HPI narrative: 30F nonsmoker with history of PTSD, lightheadedness, 1 year ago, depression, anxiety presents with the chief complaint of upper chest pain under her clavicles bilaterally moving down along her sternum for the past few weeks to months. She states the pain seems to be worse with motion and improves with rest. She states that it is achy and sharp in nature. She denies any injury, cough, hemoptysis, travel, history of blood clot. She has been seen multiple times in the past and has had reassuring EKGs and chest x-rays. Additionally she states that she has been having some discomfort at her C- section scar as well as some abnormal vaginal bleeding for the past 6 days. She denies any other discharge. She denies any dysuria, frequency or urgency. She has no fever or chills. She states she attempted to get in with her primary care doctor earlier today but was unable to get enhance her visit to us Related Data Previous Rx's Medication Instructions Recorded fluoxetine 40 mg capsule 40 mg PO DAILY #30 cap 12/21/20 hydroxyzine HCl 25 mg tablet 25 mg PO BEDTIME PRN #30 tab 04/16/21 Allergies Allergy/AdvReac Type Severity Reaction Status Date / Time amoxicillin Allergy Severe Hives Verified 04/25/21 17:41 Penicillins Allergy Severe UNK Verified 04/25/21 17:41 venlafaxine AdvReac Severe loss of Verified 04/25/21 17:41 control of her eyes, visual changes, vomiting Review of Systems Constitutional Constitutional: Denies chills, Denies fatigue, Denies fever(s), Denies frequent falls, Denies lethargy and Denies weakness Eyes Eyes: Denies change in vision, Denies eye discharge, Denies irritation and Denies loss of vision ENT Ears, Nose, Mouth, and Throat: Denies change in voice, Denies dizziness, Denies neck pain, Denies sore throat and Denies throat swelling Cardiovascular Cardiovascular: Reports chest pain, Denies irregular heart rhythm, Denies lightheadedness, Denies palpitations, Denies dyspnea, Denies dyspnea on exertion and Denies orthopnea Respiratory Respiratory: Denies cough, Denies dyspnea, Denies dyspnea on exertion and Denies wheezing Gastrointestinal Gastrointestinal: Reports abdominal pain, Denies change in bowel habits, Denies diarrhea, Denies nausea and Denies vomiting Genitourinary Genitourinary: Reports abnormal vaginal bleeding Musculoskeletal Musculoskeletal: Denies neck pain and Denies numbness Integumentary/Breasts Skin/Breast: Denies pruritus, Denies erythema, Denies rash and Denies wounds Neurologic Neurologic: Denies behavioral changes, Denies confusion, Denies dizziness, Denies frequent falls, Denies loss of vision, Denies numbness and Denies weak ness Psychiatric Psychiatric: Denies anxiety, Denies behavioral changes, Denies confusion, Denies depression, Denies homicidal ideation and Denies suicidal ideation Endocrine Endocrine: Denies fatigue, Denies flushing and Denies palpitations Hematologic/Lymphatic Hematologic/Lymphatic: Denies easy bruising Allergic/Immunologic Allergic/Immunologic: Denies urticaria, Denies throat swelling and Denies wheezing Patient History Medical History Acne Anxiety Depression Eating disorder Foot pain (2006) Surgical History Anesthesia History of surgery (1999) History of third molar tooth extraction (~2008) Status post left foot surgery (~2009) Family History Grandfather Heart attack Brother No problems noted. Brother No problems noted. Father No problems noted. Grandmother No problems noted. Grandfather No problems noted. Grandmother No problems noted. Mother No problems noted. Social History marital status: unmarried,single number of children: 1 caregiver/support person: No housing: apartment pets and animals: No education level: college occupational status: employed current occupational exposures/hazards: No seatbelt use: always helmet use: Yes water heater temp set < 120 deg: Yes working smoke detector in home: Yes fire extinguisher in home: Yes carbon monox detector in home: Yes firearms in home: No do you feel safe at home: Yes Smoking Status: Current every day smoker substance use type: does not use during the past year weight has: increased > 10 lbs well-balanced diet: about half the time daily servings fruits/ve-4 caffeine: Yes eating out: 1-3 times/week Type(s) of exercise: walking frequency: 3-4 times per week duration: decline to answer Smoking Status: Current every day smoker alcohol intake frequency: holidays/special occasions only Substance Use Type: marijuana Exam Narrative Exam Narrative: GENERAL: [30] year old patient appears stated age. Well-nourish ed, well-developed patient, in mild distress. HEAD: Atraumatic. Normocephalic. EYES: Pupils equal round and reactive. Extraocular motions intact. No scleral icterus. No injection or drainage. ENT: Nose without bleeding, purulent drainage. Throat without erythema, tonsillar hypertrophy or exudate. Airway patent. NECK: Trachea midline. Non tender CARDIOVASCULAR: Regular rate and rhythm without murmurs, gallops, or rubs. Mild tenderness to palpation along anterior chest RESPIRATORY: Clear to auscultation. Breath sounds equal bilaterally. No wheezes, rales, or rhonchi. GASTROINTESTINAL: Abdomen soft, non-tender, nondistended. Incision is clean, dry and intact, no dehiscence, erythema or significant pain on palpation EXTREMITIES: No edema or joint tenderness. BACK: Nontender without deformity or crepitance. No flank tenderness. NEURO: AOx3. SKIN: No rash or erythema of visible areas Initial Vital Signs Initial Vital Signs: Vital Signs Temperature 98.9 F 04/25/21 17:41 Pulse Rate 85 04/25/21 17:41 Respiratory Rate 14 04/25/21 17:41 Blood Pressure 111/72 04/25/21 17:41 Pulse Oximetry 96 04/25/21 17:41 Course Orders Ordered: ED Orders 04/25/21 18:33 EKG-12 Lead Stat 04/25/21 18:39 US pelvic complete Stat XR chest 1V Stat 04/25/21 18:49 Complete Blood Count AUTO DIFF Stat Comprehensive Metabolic Panel Stat Lipase Stat Magnesium Stat Troponin & CK Cardiac Panel Stat 04/25/21 19:36 Urine Microscopic Stat Discontinued Medications Sodium Chloride (Normal Saline 0.9%) 1,000 mls @ 125 mls/hr IV CONT JAYME Last Admin: 04/25/21 19:06 Dose: 125 mls/hr Documented by: [email or web address] Vital Signs Vital signs: Vital Signs - 8 hr 04/25/21 17:41 04/25/21 19:11 04/25/21 20:47 Temperature 98.9 F Pulse Rate 85 72 71 Respiratory Rate 14 16 16 Blood Pressure 111/72 110/66 110/68 Pulse Oximetry 96 99 98 MDM - Abdominal Pain Lab Data Result diagrams: 04/25/21 18:49 04/25/21 18:49 Labs: Lab Results 04/25/21 04/25/21 04/25/21 Range/Units 18:49 18:49 19:36 WBC 8.3 (4.5-11.0) X10^3/uL RBC 3.85 L (4.0-5.2) X10^6/uL Hgb 12.7 (12.0-16.0) g/dL Hct 37.6 (36-46) % MCV 97.9 (80-100) fL MCH 32.9 (26-34) PG MCHC 33.7 (30-36) % RDW 13.6 (11.6-14.8) % Plt Count 235 (150-400) X10^3/uL Neut % (Auto) 62.7 (50-75) % Lymph % (Auto) 27.4 (25-40) % [place] % (Auto) 5.9 (3-14) % Eos % (Auto) 3.5 (2-4) % Baso % (Auto) 0.5 (0-2) % Neut # (Auto) 5200 (4284-5370) /uL Lymph # (Auto) 2300 (5296-7603) /uL [place] # (Auto) 500 (0-900) /uL Eos # (Auto) 300 (0-450) /uL Baso # (Auto) 0 (0-100) /uL Sodium 136 L (137-145) mmol/L Potassium 4.4 (3.4-5.1) mmol/L Chloride 106 (98-107) mmol/L Carbon Dioxide 25 (22-32) mmol/L BUN 9 (7-17) mg/dL Creatinine 0.73 (0.52-1.04) mg/dL Estimated GFR > 60.0 (>60) mL/min BUN/Creatinine Ratio 12.3 (6-22) Glucose 100 (70-100) mg/dL Calcium 9.2 (8.4-10.2) mg/dL Magnesium 2.0 (1.6-2.3) mg/dL Total Bilirubin 0.2 (0.2-1.3) mg/dL AST 24 (14-36) IU/L ALT 16 (<35) IU/L Alkaline Phosphatase 58 (38-126) U/L Total Creatine Kinase 93 (30-135) U/L CK-MB (CK-2) TNP CK-MB (CK-2) Rel Index TNP Troponin I < 0.012 (0.01-0.034) ng/mL Total Protein 6.8 (6.3-8.2) g/dL Albumin 4.1 (3.5-5.0) g/dL Globulin 2.7 (1.7-4.1) g/dL Albumin/Globulin Ratio 1.5 (1.0-2.8) Lipase 66 (23-300) U/L Urine RBC 1-5/hpf (0-5/HPF) Urine WBC 0-1/hpf (0-5/HPF) Ur Squamous Epith Cells 1-5 /hpf (0-5/HPF) Amorphous Sediment 1+ Urine Bacteria None seen (None) Urine Mucus 1+ H (Negative) Ur Culture Indicated? Cult not indicated Point of care testing: Urine Dip Bedside Urine Glucose Negative Bedside Urine Bilirubin - Negative Bedside Urine Ketone - Negative Urine Specific [place] 1.025 Bedside Urine Occult Blood ++ Bedside Urine pH 6.5 Bedside Urine Protein - Negative Bedside Urine Urobilinogen - Negative Bedside Urine Nitrite - Negative Bedside Urine Leukocytes - Negative Esterase Imaging Data US - TRAFFIC MONITOR SPECIALIST: Radiologist's Impression: [address] [id number] ReportSigned Patient: [place]ito Johnson [facility]#: [id number]: 1990Acct:[id number]/Sex: 30 / FDate of Service: 04/25/21Loc: EDAccession Number: [id number] Procedure: US pelvic complete Ordering Provider: Casimiro García D.O. PROCEDURE: US PELVIC LIMITED INDICATIONS: pelvic pain, bleeding TECHNIQUE: Real-time transabdominal scanning was performed of the pelvic organs, with image documentation. COMPARISON: None. FINDINGS: Uterus: Uterus is normal in size at 7.3 x 3.6 x 5.6 cm. Endometrium measures 6.3 mm in combined thickness. Ovaries: Within normal limits bilaterally with multiple bilateral normal appearing follicles Other: No free pelvic fluid. IMPRESSION: Negative pelvic ultrasound. Dictated by: Jl Baeza M.D. on 04/25/2021 at 19:36 Approved by: Jl Baeza M.D. on 04/25/2021 at 19:37 MDM Narrative Medical decision making narrative: Multiple etiologies for patient's symptoms considered including: [Pneumonia versus pneumothorax versus costochondritis versus pericarditis versus pneumonia versus other] Patient's symptoms improved over duration of stay with above-stated therapies. Findings and discharge diagnosis discussed with patient/family followed by verbalization of understanding Return precautions discussed with patient/family whom verbalize understanding. Discharge Plan Departure Patient Disposition: Home Clinical Impression: Atypical chest pain, Abnormal vaginal bleeding Instructions: DI for Vaginal Bleeding Activity Restrictions/Additional Instructions: *You have been diagnosed with [chronic chest pain with very reassuring labs, EKG and chest x-ray. Abnormal vaginal bleeding with reassuring labs and ult rasound] *What to do: *Please continue to take your regular medications as directed. [ ] New medication prescriptions sent to your pharmacy: [ ] [ ] New medication written as a paper prescription [ x] No new medications given *Please follow up with your primary care provider in 2-3 days, call for an appointment. Let them know you were seen in the Emergency Department and that we ask that you be seen in follow up. We will electronically transmit a record of today's note if your PCP is in our system *If you do not have a primary care provider please contact the [facility] Resource line at [phone]. They will ask some questions about your medical history and help get you set up with a doctor in the community. *Return to Emergency Department if you should have any new, worsening or concerning symptoms, such as [fever greater than 101 F, shaking chills, worsening pain, persistent vomiting or other bothersome symptoms] Prescriptions: No Action fluoxetine 40 mg capsule 40 mg PO DAILY Qty: 30 RF: 2 hydroxyzine HCl 25 mg tablet 25 mg PO BEDTIME PRN (Reason: sleep) Qty: 30 RF: 1 Referrals: Criselda Griffin MD [Primary Care Provider] -
--- NOTE | 2021-04-25 18:39 | DI.RAD.S_ITS ---
PROCEDURE: XR CHEST 1V INDICATIONS: pain, heaviness TECHNIQUE: One view of the chest was acquired. COMPARISON: [facility], CR, XR CHEST 1V, 04/19/2021, 22:06. FINDINGS: Surgical changes and devices: None. Lungs and pleura: Lungs are clear. No pleural effusions or pneumothorax. Mediastinum: Mediastinal contours appear normal. Heart size is normal. Bones and chest wall: No suspicious bony lesions. Overlying soft tissues appear unremarkable. IMPRESSION: No acute process. Dictated by: Jl Baeza M.D. on 04/25/2021 at 19:28 Approved by: Jl Baeza M.D. on 04/25/2021 at 19:29
[2021-04-25 18:57] LABS: Add Manual Diff / Slide Review NO; Basophils Absolute Auto 0 /uL (0-100); Basophils Percent Auto 0.5 % (0-2); Eosinophils Absolute Auto 300 /uL (0-450); Eosinophils Percent Auto 3.5 % (2-4); Hematocrit 37.6 % (36-46); Hemoglobin 12.7 g/dL (12.0-16.0); Lymphocytes Absolute Auto 2300 /uL (1100-4500); Lymphocytes Percent Auto 27.4 % (25-40); Mean Corpuscular HGB Conc 33.7 % (30-36); Mean Corpuscular Hemoglobin 32.9 PG (26-34); Mean Corpuscular Volume 97.9 fL (80-100); Monocytes Absolute Auto 500 /uL (0-900); Monocytes Percent Auto 5.9 % (3-14); Neutrophils Absolute Auto 5200 /uL (1500-7000); Neutrophils Percent Auto 62.7 % (50-75); Platelet Count 235 X10^3/uL (150-400); Red Blood Cell Count 3.85 X10^6/uL (4.0-5.2); Red Cell Distribution Width 13.6 % (11.6-14.8); White Blood Cell Count 8.3 X10^3/uL (4.5-11.0)
[2021-04-25] MEDS: SODIUM CHLORIDE 0.9% 1,000 ML 125 ML IV (19:06)
[2021-04-25 19:11] VITALS: BP 110/66; PULSE 72; RESP 16; O2SAT 99
[2021-04-25 19:13] LABS: Alanine Aminotransferase 16 IU/L (<35); Albumin 4.1 g/dL (3.5-5.0); Albumin Globulin Ratio 1.5 (1.0-2.8); Alkaline Phosphatase 58 U/L (38-126); Aspartate Aminotransferase 24 IU/L (14-36); BUN Creatinine Ratio 12.3 (6-22); Bilirubin Total 0.2 mg/dL (0.2-1.3); Blood Urea Nitrogen 9 mg/dL (7-17); Calcium 9.2 mg/dL (8.4-10.2); Carbon Dioxide 25 mmol/L (22-32); Chloride 106 mmol/L (98-107); Creatine Kinase 93 U/L (30-135); Estimated Glomerular Filt Rate > 60.0 mL/min (>60); Globulin 2.7 g/dL (1.7-4.1); Glucose 100 mg/dL (70-100); HEMOLYSIS < 15 (0-50); Lipase 66 U/L (23-300); Potassium 4.4 mmol/L (3.4-5.1); Sodium 136 mmol/L (137-145); Total Protein 6.8 g/dL (6.3-8.2)
[2021-04-25 19:24] LABS: Troponin I < 0.012 ng/mL (0.01-0.034)
[2021-04-25 19:49] LABS: Bacteria Urine None Seen
[2021-04-25 20:47] VITALS: BP 110/68; PULSE 71; RESP 16; O2SAT 98
[2021-04-25 21:10] LABS: Amorphous Sediment Urine 1+; Culture Indicated Urine Cult Not Indicated; Mucus Urine 1+ (Negative); RBC Urine 1-5/HPF (0-5/HPF); Squamous Epithelial Cell Urine 1-5 /HPF (0-5/HPF); WBC Urine 0-1/HPF (0-5/HPF)
--- NOTE | 2021-04-29 14:35 | PC.NURSE ---
Late entry, Pt received 250ml of NS that was stopped at 204. 7
== END 2021-04-25 20:48 | disposition home or self-care (01) ==
PROVIDERS: Emergency Provider Emergency Medicine; PCP Family Medicine
DX: R07.89 Other chest pain (principal); N93.9 Abnormal uterine and vaginal bleeding, unspecified
CPT/HCPCS: 36415; 71045; 76830; 76856; 80053; 81003; 81015; 82550; 83690; 83735; 84484; 85025; 93005; 96360; 96361; 99284

== ENCOUNTER 2021-05-20 14:45 | Emergency (ER) | payer OTHER, MEDICAID, SELFPAY ==
[2021-05-20] VITALS (9 sets, daily range): BP systolic 92–139; BP diastolic 56–87; PULSE 73–110; RESP 11–23; TEMP 36.9–37.4; O2SAT 95–98
--- NOTE | 2021-05-20 14:54 | DI.RAD.S_ITS ---
PROCEDURE: XR CHEST 1V INDICATIONS: chest pain TECHNIQUE: One view of the chest was acquired. COMPARISON: [facility], CR, XR CHEST 1V, 04/25/2021, 18:56. FINDINGS: Surgical changes and devices: None. Lungs and pleura: Lungs are clear. No pleural effusions or pneumothorax. Mediastinum: Mediastinal contours appear normal. Heart size is normal. Bones and chest wall: No suspicious bony lesions. Overlying soft tissues appear unremarkable. IMPRESSION: No acute cardiopulmonary disease process. Dictated by: Sherice Francisco MD, PhD on 05/20/2021 at 15:45 Approved by: Sherice Francisco MD, PhD on 05/20/2021 at 15:45
--- NOTE | 2021-05-20 15:29 | CM.SWNOTE ---
ACCOUNTING AUDITOR Note ACCOUNTING AUDITOR receives consult and enters room. Patient is 30 yo female who presents to this ED with concerns of chest pain. Patient presents as A/Ox4. ACCOUNTING AUDITOR describes role in this ED. Patient declines ACCOUNTING AUDITOR services and reports she just wants to see the doctor and does not want to speak with ACCOUNTING AUDITOR. ACCOUNTING AUDITOR states that ACCOUNTING AUDITOR will be here in this ED if patient changes mind, patient indicates understanding. Plan: patient to be see by ED provider for further evaluation for POC. Patricia Lopez MSW
[2021-05-20 15:41] LABS: Add Manual Diff / Slide Review NO; Basophils Absolute Auto 0 /uL (0-100); Basophils Percent Auto 0.3 % (0-2); Eosinophils Absolute Auto 200 /uL (0-450); Eosinophils Percent Auto 2.2 % (2-4); Hematocrit 38.9 % (36-46); Hemoglobin 12.9 g/dL (12.0-16.0); Lymphocytes Absolute Auto 1700 /uL (1100-4500); Lymphocytes Percent Auto 22.1 % (25-40); Mean Corpuscular HGB Conc 33.1 % (30-36); Mean Corpuscular Hemoglobin 32.3 PG (26-34); Mean Corpuscular Volume 97.8 fL (80-100); Monocytes Absolute Auto 400 /uL (0-900); Monocytes Percent Auto 5.1 % (3-14); Neutrophils Absolute Auto 5500 /uL (1500-7000); Neutrophils Percent Auto 70.3 % (50-75); Platelet Count 268 X10^3/uL (150-400); Red Blood Cell Count 3.97 X10^6/uL (4.0-5.2); Red Cell Distribution Width 13.3 % (11.6-14.8); White Blood Cell Count 7.9 X10^3/uL (4.5-11.0)
[2021-05-20 15:49] LABS: Alanine Aminotransferase 12 IU/L (<35); Albumin 4.3 g/dL (3.5-5.0); Albumin Globulin Ratio 1.5 (1.0-2.8); Alkaline Phosphatase 68 U/L (38-126); Aspartate Aminotransferase 19 IU/L (14-36); BUN Creatinine Ratio 12.9 (6-22); Bilirubin Total 0.3 mg/dL (0.2-1.3); Blood Urea Nitrogen 9 mg/dL (7-17); Calcium 8.9 mg/dL (8.4-10.2); Carbon Dioxide 21 mmol/L (22-32); Chloride 108 mmol/L (98-107); Creatine Kinase 48 U/L (30-135); Estimated Glomerular Filt Rate > 60.0 mL/min (>60); Globulin 2.8 g/dL (1.7-4.1); Glucose 101 mg/dL (70-100); HEMOLYSIS < 15 (0-50); Lipase 192 U/L (23-300); Sodium 137 mmol/L (137-145); Total Protein 7.1 g/dL (6.3-8.2)
[2021-05-20 16:01] LABS: Troponin I < 0.012 ng/mL (0.01-0.034)
--- NOTE | 2021-05-20 16:32 | PC.NURSE ---
pt states the pain is the upper chest, around clavicles, and upper back feels like i'm being squeezed pt also states she had swelling on the rt side of her throat a couple of days ago and then today coughed up spit and it has some blood in it.
--- NOTE | 2021-05-20 17:04 | ED.CHESTPAIN ---
HPI - Chest Pain General Chief Complaint: Chest Pain Stated Complaint: Coughing Up Blood, Chest Pain, Dizzy Time Seen by Provider: 05/20/21 15:41 Source: patient Mode of arrival: Ambulatory History of Present Illness HPI narrative: The patient is a 30-year-old female who presents with chest discomfort today. She actually has been seen and evaluated multiple times in the past few weeks for a variety of things including chest pain, anxiety and vaginal bleeding. She is a single mom who does suffer from anxiety she is off all of her into depression and anxiety medications could she thought she was having a reaction. However she continues to feel chest tightness and some shortness of breath. She also smokes marijuana and cigar in a bong multiple times daily for her anxiety. she previously had an inhaler that she used however it . She was unable to tell if it helped. She also is coughing up some small amounts of hemoptysis. She denies any fever or chills. She says that she has a smoker cough her multiple years but has not noticed anything worse. she denies any significant or severe chest pain no radiation. No fevers or chills Related Data Previous Rx's Medication Instructions Recorded fluoxetine 40 mg capsule 40 mg PO DAILY #30 cap 12/21/20 hydroxyzine HCl 25 mg tablet 25 mg PO BEDTIME PRN #30 tab 04/16/21 albuterol sulfate 90 mcg/actuation 2 puff INHALATION Q4-6H PRN #8.5 05/20/21 aerosol inhaler gram Allergies Allergy/AdvReac Type Severity Reaction Status Date / Time amoxicillin Allergy Severe Hives Verified 04/25/21 17:41 Penicillins Allergy Severe UNK Verified 04/25/21 17:41 venlafaxine AdvReac Severe loss of Verified 04/25/21 17:41 control of her eyes, visual changes, vomiting Review of Systems Review of Systems Narrative: GENERAL: Denies chills, fatigue, malaise, fever, sweats, travel HEENT: Denies sinus pain, ear pain, sore throat, difficulty swallowing, neck pain RESPIRATORY: Denies dyspnea, cough, wheezing, hemoptysis, sputum. CARDIOVASCULAR: Chest tightness, see HPI GASTROINTESTINAL: Denies nausea, vomiting, abdominal pain, diarrhea, constipation, melena. : Denies dysuria, frequency, incontinence, hematuria, urinary retention, flank pain. MUSCULOSKELETAL: Denies weakness, joint pain, or bony pain SKIN: No rash, no erythema, no pruritus NEUROLOGIC: Denies weakness, dizziness, headache, numbness, change in speech, confusion PSYCHIATRIC: No concerning psychosocial issues. 12 point review of systems is negative except for those stated above and HPI Patient History Medical History (Updated 05/20/21 @ 18:26 by Chasity Toussaint DO) Acne Anxiety Depression Eating disorder Foot pain (2006) Surgical History Anesthesia History of surgery (1999) History of third molar tooth extraction (~2008) Status post left foot surgery (~2009) Family History Grandfather Heart attack Brother No problems noted. Brother No problems noted. Father No problems noted. Grandmother No problems noted. Grandfather No problems noted. Grandmother No problems noted. Mother No problems noted. Social History marital status: unmarried,single number of children: 1 caregiver/support person: No housing: apartment pets and animals: No education level: college occupational status: employed current occupational exposures/hazards: No seatbelt use: always helmet use: Yes water heater temp set < 120 deg: Yes working smoke detector in home: Yes fire extinguisher in home: Yes carbon monox detector in home: Yes firearms in home: No do you feel safe at home: Yes Smoking Status: Current every day smoker substance use type: does not use during the past year weight has: increased > 10 lbs well-balanced diet: about half the time daily servings fruits/ve-4 caffeine: Yes eating out: 1-3 times/week Type(s) of exercise: walking frequency: 3-4 times per week duration: decline to answer Smoking Status: Current every day smoker alcohol intake frequency: holidays/special occasions only Substance Use Type: marijuana Exam Initial Vital Signs Initial Vital Signs: Vital Signs Temperature 99.3 F 05/20/21 14:49 Pulse Rate 110 H 05/20/21 14:49 Respiratory Rate 20 05/20/21 14:49 Blood Pressure 139/87 05/20/21 14:49 Pulse Oximetry 98 05/20/21 14:49 GENERAL: Well-appearing, well-nourished and in no acute distress. HEENT: Head atraumatic,EOMI, pupils reactive, face symmetric, moist mucous membranes CARDIOVASCULAR: Regular rate and rhythm without murmurs, rubs or gallops. RESPIRATORY: Breath sounds equal bilaterally, no wheezes rales or rhonchi. ABDOMEN: Soft, nontender. Normoactive bowel sounds all 4 quadrants. No guarding or rebound EXTREMITIES: Normal range of motion, no clubbing or edema. Neurovascularly intact NEUROLOGICAL: Alert and oriented x4.Normal gait and speech. SKIN: Warm, dry, no laceration, no petechiae, no rashes or lesions. Scores PERC Score Age greater than or equal to 50 years: No Heart rate greater than or equal to 100 bpm: Yes Room Air O2 Sat less than 95%: No Unilateral leg swelling: No Recent trauma or surgery: No Hemoptysis: Yes Prior PE or DVT: No Hormone Use: No Total PERC Score: 2 Wells' Criteria for PE Clinical signs and symptoms of DVT: No PE is #1 Dx or equally likely: No Heart rate > 100: No Immobilization at least 3 days or surg in previous 4 weeks: No History of PE or DVT: No Hemoptysis: Yes Malignancy w/Treatment within 6 months or palliative: No Wells' PE Score total: 1 Course Orders Ordered: Discontinued Medications Albuterol/Ipratropium (Albuterol/Ipratropium 3 Ml Ampul) 3 ml INH NOW ONE Stop: 05/20/21 17:21 Last Admin: 05/20/21 18:16 Dose: 3 ml Documented by: JOS Ibuprofen (Ibuprofen 400 Mg Tablet) 400 mg PO NOW ONE Stop: 05/20/21 18:44 Last Admin: 05/20/21 18:47 Dose: 400 mg Documented by: NICHOLAS Vital Signs Vital signs: Vital Signs - 8 hr 05/20/21 14:49 05/20/21 16:15 05/20/21 16:30 Temperature 99.3 F Pulse Rate 110 H 91 H 82 Respiratory Rate 20 Blood Pressure 139/87 95/63 92/59 L Pulse Oximetry 98 96 95 05/20/21 16:41 05/20/21 17:00 05/20/21 17:30 Temperature 98.4 F Pulse Rate 76 86 74 Respiratory Rate 16 15 23 Blood Pressure 92/59 L 99/66 97/65 Pulse Oximetry 97 97 96 05/20/21 18:00 Temperature Pulse Rate 75 Respiratory Rate 23 Blood Pressure 93/56 L Pulse Oximetry 96 MDM - Chest Pain Lab Data Result diagrams: 05/20/21 15:25 05/20/21 15:25 Labs: Lab Results 05/20/21 05/20/21 05/20/21 Range/Units 15:25 15:25 15:25 WBC 7.9 (4.5-11.0) X10^3/uL RBC 3.97 L (4.0-5.2) X10^6/uL Hgb 12.9 (12.0-16.0) g/dL Hct 38.9 (36-46) % MCV 97.8 (80-100) fL MCH 32.3 (26-34) PG MCHC 33.1 (30-36) % RDW 13.3 (11.6-14.8) % Plt Count 268 (150-400) X10^3/uL Neut % (Auto) 70.3 (50-75) % Lymph % (Auto) 22.1 L (25-40) % Preble % (Auto) 5.1 (3-14) % Eos % (Auto) 2.2 (2-4) % Baso % (Auto) 0.3 (0-2) % Neut # (Auto) 5500 (1728-4201) /uL Lymph # (Auto) 1700 (8574-9253) /uL Preble # (Auto) 400 (0-900) /uL Eos # (Auto) 200 (0-450) /uL Baso # (Auto) 0 (0-100) /uL D-Dimer < 200 (<230) ng/mL Sodium 137 (137-145) mmol/L Potassium 4.0 (3.4-5.1) mmol/L Chloride 108 H (98-107) mmol/L Carbon Dioxide 21 L (22-32) mmol/L BUN 9 (7-17) mg/dL Creatinine 0.70 (0.52-1.04) mg/dL Estimated GFR > 60.0 (>60) mL/min BUN/Creatinine Ratio 12.9 (6-22) Glucose 101 H (70-100) mg/dL Calcium 8.9 (8.4-10.2) mg/dL Total Bilirubin 0.3 (0.2-1.3) mg/dL AST 19 (14-36) IU/L ALT 12 (<35) IU/L Alkaline Phosphatase 68 (38-126) U/L Total Creatine Kinase 48 (30-135) U/L CK-MB (CK-2) TNP CK-MB (CK-2) Rel Index TNP Troponin I < 0.012 (0.01-0.034) ng/mL Total Protein 7.1 (6.3-8.2) g/dL Albumin 4.3 (3.5-5.0) g/dL Globulin 2.8 (1.7-4.1) g/dL Albumin/Globulin Ratio 1.5 (1.0-2.8) Lipase 192 (23-300) U/L SARS-CoV-2 (PCR) (Negative) 05/20/21 Range/Units 17:44 WBC (4.5-11.0) X10^3/uL RBC (4.0-5.2) X10^6/uL Hgb (12.0-16.0) g/dL Hct (36-46) % MCV (80-100) fL MCH (26-34) PG MCHC (30-36) % RDW (11.6-14.8) % Plt Count (150-400) X10^3/uL Neut % (Auto) (50-75) % Lymph % (Auto) (25-40) % Preble % (Auto) (3-14) % Eos % (Auto) (2-4) % Baso % (Auto) (0-2) % Neut # (Auto) (7421-4359) /uL Lymph # (Auto) (8224-5412) /uL Preble # (Auto) (0-900) /uL Eos # (Auto) (0-450) /uL Baso # (Auto) (0-100) /uL D-Dimer (<230) ng/mL Sodium (137-145) mmol/L Potassium (3.4-5.1) mmol/L Chloride (98-107) mmol/L Carbon Dioxide (22-32) mmol/L BUN (7-17) mg/dL Creatinine (0.52-1.04) mg/dL Estimated GFR (>60) mL/min BUN/Creatinine Ratio (6-22) Glucose (70-100) mg/dL Calcium (8.4-10.2) mg/dL Total Bilirubin (0.2-1.3) mg/dL AST (14-36) IU/L ALT (<35) IU/L Alkaline Phosphatase (38-126) U/L Total Creatine Kinase (30-135) U/L CK-MB (CK-2) CK-MB (CK-2) Rel Index Troponin I (0.01-0.034) ng/mL Total Protein (6.3-8.2) g/dL Albumin (3.5-5.0) g/dL Globulin (1.7-4.1) g/dL Albumin/Globulin Ratio (1.0-2.8) Lipase (23-300) U/L SARS-CoV-2 (PCR) Negative (Negative) Imaging Data Chest x-ray: Radiologist's Impression: PROCEDURE: XR CHEST 1V INDICATIONS: chest pain TECHNIQUE: One view of the chest was acquired. COMPARISON: [facility], , XR CHEST 1V, 04/25/2021, 18:56. FINDINGS: Surgical changes and devices: None. Lungs and pleura: Lungs are clear. No pleural effusions or pneumothorax. Mediastinum: Mediastinal contours appear normal. Heart size is normal. Bones and chest wall: No suspicious bony lesions. Overlying soft tissues appear unremarkable. IMPRESSION: No acute cardiopulmonary disease process. Dictated by: Sherice Francisco MD, PhD on 05/20/2021 at 15:45 ECG Data Interpretation: Normal sinus rhythm rate 86 p.r. interval 122 QRS [address] changes no T-wave inversions similar to previous EKGs [facility] Narrative Medical decision making narrative: Her life. She does have cough with hemoptysis. His she is low risk with a low Wells score and low PERC score for pulmonary embolism. D-dimer however is negative at this time I think on the likely to be pulmonary embolism. No evidence of pneumonia on x-ray symptoms also not consistent with an pneumonia. At this time I suspect more of an anxiety and stress reaction. She is for to talk with social work multiple times but opted not to. This time I recommend outpatient follow-up. She did actually feel better after DuoNeb treatment she is given albuterol and a spacer by respiratory Discharge Plan Departure Patient Disposition: Home Clinical Impression: Mild intermittent reactive airway disease Instructions: DI for Reactive Airway Disease-Adult Activity Restrictions/Additional Instructions: *You have been diagnosed with reactive airway disease *What to do: I believe your chest tightness today is likely related to some reactive airway disease which is like asthma. However you do need to have different testing done please talk with her primary care provider *Continue to take medications as directed albuterol 1-2 puffs with spacer if needed for chest tightness *Follow up with your primary care provider in 2-3 days *Return to ER if you should have increasing chest pain, shortness of breath, dizziness lightheadedness [or] any new, worsening or concerning symptoms Prescriptions: New albuterol sulfate 90 mcg/actuation HFA aerosol inhaler 2 puff INHALATION Q4-6H PRN (Reason: shortness of breath or wheezing) Qty: 8.5 RF: 0 No Action fluoxetine 40 mg capsule 40 mg PO DAILY Qty: 30 RF: 2 hydroxyzine HCl 25 mg tablet 25 mg PO BEDTIME PRN (Reason: sleep) Qty: 30 RF: 1 Referrals: Criselda Griffin MD [Primary Care Provider] -
[2021-05-20 17:32] LABS: D Dimer < 200 ng/mL (<230)
--- NOTE | 2021-05-20 17:44 | PC.NURSE ---
speaking with the patient she became tearful discussing how overwhelmed she is with her two children, she also mentions she is concerned she's got lung cancer or copd from smoking tobacco and marijuana in a bong. we talked for a moment discussing the test we've done and how they look good so far. pt calmed and no longer tearful.
[2021-05-20 18:09] LABS: COVID19 -Nasal RAPID Negative (Negative)
[2021-05-20] MEDS: ALBUTEROL/IPRATROPIUM 3 ML AMPUL INH (18:16)
[2021-05-20] MEDS: IBUPROFEN 400 MG TABLET PO (18:47)
== END 2021-05-20 18:50 | disposition home or self-care (01) ==
PROVIDERS: Emergency Provider Emergency Medicine; PCP Family Medicine
DX: J45.20 Mild intermittent asthma, uncomplicated (principal); F41.9 Anxiety disorder, unspecified; N93.9 Abnormal uterine and vaginal bleeding, unspecified; R06.02 Shortness of breath; Z20.822 Contact with and (suspected) exposure to COVID-19
CPT/HCPCS: 36415; 71045; 80053; 82550; 83690; 84484; 85025; 85379; 87635; 93005; 94640; 99284; C9803

== ENCOUNTER 2021-06-10 18:46 | Emergency (ER) | payer OTHER, MEDICAID, SELFPAY ==
[2021-06-10 19:15] VITALS: BP 129/75; PULSE 98; RESP 14; TEMP 36.6; O2SAT 97; BMI 29.2
--- NOTE | 2021-06-10 22:53 | ED.RECABL ---
HPI - Recheck/Abnormal Lab/Rx General Chief Complaint: Recheck/Abnormal Lab/Rx Stated Complaint: LEFT EAR SWELLING Time Seen by Provider: 06/10/21 22:53 Source: patient Mode of arrival: Ambulatory Limitations: no limitations History of Present Illness HPI narrative: This is a 31-year-old female who comes to the emergency department with complaint of swelling of both ears. Patient states she has had symptoms for the past 2 months. She states she has been told multiple times that other people do not appreciate the changes. She does have images which do show some changes that seem to be localized to the outer tragus and pinna just above her prior piercings. Patient states she has been on 2 rounds of amoxicillin followed by doxycycline which she is currently taking. She also tried some swimmer ears otic drops which she found helpful but used many times. Patient has been using Q-tips intermittently. She states the pain seems more localized outside but is somewhat inside the ear. She appreciated and appreciates discomfort and swelling of the lymph nodes in her neck, back and headache. She also had some swelling of her anterior chest which she states got better after the 1st round of antibiotics. She also notes a little bit of dental pain on the front upper incisor on the left. Patient states she takes fluoxetine. She denies any other medical issues. She states she has been her primary care several times. She states she followed up here today because her job would not let her take off time to follow-up outpatient with her physician. She has not had similar symptoms in the past. She states that her symptoms do not come and go but have been present without improvement except after using the ear drops. She does like to take baths regularly. She denies any regular swimming. She does use Q-tips regularly. She states her piercings have been present for a long period of time and she currently has all of her joule rate out. Patient does not know of any other topical products or exposures that are likely to have caused her symptoms. Related Data Previous Rx's Medication Instructions Recorded hydroxyzine HCl 25 mg tablet 25 mg PO BEDTIME PRN #30 tab 04/16/21 albuterol sulfate 90 mcg/actuation 2 puff INHALATION Q4-6H PRN #8.5 05/20/21 aerosol inhaler gram cephalexin 500 mg capsule 500 mg PO BID #20 cap 05/21/21 fluoxetine 20 mg capsule 20 mg PO DAILY #30 cap 05/21/21 doxycycline hyclate 100 mg capsule 100 mg PO BID #10 cap 06/06/21 Allergies Allergy/AdvReac Type Severity Reaction Status Date / Time amoxicillin Allergy Severe Hives Verified 06/08/21 18:04 Penicillins Allergy Severe UNK Verified 06/08/21 18:04 venlafaxine AdvReac Severe loss of Verified 06/08/21 18:04 control of her eyes, visual changes, vomiting Review of Systems Review of Systems ROS Unobtainable: All systems reviewed & are unremarkable except as noted in HPI and below Patient History Medical History (Updated 06/10/21 @ 23:26 by Cassie Slater DO) Acne Anxiety Depression Eating disorder Foot pain (2006) Otalgia of both ears Surgical History Anesthesia History of surgery (1999) History of third molar tooth extraction (~2008) Status post left foot surgery (~2009) Family History Grandfather Heart attack Brother No problems noted. Brother No problems noted. Father No problems noted. Grandmother No problems noted. Grandfather No problems noted. Grandmother No problems noted. Mother No problems noted. Social History marital status: unmarried,single number of children: 1 caregiver/support person: No housing: apartment pets and animals: No education level: college occupational status: employed current occupational exposures/hazards: No seatbelt use: always helmet use: Yes water heater temp set < 120 deg: Yes working smoke detector in home: Yes fire extinguisher in home: Yes carbon monox detector in home: Yes firearms in home: No do you feel safe at home: Yes Smoking Status: Current every day smoker substance use type: does not use during the past year weight has: increased > 10 lbs well-balanced diet: about half the time daily servings fruits/ve-4 caffeine: Yes eating out: 1-3 times/week Type(s) of exercise: walking frequency: 3-4 times per week duration: decline to answer Smoking Status: Current every day smoker alcohol intake frequency: holidays/special occasions only Substance Use Type: marijuana Exam Narrative Exam Narrative: GEN: well nourished, well appearing female, alert and oriented x 3, patient appears to be in mild distress. HEENT: Atraumatic, pupils are equal round reactive to light, extraocular movements are intact, nares are clear, TMs are clear with no fluid, there is no conjunctival pallor. Throat is clear without any exudates, erythema, tonsillar enlargement or uvular deviation, patient has some induration of the left tragus although there are no skin changes in terms of color, warmth or fluctuance. Patient years do not appear significantly swollen. She does have some mild swelling on the right ear on the inner edge of the pinna just above her to lower piercings. They are mildly tender to touch. Patient does not have any other facial swelling. No swelling of the neck. No obvious lymphadenopathy. HEART: Regular rate and rhythm without murmur, clicks, rubs. LUNGS:Lungs clear to auscultation, no wheezes, rales, crackles, chest moves symmetrically ABD:bowel sounds normal, soft, non-tender, no guarding, rebound, rigidity, no masses noted, no hepatosplenomegaly MSCL: Non-tender, full range of motion, normal gait NEURO:CN 2-12 intact, sensation normal Initial Vital Signs Initial Vital Signs: Vital Signs Temperature 97.9 F 06/10/21 19:15 Pulse Rate 98 H 06/10/21 19:15 Respiratory Rate 14 06/10/21 19:15 Blood Pressure 129/75 06/10/21 19:15 Pulse Oximetry 97 06/10/21 19:15 Course Orders Ordered: Discontinued Medications Neomycin/Polymyxin/Hydrocortisone (Daren/Poly/Hydrocort Otic Prepack) 1 bottle MISC SEEINSTR ONE Stop: 06/10/21 23:26 Last Admin: 06/10/21 23:53 Dose: 1 bottle Documented by: LAKESHIA Tramadol HCl (Tramadol 50 Mg Prepack) 1 bottle MISC SEEINSTR ONE Stop: 06/10/21 23:30 Last Admin: 06/10/21 23:51 Dose: 1 bottle Documented by: LAKESHIA Vital Signs Vital signs: Vital Signs - 8 hr 06/10/21 23:57 Pulse Rate 77 Respiratory Rate 16 Blood Pressure 116/78 Pulse Oximetry 98 MDM - Recheck/Abnormal Lab/Rx MDM Narrative Medical decision making narrative: This is a 31-year-old female comes with bilateral swelling of her pinna and tragus. Patient has had symptoms she states 2 months. She states it has been continuous but has had some improvement after some swimmer's ear her ear drops. Patient has been on antibiotics with what she describes as minimal improvement although she states she also had swelling her anterior chest which resolved. Patient does have some mild swelling and induration along the edges the tragus and auricle but is not consistent with a cellulitis, patient and I discussed about possible exposures but she is unaware of any. We also discussed if she has had similar symptoms in the past her foot waxes and wanes such as an atypical angioedema. Patient also has piercings although the piercing holes are present she is not currently wearing any jewelry but per patient she is not wearing this regularly. Patient was prescribed antibiotic ear drops with steroids to see if this would have some improvement. Encouraged to follow-up with her primary care physician. Discharge Plan Departure Patient Disposition: Home Clinical Impression: Swelling of both ears Activity Restrictions/Additional Instructions: Follow up with your physician for recheck. I would recommend to continue doxycycline at this time. You have also given ear drops to use, this is a combination of antibiotic and steroid. Use 4 drops to both ears 4 times daily while awake x 10 days. Please return for fevers, hearing loss, rapidly worsening swelling of her head, neck, face, muffled voice or voice change, persistent vomiting, lightheadedness or passing out, swelling of your lips, tongue, new warmth, redness or skin changes or other new or concerning symptoms Prescriptions: No Action cephalexin 500 mg capsule 500 mg PO BID Qty: 20 RF: 0 fluoxetine 20 mg capsule 20 mg PO DAILY Qty: 30 RF: 0 hydroxyzine HCl 25 mg tablet 25 mg PO BEDTIME PRN (Reason: sleep) Qty: 30 RF: 1 doxycycline hyclate 100 mg capsule 100 mg PO BID Qty: 10 RF: 0 albuterol sulfate 90 mcg/actuation HFA aerosol inhaler 2 puff INHALATION Q4-6H PRN (Reason: shortness of breath or wheezing) Qty: 8.5 RF: 0 Referrals: Criselda Griffin MD [Primary Care Provider] -
[2021-06-10] MEDS: TRAMADOL 50 MG PREPACK 1 BOTTLE MISC (23:51)
[2021-06-10] MEDS: HYDROCORT MISC (23:53)
[2021-06-10] MEDS: NEO MISC (23:53)
[2021-06-10] MEDS: POLY MISC (23:53)
[2021-06-10 23:57] VITALS: BP 116/78; PULSE 77; RESP 16; O2SAT 98
== END 2021-06-10 23:58 | disposition home or self-care (01) ==
PROVIDERS: Emergency Provider Emergency Medicine; PCP Family Medicine
DX: H93.8X3 Other specified disorders of ear, bilateral (principal)
CPT/HCPCS: 99281; 99283